=== PATIENT | female | born 1945 | race Caucasian/White ===

== ENCOUNTER 2022-09-03 09:08 | Outpatient (CLI) | payer MEDICARE, SELFPAY ==
[2022-09-03 09:37] LABS: Basophils Percent Auto 0.4 % (0.2-1.2); Eosinophils Absolute Auto 0.2 K/mm3 (0-0.3); Eosinophils Percent Auto 2.7 % (0-4.4); Hematocrit 42.6 % (37.0-47.0); Hemoglobin 14.4 g/dL (12.0-15.0); Immature Granulocyte Absolute 0.02 K/mm3 (0.00-0.031); Immature Granulocyte Percent A 0.3 % (0-0.5); Lymphocytes Absolute Auto 2.39 K/mm3 (0.9-3.2); Lymphocytes Percent Auto 35.5 % (18.3-44.2); Mean Corpuscular HGB Conc 33.8 g/dl (32-36); Mean Corpuscular Hemoglobin 32.3 pg (26-34); Mean Corpuscular Volume 95.5 fl (80-100); Mean Platelet Volume 10.1 fl (7.4-10.4); Monocytes Absolute Auto 0.4 K/mm3 (0.1-0.6); Monocytes Percent Auto 5.6 % (2.6-8.5); Neutrophils Absolute Auto 3.7 K/mm3 (1.3-6.7); Neutrophils Percent Auto 55.5 % (45.5-73.1); Platelet Count Result 200 k/mm3 (150-375); Red Blood Count 4.46 M/mm3 (4.2-5.4); Red Cell Distribution Width 13.3 % (11.5-14.5); White Blood Count 6.7 K/mm3 (4.5-10.0)
[2022-09-03 11:23] LABS: Anion Gap 10 mmol/L (8-16); Blood Urea Nitrogen 21 mg/dL (7-17); Calcium 9.1 mg/dL (8.4-10.2); Carbon Dioxide 28 mmol/L (22-30); Chloride 102 mmol/L (98-107); Estimated Glomerular Filt Rate > 60; Glucose 124 mg/dL (65-110); Sodium 140 mmol/L (137-145)
[2022-09-05 23:24] LABS: Anti Cardio Antibody IgM <2.0 MPL-U/mL (<20.0); Anti Cardiolipin Antibody IgA <2.0 APL-U/mL (<20.0); Anti Cardiolipin Antibody IgG <2.0 GPL-U/mL (<20.0)
[2022-09-08 20:53] LABS: Lupus dRVVT Screen 33 sec (<=45); PTT-LA Screen 33 sec (<=40)
== END 2022-09-03 09:09 | disposition home or self-care (01) ==
LOC: ANHLAB 09:09
PROVIDERS: PCP Otolaryngology; Visit Provider Internal Medicine Hematology & Oncology
DX: R76.0 Raised antibody titer (principal)
CPT/HCPCS: 36415; 80048; 85025; 85613; 85730; 86146; 86147

== ENCOUNTER 2022-10-15 12:46 | Outpatient (CLI) | payer MEDICARE, SELFPAY ==
[2022-10-15 13:03] LABS: Basophils Percent Auto 0.4 % (0.2-1.2); Eosinophils Absolute Auto 0.3 K/mm3 (0-0.3); Eosinophils Percent Auto 4.1 % (0-4.4); Hematocrit 42.5 % (37.0-47.0); Hemoglobin 14.8 g/dL (12.0-15.0); Immature Granulocyte Absolute 0.01 K/mm3 (0.00-0.031); Immature Granulocyte Percent A 0.1 % (0-0.5); Lymphocytes Absolute Auto 2.54 K/mm3 (0.9-3.2); Lymphocytes Percent Auto 37.5 % (18.3-44.2); Mean Corpuscular HGB Conc 34.8 g/dl (32-36); Mean Corpuscular Hemoglobin 32.4 pg (26-34); Mean Platelet Volume 10.2 fl (7.4-10.4); Monocytes Absolute Auto 0.4 K/mm3 (0.1-0.6); Monocytes Percent Auto 5.5 % (2.6-8.5); Neutrophils Absolute Auto 3.6 K/mm3 (1.3-6.7); Neutrophils Percent Auto 52.4 % (45.5-73.1); Platelet Count Result 196 k/mm3 (150-375); Red Blood Count 4.57 M/mm3 (4.2-5.4); Red Cell Distribution Width 12.7 % (11.5-14.5); White Blood Count 6.8 K/mm3 (4.5-10.0)
[2022-10-15 16:39] LABS: Anion Gap 5 mmol/L (8-16); Blood Urea Nitrogen 16 mg/dL (7-17); Carbon Dioxide 30 mmol/L (22-30); Chloride 103 mmol/L (98-107); Estimated Glomerular Filt Rate > 60; Glucose 115 mg/dL (65-110); Potassium 3.8 mmol/L (3.4-5.0); Sodium 138 mmol/L (137-145)
[2022-10-21 02:42] LABS: Anti Cardio Antibody IgM <2.0 MPL-U/mL (<20.0); Anti Cardiolipin Antibody IgA <2.0 APL-U/mL (<20.0); Anti Cardiolipin Antibody IgG <2.0 GPL-U/mL (<20.0)
[2022-10-21 16:08] LABS: Lupus dRVVT Screen 31 sec (<=45); PTT-LA Screen 32 sec (<=40)
== END 2022-10-15 12:47 | disposition home or self-care (01) ==
LOC: ANHLAB 12:46
PROVIDERS: PCP Otolaryngology; Visit Provider Internal Medicine Hematology & Oncology
DX: R76.0 Raised antibody titer (principal)
CPT/HCPCS: 36415; 80048; 85025; 85613; 85730; 86146; 86147

== ENCOUNTER 2024-09-20 10:11 | Inpatient (IN) | payer MEDICARE, SELFPAY ==
[2024-09-20] VITALS (14 sets, daily range): BP systolic 116–140; BP diastolic 60–92; PULSE 65–83; RESP 16–20; TEMP 36.4–36.6; O2SAT 94–100; BMI 36.4
--- NOTE | ~2024-09-20 | CT_ITS ---
CT head without contrast Indication: Altered mental status Technique: Serial scans were obtained through the brain without the administration of contrast. Dose reduction technique was used on this scan by utilizing automated exposure control and iterative recon struction technique. The dose-length product (DLP) was 681.00 mGy-cm. Findings: There is no evidence of intracranial hemorrhage, mass lesion, or acute infarct. The ventri cles and subarachnoid spaces are dilated, consistent with mild atrophy. Low attenuation regions are seen within the periventricular white matter bilaterally, likely representing changes from chronic mi crovascular ischemic disease. There is no evidence of edema, mass effect or midline shift. The visu alized paranasal sinuses and mastoid air cells are clear. Impression: No intracranial hemorrhage, mass, or acute infarct. Atrophy and chronic white matter changes, as above. Reviewed, dictated and finalized at location . KKEEPER Impression: No intracranial hemorrhage, mass, or acute infarct. Atrophy and chronic white matter changes, as above.
--- NOTE | ~2024-09-20 | XR_ITS ---
Portable chest x-ray Comparison: None Clinical History: Weakness, altered mental status Findings: Lungs are clear, without focal consolidation or pleural effusion. Cardiomediastinal silho uette is minimally prominent, possibly due to AP technique. Bones and soft tissues are unremarkable. Impression: Clear lungs. Reviewed, dictated and finalized at [facility]. OLOGY SPECIALIST Impression: Clear lungs.
--- NOTE | 2024-09-20 10:49 | ECG_ITS ---
Test Date: 2024-09-20 11:10:05 Measurements Intervals [place] Rate: 73 P: 15 LA: 152 QRS: -15 QRSD: 81 T: 18 QT: 392 QTc: 433 Interpretive Statements SINUS RHYTHM LOW QRS VOLTAGE IN PRECORDIAL LEADS VOLTAGE CRITERIA FOR LVH BASELINE ARTIFACT- I, III BORDERLINE ECG No previous ECG available for comparison Electronically Signed On 09-20-2024 11:35:03 [employer] by Gurmeet Baltazar D.O.
[2024-09-20] MEDS: SODIUM CHLORIDE 0.9% IV 1,000 ML 999 ML IV CONT (11:11)
[2024-09-20 11:17] LABS: Glucose Point of Care 124 mg/dl (65-105)
[2024-09-20 11:20] LABS: Basophils Percent Auto 0.8 % (0.2-1.2); Hemoglobin 13.6 g/dL (12.0-15.0); Immature Granulocyte Absolute 0.01 K/mm3 (0.00-0.031); Immature Granulocyte Percent A 0.3 % (0-0.5); Lymphocytes Percent Auto 25.5 % (18.3-44.2); Mean Corpuscular HGB Conc 34.9 g/dl (32-36); Mean Corpuscular Hemoglobin 31.9 pg (26-34); Mean Corpuscular Volume 91.5 fl (80-100); Mean Platelet Volume 10.4 fl (7.4-10.4); Monocytes Absolute Auto 0.5 K/mm3 (0.1-0.6); Monocytes Percent Auto 13.3 % (2.6-8.5); Neutrophils Absolute Auto 2.3 K/mm3 (1.3-6.7); Neutrophils Percent Auto 59.1 % (45.5-73.1); Platelet Count Result 162 k/mm3 (150-375); Red Blood Count 4.26 M/mm3 (4.2-5.4); Red Cell Distribution Width 13.3 % (11.5-14.5); White Blood Count 3.9 K/mm3 (4.5-10.0)
[2024-09-20 11:32] LABS: Lipase 42 U/L (23-300); Magnesium 1.8 mg/dL (1.6-2.3); Phosphorus 3.2 mg/dL (2.5-4.5)
[2024-09-20 11:33] LABS: Alanine Aminotransferase 18 U/L (6-35); Albumin Level 3.8 g/dL (3.5-5.1); Alkaline Phosphatase 82 U/L (38-126); Anion Gap 6 mmol/L (4-12); Aspartate Amino Transferase 24 U/L (14-36); Bilirubin,Total 0.5 mg/dL (0.2-1.3); Blood Urea Nitrogen 14 mg/dL (7-17); Calcium 8.4 mg/dL (8.4-10.2); Carbon Dioxide 25 mmol/L (22-30); Chloride 105 mmol/L (98-107); Estimated CRCL calculation 55 ml/min; Estimated Glomerular Filt Rate > 60; Glucose 125 mg/dL (65-110); Potassium 3.8 mmol/L (3.4-5.0); Sodium 136 mmol/L (137-145)
[2024-09-20 11:34] LABS: INR 1.1; Prothrombin Time 14.2 Seconds (11.1-14.7)
[2024-09-20 11:35] LABS: Partial Thromboplastin Time 28.8 Seconds (22.3-36.8)
[2024-09-20 11:44] LABS: Troponin I < 0.012 ng/mL (0.000-0.034)
[2024-09-20 11:57] LABS: Influenza A QL RT-PCR Negative (Negative); Influenza B QL RT-PCR Negative (Negative); RSV RNA, RT-PCR Negative (Negative); SARS-CoV-2 RNA PCR Positive (Negative)
[2024-09-20 12:20] LABS: Add Urine Microscopic? YES; Appearance Urine Clear (Clear); Bacteria Urine None Seen /hpf; Bilirubin Urine Negative (Negative); Blood Urine Negative (Negative); Color Urine Yellow (Yellow); Glucose Urine UA Negative (Negative); Ketones Urine Negative (Negative); Leukocyte Esterase Ur Negative LEU/UL (Negative); Mucus Urine Present /lpf; Nitrate Urine Negative (Negative); Non Pathogenic Casts 0-2; Protein Urine Trace mg/dL (Negative); RBC Urine 0-2 /hpf (0-2); Specific Grav Ur 1.025 (1.001-1.035); Squamous Epithelial Cell Urine None Seen /hpf (Few); Urobilinogen Urine 0.2 mg/dL (<2.0); WBC Urine 0-5 /hpf (0-3)
--- NOTE | 2024-09-20 13:35 | ED_ITS ---
HPI - General Adult General Chief complaint: Neuro Symptoms/Deficit Stated complaint: nausea vomiting diarrhea confusion Time Seen by Provider: 09/20/24 10:48 History of Present Illness HPI narrative: this is an 79-year-old female history of white disease ED with chief confusion. Over the last several days the patient has been having nausea vomiting and diarrhea. Earlier this morning she had a period of confusion where she cannot figure out how to use the phone. Family was concerned they called EMS and she was brought to hospital for evaluation. At this time the patient Is resting comfortably in bed. She has an NIH is 0 with no neurologic deficits. She is denying fevers chills chest pain difficulty breathing abdominal pain. She is not nauseous at the moment. One of her family members has recently been sick with COVID. Related Data Home Medications Medication Instructions Recorded Confirmed Vitamin D3 2,000 units PO DAILY 10/15/21 10/15/21 diclofenac sodium 75 mg 75 mg PO DAILY 10/15/21 10/15/21 tablet,delayed release escitalopram oxalate 5 mg tablet 5 mg PO 04/15/23 Allergies Allergy/AdvReac Type Severity Reaction Status Date / Time pneumococcal vaccine Allergy Mild Hives Verified 05/17/23 10:02 [facility] Past Medical History Medical History Anxiety Arthritis Colon cancer Vaginitis Surgical History Surgical History H/O hernia repair History of cholecystectomy History of colon surgery Family History Family History Father Diabetes mellitus Mother Heart disease Colon cancer Sibling Colon cancer Other Malignant neoplasm of prostate Social History Social History Smoking status: Never smoker Alcohol intake: never Substance use: never Substance use type: does not use Living arrangements: alone Spiritual care concerns: No Exam Narrative: APPEARANCE: No apparent distress. smiling and laughing during interview Head: atraumatic. EYES: EOMI, NOSE: Atraumatic NECK: Trachea midline RESPIRATORY: No increased rate of breathing, CTAB CARDIOVASCULAR: RRR, ABDOMINAL: Non-distended soft nontender no guarding rebound MUSCULOSKELETAl: No obvious deformities NEURO: Alert. Cranial nerves 2-12 grossly intact. Sensation light touch, motor function cerebellar function intact for 4 extremities. Gait exam was Deferred SKIN:: Warm, dry. Normal color PSYCHIATRIC: Normal affect Course Vital Signs Vital signs: Vital Signs Temperature 98 F 09/20/24 10:24 Pulse Rate 74 09/20/24 10:24 Respiratory Rate 19 09/20/24 10:24 Blood Pressure 140/73 09/20/24 10:24 Pulse Oximetry 95 09/20/24 10:24 Oxygen Delivery Room Air 09/20/24 10:24 Temperature 98 F 09/20/24 10:24 Pulse Rate 83 09/20/24 14:04 Respiratory Rate 20 09/20/24 14:04 Blood Pressure 126/92 H 09/20/24 14:04 Pulse Oximetry 100 09/20/24 14:04 Oxygen Delivery Room Air 09/20/24 10:24 Medical Decision Making MDM Narrative Medical decision making narrative: -Course: 79-year-old female presenting with several days of nausea/vomiting/diarrhea and then an episode of confusion earlier today. Family was initially concerned for CVA, NIH is 0 and there is no concern for CVA. Infectious workup was positive for COVID. The rest of her imaging laboratory studies were within normal limits. While the patient is saturating well on room air at rest, she failed an ambulatory pulse ox test and desaturated to 82% after a short walk. Patient will be admitted to the hospital for further management. -DDX includes but is not limited to: UTI sepsis stroke pneumonia viral syndrome -Co-morbidities complicating care: white matter disease, anxiety -Social determinants of health: lives with family, denies use of drugs or alcohol -Hx from independent Sources: family at bedside -Independent interpretation of studies: labs imaging reviewed Independent EKG interpretation: Rhythm [sinus], Rate [73], [place] -[normal], [place] -[normal], QRS [narrow], QTC [normal], T waves -[negative for concerning inversions], ST Segments - [Negative for concerning elevations] Final interpretations: [Normal Sinus Rhythm] -Interventions: 1 L NS -Shared decision making / Disposition:Admitted. Vital Signs Vital Signs: Vital Signs Temperature 98 F 09/20/24 10:24 Pulse Rate 74 09/20/24 10:24 Respiratory Rate 19 09/20/24 10:24 Blood Pressure 140/73 09/20/24 10:24 Pulse Oximetry 95 09/20/24 10:24 Oxygen Delivery Room Air 09/20/24 10:24 Temperature 98 F 09/20/24 10:24 Pulse Rate 83 09/20/24 14:04 Respiratory Rate 20 09/20/24 14:04 Blood Pressure 126/92 H 09/20/24 14:04 Pulse Oximetry 100 09/20/24 14:04 Oxygen Delivery Room Air 09/20/24 10:24 Lab Data 09/20/24 11:13 09/20/24 11:13 Labs: Lab Results 09/20/24 09/20/24 09/20/24 Range/Units 11:10 11:13 11:44 WBC 3.9 L (4.5-10.0) K/mm3 RBC 4.26 (4.2-5.4) M/mm3 Hgb 13.6 (12.0-15.0) g/dL Hct 39.0 (37.0-47.0) % MCV 91.5 (80-100) fl MCH 31.9 (26-34) pg MCHC 34.9 (32-36) g/dl RDW 13.3 (11.5-14.5) % Plt Count 162 (150-375) k/mm3 MPV 10.4 (7.4-10.4) fl Immature Gran % (Auto) 0.3 (0-0.5) % Neut % (Auto) 59.1 (45.5-73.1) % Lymph % (Auto) 25.5 (18.3-44.2) % Major % (Auto) 13.3 H (2.6-8.5) % Eos % (Auto) 1.0 (0-4.4) % Baso % (Auto) 0.8 (0.2-1.2) % Lymph # (Auto) 1.00 (0.9-3.2) K/mm3 Major # (Auto) 0.5 (0.1-0.6) K/mm3 Eos # (Auto) 0.0 (0-0.3) K/mm3 Baso # (Auto) 0.0 (0.0-0.1) K/mm3 Abs Immat Gran (auto) 0.01 (0.00-0.031) K/mm3 Absolute Neuts (auto) 2.3 (1.3-6.7) K/mm3 Absolute Nucleated RBC 0.000 (0.0-0.012) K/mm3 Nucleated RBC % 0.0 (0.0-0.2) % PT 14.2 (11.1-14.7) Seconds INR 1.1 APTT 28.8 (22.3-36.8) Seconds Sodium 136 L (137-145) mmol/L Potassium 3.8 (3.4-5.0) mmol/L Chloride 105 (98-107) mmol/L Carbon Dioxide 25 (22-30) mmol/L Anion Gap 6 (4-12) mmol/L BUN 14 (7-17) mg/dL Creatinine 0.70 (0.7-1.0) mg/dL Estim Creat Clear Calc 55 ml/min Estimated GFR > 60 (59 - ) Glucose 125 H (65-110) mg/dL POC Capillary Glucose 124 H (65-105) mg/dl Calcium 8.4 (8.4-10.2) mg/dL Phosphorus 3.2 (2.5-4.5) mg/dL Magnesium 1.8 (1.6-2.3) mg/dL Total Bilirubin 0.5 (0.2-1.3) mg/dL AST 24 (14-36) U/L ALT 18 (6-35) U/L Alkaline Phosphatase 82 (38-126) U/L Troponin I < 0.012 (0.000-0.034) ng/mL Total Protein 7.0 (6.3-8.2) g/dL Albumin 3.8 (3.5-5.1) g/dL Lipase 42 (23-300) U/L TSH (Reflex) 1.330 (0.465-4.68) uIU/mL Urine Color Yellow (Yellow) Urine Appearance Clear (Clear) Urine pH 5.0 (5.0-9.0) Ur Specific [place] 1.025 (1.001-1.035) Urine Protein Trace (Negative) mg/dL Urine Glucose (UA) Negative (Negative) mg/dL Urine Ketones Negative (Negative) mg/dL Ur Blood (Man) Negative (Negative) Urine Nitrate Negative (Negative) Urine Bilirubin Negative (Negative) Urine Urobilinogen 0.2 (<2.0) mg/dL Leukocyte Esterase Rfl Negative (Negative) KAREN/UL Urine RBC 0-2 (0-2) /hpf Urine WBC 0-5 (0-3) /hpf Ur Squamous Epith Cells None seen (Few) /hpf Urine Bacteria None seen /hpf Urine Casts 0-2 Urine Mucus Present /lpf Influenza A (RT-PCR) Negative (Negative) Influenza B (RT-PCR) Negative (Negative) RSV (RT-PCR) Negative (Negative) SARS-CoV-2 RNA (RT-PCR) Positive A (Negative) Discharge Plan Discharge Clinical Impression: COVID, Hypoxic respiratory failure Patient Disposition: Still a Patient Condition: Stable Instructions: COVID-19 (Coronavirus Disease 2019) (ED) Additional Instructions: You were seen emergency department and have COVID. Please take Motrin Tylenol for body aches. Please use Zofran for nausea. Return to ED if you develop chest pain shortness of breath or feel like her condition is getting worse Prescriptions: New ondansetron 4 mg tablet,disintegrating 4 mg PO Q8H PRN (Reason: nausea and vomiting) Qty: 30 0RF No Action escitalopram oxalate 5 mg tablet 5 mg PO clobetasol 0.05 % ointment 1 applic topical QHS Qty: 30 0RF Rx Instructions: Apply vaginally every other day for one month, then twice weekly for one month diclofenac sodium 75 mg tablet,delayed release (DR/EC) 75 mg PO DAILY Vitamin D3 2,000 units PO DAILY Follow-up/Referrals: Shonda,Blaire Koenig APRN [Primary Care Provider] -
--- NOTE | 2024-09-20 14:01 | PC.NURSE ---
Ambulated pt with pulse ox per EDP. Pt oxygen dropped to 83%. Pt repositioned back into bed and MD made aware.
--- NOTE | 2024-09-20 14:41 | ECG_ITS ---
Test Date: 2024-09-20 14:45:45 Measurements Intervals [place] Rate: 69 P: 28 ND: 151 QRS: -10 QRSD: 80 T: 30 QT: 396 QTc: 427 Interpretive Statements SINUS RHYTHM LOW QRS VOLTAGE IN PRECORDIAL LEADS BASELINE ARTIFACT- I, II, III, AVR, AVL, AVF BORDERLINE ECG Compared to ECG 09/20/2024 11:10:05 NO SIGNIFICANT CHANGE Electronically Signed On 09-20-2024 14:48:10 [employer] by Gurmeet Baltazar D.O.
--- NOTE | 2024-09-20 14:56 | PM.IMPN ---
Progress Note: A&P Assessment and Plan (1) Hypoxic respiratory failure: Code(s): J96.91 - Respiratory failure, unspecified with hypoxia Status: Acute (2) COVID: Code(s): U07.1 - COVID-19 Status: Acute (3) Anxiety: Code(s): F41.9 - Anxiety disorder, unspecified Status: Acute Subjective Date/time seen: 09/20/24 14:56 Interval history: This is an 79-year-old female a significant past medical history of anxiety, colon cancer, arthritis, hernia repair who presented to the hospital for further evaluation of confusion. She has had several days of nausea, vomiting, diarrhea and then this morning was having periods of confusion and could not figure out how to dial the phone. Family called EMS who brought her to the hospital for further evaluation. Patient denies. Patient endorses. Workup in the hospital included a head CT which was negative for any intracranial hemorrhage, mass, or acute infarct, showed atrophy and chronic white matter changes. Chest x-ray was negative. Initial labs showed a white blood cell count of 3.9, sodium 136, troponin was negative, TSH 1.330, otherwise unremarkable. UA was obtained and was negative. Respiratory panel negative for influenza a and B, RSV. She is COVID positive. Plan was to discharge her home from the ER however when they did a home O2 eval on her she desaturated down to 85% on room air. She is being admitted in this setting for further treatment of her symptoms. Exam Narrative: General: In no acute distress, well nourished Head: atraumatic, no encephalopathy Eyes: EOMI, PERRLA, sclera clear ENT: moist mucous membranes, nasal passages clear Neck: supple, no JVD, no adenopathy, trachea midline Cardiac: Normal S1 and S2. No murmur, gallops or friction rubs, peripheral pulses intact. Respiratory: Lungs clear to auscultation, no adventitious lung sounds Gastrointestinal: soft, non-distended, non-tender, normoactive bowel sounds. : voiding without difficulty. Extremities: moves all extremities well, no edema, good ROM, strength 5/5 Skin: clean, dry, intact. No wounds or lesions. Neuro: Alert and oriented x4, cranial nerves intact, no neuro deficits. Psych: normal mood, normal affect, interactive Objective Data Vital Signs Vital Signs: Vital Signs - 24 hr 09/20/24 10:24 09/20/24 10:39 09/20/24 11:01 Temperature 98 F Pulse Rate 74 72 72 Respiratory Rate 19 20 16 Blood Pressure 140/73 116/63 128/74 Pulse Oximetry 95 95 98 Oxygen Delivery Room Air 09/20/24 11:26 09/20/24 12:48 09/20/24 13:16 Temperature Pulse Rate 69 70 Respiratory Rate 18 18 Blood Pressure 129/75 131/73 Pulse Oximetry 97 95 99 Oxygen Delivery 09/20/24 14:04 09/20/24 14:11 09/20/24 14:13 Temperature Pulse Rate 83 83 67 Respiratory Rate 20 20 20 Blood Pressure 126/92 H 126/92 H 126/92 H Pulse Oximetry 100 100 100 Oxygen Delivery Intake/Output Intake/Output: Intake & Output 09/17/24 09/18/24 09/19/24 09/20/24 23:59 23:59 23:59 23:59 Intake Total 1000 Balance 1000 Meds/Results Radiology Results: ITS Impressions Head CT 09/20/24 11:57 Impression: No intracranial hemorrhage, mass, or acute infarct. Atrophy and chronic white matter changes, as above. Chest X-Ray 09/20/24 11:59 Impression: Clear lungs. Labs Labs: Laboratory Results - last 24 hr 09/20/24 09/20/24 09/20/24 11:10 11:13 11:44 WBC 3.9 L RBC 4.26 Hgb 13.6 Hct 39.0 MCV 91.5 MCH 31.9 MCHC 34.9 RDW 13.3 Plt Count 162 MPV 10.4 Immature Gran % (Auto) 0.3 Neut % (Auto) 59.1 Lymph % (Auto) 25.5 [place] % (Auto) 13.3 H Eos % (Auto) 1.0 Baso % (Auto) 0.8 Lymph # (Auto) 1.00 [place] # (Auto) 0.5 Eos # (Auto) 0.0 Baso # (Auto) 0.0 Abs Immat Gran (auto) 0.01 Absolute Neuts (auto) 2.3 Absolute Nucleated RBC 0.000 Nucleated RBC % 0.0 PT 14.2 INR 1.1 APTT 28.8 Sodium 136 L Potassium 3.8 Chloride 105 Carbon Dioxide 25 Anion Gap 6 BUN 14 Creatinine 0.70 Estim Creat Clear Calc 55 Estimated GFR > 60 Glucose 125 H POC Capillary Glucose 124 H Calcium 8.4 Phosphorus 3.2 Magnesium 1.8 Total Bilirubin 0.5 AST 24 ALT 18 Alkaline Phosphatase 82 Troponin I < 0.012 Total Protein 7.0 Albumin 3.8 Lipase 42 TSH (Reflex) 1.330 Urine Color Yellow Urine Appearance Clear Urine pH 5.0 Ur Specific [place] 1.025 Urine Protein Trace Urine Glucose (UA) Negative Urine Ketones Negative Ur Blood (Man) Negative Urine Nitrate Negative Urine Bilirubin Negative Urine Urobilinogen 0.2 Leukocyte Esterase Rfl Negative Urine RBC 0-2 Urine WBC 0-5 Ur Squamous Epith Cells None seen Urine Bacteria None seen Urine Casts 0-2 Urine Mucus Present Influenza A (RT-PCR) Negative Influenza B (RT-PCR) Negative RSV (RT-PCR) Negative SARS-CoV-2 RNA (RT-PCR) Positive A
--- NOTE | 2024-09-20 15:16 | P.HP_ITS ---
H&P: HPI History of Present Illness Date/Time: 09/20/24 15:16 Chief Complaint: Confusion Narrative: This is an 79-year-old female a significant past medical history of anxiety, colon cancer, arthritis, hernia repair who presented to the hospital for further evaluation of confusion. patient is a poor historian and was to presenting illness was obtained from the medical record. She apparently had several days of nausea, vomiting, diarrhea and then this morning was having periods of confusion and could not figure out how to dial the phone. Family called EMS who brought her to the hospital for further evaluation. Patient denies any fever, chills, nausea, vomiting, diarrhea, abdominal pain, chest pain, shortness a breath. Workup in the hospital included a head CT which was negative for any intracranial hemorrhage, mass, or acute infarct, showed atrophy and chronic white matter changes. Chest x-ray was negative. Initial labs showed a white blood cell count of 3.9, sodium 136, troponin was negative, TSH 1.330, otherwise unremarkable. UA was obtained and was negative. Respiratory panel negative for influenza a and B, RSV. She is COVID positive. Plan was to discharge her home from the ER however when they did a home O2 eval on her she desaturated down to 85% on room air. She is being admitted in this setting for further treatment of her symptoms. Review of Systems Review of Systems: All systems reviewed & are unremarkable except as noted in HPI and below Constitutional: Constitutional: Reports as per HPI and Reports no additional constitutional complaints Eyes: Eyes: Reports as per HPI and Reports no additional eye complaints ENT: Reports system reviewed and no additional complaints, except as documented and Reports as per HPI Cardiovascular: Cardiovascular: Reports as per HPI and Reports no additional cardiovascular complaints Respiratory: Respiratory: Reports as per HPI and Reports no additional respiratory complaints Gastrointestinal: Gastrointestinal: Reports as per HPI and Reports no addition al gastrointestinal complaints Genitourinary: Genitourinary: Reports no additional female genitourinary complaints and Reports as per HPI Musculoskeletal: Musculoskeletal: Reports no additional musculoskeletal complaints and Reports as per HPI Integumentary/Breasts: Skin/Breast: Reports system reviewed and no additional complaints, except as docu and Reports as per HPI Neurologic: Reports system reviewed and no additional complaints, except as documented and Reports as per HPI Psychiatric: Psychiatric: Reports no additional psychiatric complaints and Reports as per HPI [facility], [facility] Past Medical History Medical History Anxiety Arthritis Colon cancer Vaginitis Surgical History Surgical History H/O hernia repair History of cholecystectomy History of colon surgery Family History Family History Father Diabetes mellitus Mother Heart disease Colon cancer Sibling Colon cancer Other Malignant neoplasm of prostate Social History Social History Smoking status: Never smoker Alcohol intake: never Substance use: never Substance use type: does not use Do You Feel Safe in your Home?: Yes Lack of Transportation: No Lack of Food: Never True Current Housing: I Have Housing Concerned About Future Housing: No Difficulty Paying Gas/Electric Bills: No Difficulty Paying for Meds: No Currently Unemployed: No Education: High School Diploma/GED Difficulty w/ Childcare or Family Care: No Living arrangements: alone Spiritual care concerns: No Meds Home Medications and Allergies Home Medications Medication Instructions Recorded Confirmed Type Vitamin D3 2,000 units PO DAILY 10/15/21 09/20/24 History diclofenac sodium 75 mg 75 mg PO DAILY 10/15/21 09/20/24 History tablet,delayed release escitalopram oxalate 5 mg tablet 5 mg PO DAILY 04/15/23 09/20/24 History donepezil 5 mg tablet 5 mg PO HS 09/20/24 09/20/24 History nystatin 100,000 unit/gram topical See Rx Instructions .Route .COMPLEX 09/20/24 09/20/24 History cream ondansetron 4 mg disintegrating 4 mg PO Q8H PRN nausea and 09/20/24 Rx tablet vomiting #30 tabs triamcinolone acetonide 0.1 % See Rx Instructions .Route .COMPLEX 09/20/24 09/20/24 History topical cream Allergies Allergy/AdvReac Type Severity Reaction Status Date / Time pneumococcal vaccine Allergy Mild Hives Verified 05/17/23 10:02 Vital Signs Vital Signs - 24 hr 09/20/24 10:24 09/20/24 10:39 09/20/24 11:01 Temperature 98 F Pulse Rate 74 72 72 Respiratory Rate 19 20 16 Blood Pressure 140/73 116/63 128/74 Pulse Oximetry 95 95 98 Oxygen Delivery Room Air 09/20/24 11:26 09/20/24 12:48 09/20/24 13:16 Temperature Pulse Rate 69 70 Respiratory Rate 18 18 Blood Pressure 129/75 131/73 Pulse Oximetry 97 95 99 Oxygen Delivery 09/20/24 14:04 09/20/24 14:11 09/20/24 14:13 Temperature Pulse Rate 83 83 67 Respiratory Rate 20 20 20 Blood Pressure 126/92 H 126/92 H 126/92 H Pulse Oximetry 100 100 100 Oxygen Delivery Exam Narrative: General: In no acute distress, well nourished Head: atraumatic, no encephalopathy Eyes: EOMI, PERRLA, sclera clear ENT: moist mucous membranes, nasal passages clear Neck: supple, no JVD, no adenopathy, trachea midline Cardiac: Normal S1 and S2. No murmur, gallops or friction rubs, peripheral pulses intact. Respiratory: Lungs clear to auscultation, no adventitious lung sounds, dry cough, currently on 2 L nasal cannula Gastrointestinal: soft, non-distended, non-tender, normoactive bowel sounds. : voiding without difficulty. Extremities: moves all extremities well, no edema Skin: clean, dry, intact. No wounds or lesions. Neuro: Alert and confused, cranial nerves intact, no neuro deficits. Psych: normal mood, normal affect, interactive, pleasant H&P: Results Labs Labs: Short CBC 09/20/24 Range/Units 11:13 WBC 3.9 L (4.5-10.0) K/mm3 Hgb 13.6 (12.0-15.0) g/dL Hct 39.0 (37.0-47.0) % Plt Count 162 (150-375) k/mm3 BMP 09/20/24 11:13 Sodium 136 L Potassium 3.8 Chloride 105 Carbon Dioxide 25 BUN 14 Creatinine 0.70 Glucose 125 H Calcium 8.4 Cardiac Enzymes 09/20/24 Range/Units 11:13 Troponin I < 0.012 (0.000-0.034) ng/mL Liver Function 09/20/24 Range/Units 11:13 Total Bilirubin 0.5 (0.2-1.3) mg/dL AST 24 (14-36) U/L ALT 18 (6-35) U/L Alkaline Phosphatase 82 (38-126) U/L Albumin 3.8 (3.5-5.1) g/dL Urine 09/20/24 Range/Units 11:44 Urine Color Yellow (Yellow) Urine Appearance Clear (Clear) Urine pH 5.0 (5.0-9.0) Ur Specific [place] 1.025 (1.001-1.035) Urine Protein Trace (Negative) mg/dL Urine Glucose (UA) Negative (Negative) mg/dL Imaging CT scan - head: Radiologist's impression: CT head without contrast Indication: Altered mental status Technique: Serial scans were obtained through the brain without the administration of contrast. Dose reduction technique was used on this scan by utilizing automated exposure control and iterative reconstruction technique. The dose-length product (DLP) was 681.00 mGy-cm. Findings: There is no evidence of intracranial hemorrhage, mass lesion, or acute infarct. The ventricles and subarachnoid spaces are dilated, consistent with mild atrophy. Low attenuation regions are seen within the periventricular white matter bilaterally, likely representing changes from chronic microvascular ischemic disease. There is no evidence of edema, mass effect or midline shift. The visualized paranasal sinuses and mastoid air cells are clear. Impression: No intracranial hemorrhage, mass, or acute infarct. Atrophy and chronic white matter changes, as above. Reviewed, dictated and finalized at location M. NIC CHEMIST Chest x-ray: Radiologist's impression: Portable chest x-ray Comparison: None Clinical History: Weakness, altered mental status Findings: Lungs are clear, without focal consolidation or pleural effusion. Cardiomediastinal silhouette is minimally prominent, possibly due to AP technique. Bones and soft tissues are unremarkable. Impression: Clear lungs. Reviewed, dictated and finalized at location M. NIC CHEMIST Assessment and Plan Assessment and plan (1) Confusion: Code(s): R41.0 - Disorientation, unspecified Status: Acute Assessment and Plan: * head CT was is negative for any acute intracranial process, showed atrophy and chronic white matter changes. * Sodium 136, blood sugar 125, TSH was 1.330 * UA was negative for bacteria * patient was found to be COVID positive on respiratory panel * continue neuro checks Q shift (2) Hypoxic respiratory failure: Qualifiers: Chronicity: acute Qualified Code(s): J96.01 - Acute respiratory failure with hypoxia Code(s): J96.91 - Respiratory failure, unspecified with hypoxia Status: Acute Assessment and Plan: * chest x-ray was noted * respiratory panel positive for COVID * hypoxic with activity with desaturation down 85% on room air * patient started on remdesivir and dexamethasone * O2 as needed to keep the oxygen saturation greater than 92% * DuoNebs ordered q.6 p.r.n. (3) COVID: Code(s): U07.1 - COVID-19 Status: Acute Assessment and Plan: * COVID positive on respiratory panel * see above for detail (4) Anxiety: Code(s): F41.9 - Anxiety disorder, unspecified Status: Acute Assessment and Plan: * continue escitalopram Quality VTE Prophylaxis VTE prophylaxis: pharmacologic ordered Hospitalist [facility] Advance Care Plan I have confirmed that the patient's Advanced Care Plan is present, code status is documented, or surrogate decision maker is listed in patient medical record.: Yes Medication Reconciliation I have utilized all available resources to obtain, update and review the patients current medications (includes all prescriptions, OTC, herbals, cannabis , and nutritional supplements).: Yes
[2024-09-20 15:22] LABS: Troponin I < 0.012 ng/mL (0.000-0.034)
--- NOTE | 2024-09-20 15:33 | ADMGEN ---
This patient, Berta Tyler, was admitted to Medical Room 249-. Patient/family oriented to hospital policies and general routines including ID bracelet, bed and alarms, visiting hours, pain management, procedures, bathroom and other care routines, personal items, smoking policy, room service/diet, and visiting hours. Information on how to activate the Rapid Response Team has been discussed. Patient/Family are encouraged to report perceived risks to care and to ask questions if they do not understand what they are told or what they should do.
[2024-09-20] MEDS: dexAMETHasone SOD PHOS INJ 10 MG/ML 1 ML VIAL 6 MG IV PUSH (16:12)
[2024-09-20] MEDS: REMDESIVIR 200 MG/NS 250 ML 200 MG/250 ML BAG 150 MG IVPB (16:13)
[2024-09-20] MEDS: ONDANSETRON INJ 4 MG/2 ML VIAL IV PUSH (20:03)
[2024-09-21] VITALS (7 sets, daily range): BP systolic 115–151; BP diastolic 52–68; PULSE 65–114; RESP 18–20; TEMP 36.6–36.8; O2SAT 92–97
[2024-09-21 06:21] LABS: Hematocrit 39.5 % (37.0-47.0); Immature Granulocyte Absolute 0.01 K/mm3 (0.00-0.031); Immature Granulocyte Percent A 0.3 % (0-0.5); Lymphocytes Absolute Auto 1.05 K/mm3 (0.9-3.2); Lymphocytes Percent Auto 32.2 % (18.3-44.2); Mean Corpuscular HGB Conc 35.4 g/dl (32-36); Mean Corpuscular Hemoglobin 32.6 pg (26-34); Mean Corpuscular Volume 92.1 fl (80-100); Mean Platelet Volume 10.8 fl (7.4-10.4); Monocytes Absolute Auto 0.2 K/mm3 (0.1-0.6); Monocytes Percent Auto 5.2 % (2.6-8.5); Neutrophils Percent Auto 62.3 % (45.5-73.1); Platelet Count Result 175 k/mm3 (150-375); Red Blood Count 4.29 M/mm3 (4.2-5.4); Red Cell Distribution Width 13.2 % (11.5-14.5); White Blood Count 3.3 K/mm3 (4.5-10.0)
[2024-09-21 06:50] LABS: Alanine Aminotransferase 19 U/L (6-35); Albumin Level 3.7 g/dL (3.5-5.1); Alkaline Phosphatase 80 U/L (38-126); Anion Gap 6 mmol/L (4-12); Aspartate Amino Transferase 26 U/L (14-36); Bilirubin,Total 0.5 mg/dL (0.2-1.3); Blood Urea Nitrogen 13 mg/dL (7-17); Calcium 8.4 mg/dL (8.4-10.2); Carbon Dioxide 24 mmol/L (22-30); Chloride 109 mmol/L (98-107); Estimated CRCL calculation 55 ml/min; Estimated Glomerular Filt Rate > 60; Glucose 137 mg/dL (65-110); Potassium 4.2 mmol/L (3.4-5.0); Sodium 139 mmol/L (137-145)
[2024-09-21] MEDS: ENOXAPARIN 40 MG/0.4 ML SYRINGE SUB-Q (08:21)
--- NOTE | 2024-09-21 09:38 | P.PNIM_ITS ---
Progress Note: A&P Assessment and Plan (1) Confusion: Code(s): R41.0 - Disorientation, unspecified Status: Acute Assessment and Plan: * head CT was is negative for any acute intracranial process, showed atrophy and chronic white matter changes. * Sodium 136, blood sugar 125, TSH was 1.330 * UA was negative for bacteria * patient was found to be COVID positive on respiratory panel * continue neuro checks Q shift * -alert/oriented on exam- monitor (2) Hypoxic respiratory failure: Qualifiers: Chronicity: acute Qualified Code(s): J96.01 - Acute respiratory failure with hypoxia Code(s): J96.91 - Respiratory failure, unspecified with hypoxia Status: Acute Assessment and Plan: * chest x-ray was noted * respiratory panel positive for COVID * hypoxic with activity with desaturation down 85% on room air * patient started on remdesivir and dexamethasone-continue * O2 as needed to keep the oxygen saturation greater than 92% * DuoNebs ordered q.6 p.r.n. * -IS ordered-encouraged to use (3) COVID: Code(s): U07.1 - COVID-19 Status: Acute Assessment and Plan: * COVID positive on respiratory panel * see above for detail (4) Anxiety: Code(s): F41.9 - Anxiety disorder, unspecified Status: Acute Assessment and Plan: * continue escitalopram Time Spent With Patient Time with patient: Greater than 35 minutes Subjective Date/time seen: 09/21/24 09:38 Interval history: confusion Narrative retrieved from H/P: This is an 79-year-old female a significant past medical history of anxiety, colon cancer, arthritis, hernia repair who presented to the hospital for further evaluation of confusion. patient is a poor historian and was to presenting illness was obtained from the medical record. She apparently had several days of nausea, vomiting, diarrhea and then this morning was having periods of confusion and could not figure out how to dial the phone. Family called EMS who brought her to the hospital for further evaluation. Patient denies any fever, chills, nausea, vomiting, diarrhea, abdominal pain, chest pain, shortness a breath. Workup in the hospital included a head CT which was negative for any intracranial hemorrhage, mass, or acute infarct, showed atrophy and chronic white matter changes. Chest x-ray was negative. Initial labs showed a white blood cell count of 3.9, sodium 136, troponin was negative, TSH 1.330, otherwise unremarkable. UA was obtained and was negative. Respiratory panel negative for influenza a and B, RSV. She is COVID positive. Plan was to discharge her home from the ER however when they did a home O2 eval on her she desaturated down to 85% on room air. She is being admitted in this setting for further treatment of her symptoms. 09/21- seen and examined. She is still sob, we were able to wean her down to 1 l per NC. she c/o headache earlier- better now Review of Systems Review of Systems: All systems reviewed & are unremarkable except as noted in HPI and below Constitutional: Constitutional: Reports as per HPI and Reports no additional constitutional complaints Eyes: Eyes: Reports as per HPI and Reports no additional eye complaints ENT: Reports system reviewed and no additional complaints, except as documented and Reports as per HPI Cardiovascular: Cardiovascular: Reports as per HPI and Reports no additional cardiovascular complaints Respiratory: Respiratory: Reports as per HPI and Reports no additional respiratory complaints Gastrointestinal: Gastrointestinal: Reports as per HPI and Reports no a dditional gastrointestinal complaints Genitourinary: Genitourinary: Reports no additional female genitourinary complaints and Reports as per HPI Musculoskeletal: Musculoskeletal: Reports no additional musculoskeletal complaints and Reports as per HPI Integumentary/Breasts: Skin/Breast: Reports system reviewed and no additional complaints, except as docu and Reports as per HPI Neurologic: Reports system reviewed and no additional complaints, except as documented and Reports as per HPI Psychiatric: Psychiatric: Reports no additional psychiatric complaints and Reports as per HPI Exam Narrative: General: In no acute distress, well nourished Head: atraumatic, no encephalopathy Eyes: EOMI, PERRLA, sclera clear ENT: moist mucous membranes, nasal passages clear Neck: supple, no JVD, no adenopathy, trachea midline Cardiac: Normal S1 and S2. No murmur, gallops or friction rubs, peripheral pulses intact. Respiratory: Lungs clear to auscultation, no adventitious lung sounds, dry cough, currently on 2 L nasal cannula Gastrointestinal: soft, non-distended, non-tender, normoactive bowel sounds. : voiding without difficulty. Extremities: moves all extremities well, no edema Skin: clean, dry, intact. No wounds or lesions. Neuro: Alert and confused, cranial nerves intact, no neuro deficits. Psych: normal mood, normal affect, interactive, pleasant Objective Data Vital Signs Vital Signs: Vital Signs - 24 hr 09/20/24 10:24 09/20/24 10:39 09/20/24 11:01 Temperature 98 F Pulse Rate 74 72 72 Respiratory Rate 19 20 16 Blood Pressure 140/73 116/63 128/74 Pulse Oximetry 95 95 98 Oxygen Delivery Room Air Oxygen Flow Rate 09/20/24 11:26 09/20/24 12:48 09/20/24 13:16 Temperature Pulse Rate 69 70 Respiratory Rate 18 18 Blood Pressure 129/75 131/73 Pulse Oximetry 97 95 99 Oxygen Delivery Oxygen Flow Rate 09/20/24 14:04 09/20/24 14:11 09/20/24 14:13 Temperature Pulse Rate 83 83 67 Respiratory Rate 20 20 20 Blood Pressure 126/92 H 126/92 H 126/92 H Pulse Oximetry 100 100 100 Oxygen Delivery Oxygen Flow Rate 09/20/24 15:36 09/20/24 16:00 09/20/24 20:11 Temperature 97.7 F Pulse Rate 70 Respiratory Rate 18 Blood Pressure 125/79 Pulse Oximetry 98 98 94 Oxygen Delivery Nasal Cannula Nasal Cannula Oxygen Flow Rate 2 2 09/20/24 22:00 09/20/24 20:00 09/21/24 06:00 Temperature 97.5 F L 97.9 F Pulse Rate 65 114 H Respiratory Rate 18 18 Blood Pressure 120/60 115/52 L Pulse Oximetry 95 94 93 Oxygen Delivery Nasal Cannula Oxygen Flow Rate 2 09/21/24 09:24 Temperature Pulse Rate Respiratory Rate Blood Pressure Pulse Oximetry 95 Oxygen Delivery Nasal Cannula Oxygen Flow Rate 2 Intake/Output Intake/Output: Intake & Output 09/18/24 09/19/24 09/20/24 09/21/24 23:59 23:59 23:59 23:59 Intake Total 1240 Output Total 300 Balance 1240 -300 Meds/Results Medications: Active Medications Generic Name Dose Route Start Last Admin Trade Name Freq PRN Reason Stop Dose Admin Acetaminophen 650 mg 09/20/24 15:23 Acetaminophen 325 Mg Tablet PO Q4H PRN Mild Pain (1-3) or Fever Albuterol/Ipratropium 3 ml 09/20/24 15:29 Ipratropium 0.5 Mg/Albuterol Sulfate 2.5 Mg Ampul.Neb 3 Ml INHALATION Q6HRT PRN shortness of breath/wheezing Dexamethasone Sodium Phosphate 6 mg 09/20/24 15:20 09/20/24 16:12 Dexamethasone Sod Phos Inj 10 Mg/Ml 1 Ml Vial IV PUSH 09/29/24 15:21 6 mg Q24H SCARLETT Administration Enoxaparin Sodium 40 mg 09/21/24 09:00 09/21/24 08:21 Enoxaparin 40 Mg/0.4 Ml Syringe SUB-Q 40 mg DAILY SCARLETT Administration Remdesivir 100 mg in 250 mls @ 250 mls/hr 09/21/24 22:00 IVPB 09/24/24 22:59 Q24H SCARLETT Ondansetron HCl 4 mg 09/20/24 15:23 09/20/24 20:03 Ondansetron Inj 4 Mg/2 Ml Vial IV PUSH 4 mg Q6H PRN Administration Nausea And Vomiting Radiology Results: ITS Impressions Head CT 09/20/24 11:57 Impression: No intracranial hemorrhage, mass, or acute infarct. Atrophy and chronic white matter changes, as above. Chest X-Ray 09/20/24 11:59 Impression: Clear lungs. Labs Labs: Laboratory Results - last 24 hr 09/20/24 09/20/24 09/20/24 11:10 11:13 11:44 WBC 3.9 L RBC 4.26 Hgb 13.6 Hct 39.0 MCV 91.5 MCH 31.9 MCHC 34.9 RDW 13.3 Plt Count 162 MPV 10.4 Immature Gran % (Auto) 0.3 Neut % (Auto) 59.1 Lymph % (Auto) 25.5 [place] % (Auto) 13.3 H Eos % (Auto) 1.0 Baso % (Auto) 0.8 Lymph # (Auto) 1.00 [place] # (Auto) 0.5 Eos # (Auto) 0.0 Baso # (Auto) 0.0 Abs Immat Gran (auto) 0.01 Absolute Neuts (auto) 2.3 Absolute Nucleated RBC 0.000 Nucleated RBC % 0.0 PT 14.2 INR 1.1 APTT 28.8 Sodium 136 L Potassium 3.8 Chloride 105 Carbon Dioxide 25 Anion Gap 6 BUN 14 Creatinine 0.70 Estim Creat Clear Calc 55 Estimated GFR > 60 Glucose 125 H POC Capillary Glucose 124 H Calcium 8.4 Phosphorus 3.2 Magnesium 1.8 Total Bilirubin 0.5 AST 24 ALT 18 Alkaline Phosphatase 82 Troponin I < 0.012 Total Protein 7.0 Albumin 3.8 Lipase 42 TSH (Reflex) 1.330 Urine Color Yellow Urine Appearance Clear Urine pH 5.0 Ur Specific Pride 1.025 Urine Protein Trace Urine Glucose (UA) Negative Urine Ketones Negative Ur Blood (Man) Negative Urine Nitrate Negative Urine Bilirubin Negative Urine Urobilinogen 0.2 Leukocyte Esterase Rfl Negative Urine RBC 0-2 Urine WBC 0-5 Ur Squamous Epith Cells None seen Urine Bacteria None seen Urine Casts 0-2 Urine Mucus Present Influenza A (RT-PCR) Negative Influenza B (RT-PCR) Negative RSV (RT-PCR) Negative SARS-CoV-2 RNA (RT-PCR) Positive A 09/20/24 09/21/24 14:51 05:59 WBC 3.3 L RBC 4.29 Hgb 14.0 Hct 39.5 MCV 92.1 MCH 32.6 MCHC 35.4 RDW 13.2 Plt Count 175 MPV 10.8 H Immature Gran % (Auto) 0.3 Neut % (Auto) 62.3 Lymph % (Auto) 32.2 [place] % (Auto) 5.2 Eos % (Auto) 0.0 Baso % (Auto) 0.0 L Lymph # (Auto) 1.05 [place] # (Auto) 0.2 Eos # (Auto) 0.0 Baso # (Auto) 0.0 Abs Immat Gran (auto) 0.01 Absolute Neuts (auto) 2.0 Absolute Nucleated RBC 0.000 Nucleated RBC % 0.0 PT INR APTT Sodium 139 Potassium 4.2 Chloride 109 H Carbon Dioxide 24 Anion Gap 6 BUN 13 Creatinine 0.70 Estim Creat Clear Calc 55 Estimated GFR > 60 Glucose 137 H POC Capillary Glucose Calcium 8.4 Phosphorus Magnesium Total Bilirubin 0.5 AST 26 ALT 19 Alkaline Phosphatase 80 Troponin I < 0.012 Total Protein 7.0 Albumin 3.7 Lipase TSH (Reflex) Urine Color Urine Appearance Urine pH Ur Specific Pride Urine Protein Urine Glucose (UA) Urine Ketones Ur Blood (Man) Urine Nitrate Urine Bilirubin Urine Urobilinogen Leukocyte Esterase Rfl Urine RBC Urine WBC Ur Squamous Epith Cells Urine Bacteria Urine Casts Urine Mucus Influenza A (RT-PCR) Influenza B (RT-PCR) RSV (RT-PCR) SARS-CoV-2 RNA (RT-PCR) Quality VTE Prophylaxis VTE prophylaxis: pharmacologic ordered
[2024-09-21] MEDS: dexAMETHasone SOD PHOS INJ 10 MG/ML 1 ML VIAL 6 MG IV PUSH (15:41)
[2024-09-21] MEDS: REMDESIVIR 100 MG/NS 250 ML 100 MG/250 ML BAG 250 MG IVPB (22:24)
[2024-09-22 04:40] VITALS: BP 141/67; PULSE 64; RESP 20; TEMP 36.5; O2SAT 94
[2024-09-22 06:21] LABS: Hematocrit 39.3 % (37.0-47.0); Hemoglobin 13.6 g/dL (12.0-15.0); Immature Granulocyte Absolute 0.03 K/mm3 (0.00-0.031); Immature Granulocyte Percent A 0.6 % (0-0.5); Lymphocytes Absolute Auto 1.51 K/mm3 (0.9-3.2); Lymphocytes Percent Auto 27.9 % (18.3-44.2); Mean Corpuscular HGB Conc 34.6 g/dl (32-36); Mean Corpuscular Volume 92.5 fl (80-100); Monocytes Absolute Auto 0.4 K/mm3 (0.1-0.6); Monocytes Percent Auto 6.6 % (2.6-8.5); Neutrophils Absolute Auto 3.5 K/mm3 (1.3-6.7); Neutrophils Percent Auto 64.9 % (45.5-73.1); Platelet Count Result 189 k/mm3 (150-375); Red Blood Count 4.25 M/mm3 (4.2-5.4); Red Cell Distribution Width 13.3 % (11.5-14.5); White Blood Count 5.4 K/mm3 (4.5-10.0)
[2024-09-22 06:29] LABS: INR 1.1; Prothrombin Time 14.6 Seconds (11.1-14.7)
[2024-09-22 06:34] LABS: Alanine Aminotransferase 19 U/L (6-35); Albumin Level 3.6 g/dL (3.5-5.1); Alkaline Phosphatase 81 U/L (38-126); Anion Gap 4 mmol/L (4-12); Aspartate Amino Transferase 30 U/L (14-36); Bilirubin,Total 0.4 mg/dL (0.2-1.3); Blood Urea Nitrogen 23 mg/dL (7-17); Calcium 8.4 mg/dL (8.4-10.2); Carbon Dioxide 25 mmol/L (22-30); Chloride 110 mmol/L (98-107); Estimated CRCL calculation 43 ml/min; Estimated Glomerular Filt Rate 60; Glucose 135 mg/dL (65-110); Sodium 139 mmol/L (137-145)
[2024-09-22] MEDS: ESCITALOPRAM OXALATE 5 MG TABLET PO (09:59)
[2024-09-22] MEDS: DICLOFENAC SOD 75 MG TABLET.EC PO (10:00)
[2024-09-22] MEDS: ENOXAPARIN 40 MG/0.4 ML SYRINGE SUB-Q (10:00)
[2024-09-22] MEDS: CHOLECALCIFEROL 1,000 UNITS TABLET 2000 UNITS PO (10:00)
[2024-09-22 10:20] VITALS: PULSE 70; O2SAT 96
[2024-09-22 10:25] VITALS: PULSE 89; O2SAT 93
[2024-09-22 10:35] VITALS: PULSE 76; O2SAT 96
--- NOTE | 2024-09-22 10:53 | HOMEO2EVAL ---
Evaluation was performed at [facility] Home Oxygen Evaluation RC: Home Oxygen (O2) Evaluation Start: 09/22/24 08:11 Freq: ONCE Status: Active Protocol: RPE Activity Type Activity Date Activity User E-sign Co-sign Detail Recorded Client Recorded Date Recorded By Document 09/22/24 10:20 SERGIO [id number] 09/22/24 10:53 SERGIO Document 09/22/24 10:25 SERGIO [id number] 09/22/24 10:53 SERGIO Document 09/22/24 10:35 SEGRIO [id number] 09/22/24 10:53 SERGIO 09/22/24 09/22/24 09/22/24 10:20 10:25 10:35 Home O2 Evaluation [Oxygen] -Test Phase Resting Exercise Resting -Oxygen Delivery Room Air Room Air Room Air [Pulse Oximetry] -Pulse Oximetry (90-100 %) 96 93 96 [Pulse Rate] -Pulse Rate (60-100 beats/min) 70 89 76 [Comments] -Home Oxygen Evaluation Comments No home O2 needed at this time. [Charges] -Evaluation Charges O2 Evaluation by Pulmonary
--- NOTE | 2024-09-22 10:54 | PCRCNOTE ---
Home O2 eval done, No home O2 needed at this time.
--- NOTE | 2024-09-22 13:51 | P.DS_ITS ---
DS: Admitting Diagnosis Discharge Date 09/22 Admitting Diagnosis confusion DS: Discharge Diagnosis Discharge Diagnosis (1) Confusion: Code(s): R41.0 - Disorientation, unspecified Status: Acute (2) Hypoxic respiratory failure: Qualifiers: Chronicity: acute Qualified Code(s): J96.01 - Acute respiratory failure with hypoxia Code(s): J96.91 - Respiratory failure, unspecified with hypoxia Status: Acute (3) COVID: Code(s): U07.1 - COVID-19 Status: Acute (4) Anxiety: Code(s): F41.9 - Anxiety disorder, unspecified Status: Acute DS: Summary Hospital Course Hospital Course: Narrative retrieved from H/P: This is an 79-year-old female a significant past medical history of anxiety, colon cancer, arthritis, hernia repair who presented to the hospital for further evaluation of confusion. Patient denies any fever, chills, nausea, vomiting, diarrhea, abdominal pain, chest pain, shortness a breath. Workup in the hospital included a head CT which was negative for any intracranial hemorrhage, mass, or acute infarct, showed atrophy and chronic white matter changes. Chest x-ray was negative. Initial labs showed a white blood cell count of 3.9, sodium 136, troponin was negative, TSH 1.330, otherwise unremarkable. UA was obtained and was negative. Respiratory panel negative for influenza a and B, RSV. She is COVID positive. Plan was to discharge her home from the ER however when they did a home O2 eval on her she desaturated down to 85% on room air. She is being admitted in this setting for further treatment of her symptoms. Overnight we were able to wean her of oxygen. She is comfortable on room air this am. Respiratory did an evaluation for home o2 and she did well- no oxygen requirements at home. She improved enough to be discharged home with a close f/u with her pcp. she is to finish her steroids, continue to do her IS, cough/deep breathing exercises. Her mental state improved as well. Status at Discharge Functional status at discharge: independent ambulation Overall status at discharge: patient is progressing back to baseline Time Spent with Patient Time attestation: Total time spent providing and/or coordinating discharge services: Time spent: Greater than 30 minutes Exam Narrative: General: In no acute distress, well nourished Head: atraumatic, no encephalopathy Eyes: EOMI, PERRLA, sclera clear ENT: moist mucous membranes, nasal passages clear Neck: supple, no JVD, no adenopathy, trachea midline Cardiac: Normal S1 and S2. No murmur, gallops or friction rubs, peripheral pulses intact. Respiratory: Lungs clear to auscultation, no adventitious lung sounds, dry cough, on room air Gastrointestinal: soft, non-distended, non-tender, normoactive bowel sounds. : voiding without difficulty. Extremities: moves all extremities well, no edema Skin: clean, dry, intact. No wounds or lesions. Neuro: Alert and oriented to self, place, still confused with time but easily re orients- she was intermittently confused before due to her chronic disease, cranial nerves intact, no neuro deficits. Psych: normal mood, normal affect, interactive, pleasant Const: General: comfortable DS: Data Data Completed and Pending Labs on day of discharge: Labs from last 24 hours 09/22/24 05:42 WBC 5.4 RBC 4.25 Hgb 13.6 Hct 39.3 MCV 92.5 MCH 32.0 MCHC 34.6 RDW 13.3 Plt Count 189 MPV 11.0 H Immature Gran % (Auto) 0.6 H Neut % (Auto) 64.9 Lymph % (Auto) 27.9 [place] % (Auto) 6.6 Eos % (Auto) 0.0 Baso % (Auto) 0.0 L Lymph # (Auto) 1.51 [place] # (Auto) 0.4 Eos # (Auto) 0.0 Baso # (Auto) 0.0 Abs Immat Gran (auto) 0.03 Absolute Neuts (auto) 3.5 Absolute Nucleated RBC 0.000 Nucleated RBC % 0.0 PT 14.6 INR 1.1 Sodium 139 Potassium 4.0 Chloride 110 H Carbon Dioxide 25 Anion Gap 4 BUN 23 H D Creatinine 0.90 Estim Creat Clear Calc 43 Estimated GFR 60 Glucose 135 H Calcium 8.4 Total Bilirubin 0.4 Direct Bilirubin 0.0 AST 30 ALT 19 Alkaline Phosphatase 81 Total Protein 7.0 Albumin 3.6 Discharge Plan Discharge Attending physician on discharge: Mike Rushing Discharging Clinician: Lamar Perkins Patient Disposition: Home Health Service Activity: may shower Diet: as tolerated and heart healthy Discharge Instructions: Please take your steroids for 3 more doses If your symptoms return or worsen, please reach out to pcp/or come back to ED. Per Care Coordination. [phone]. RN please fax discharge instructions to: [phone] Patient Instructions: Antibiotic Form Stand Alone Forms: General Discharge Information Follow-up/Referrals: Shonda,Blaire Koenig, MENTAL RETARDATION NURSE [Primary Care Provider] - 1 Week Discharge Medications: New ondansetron 4 mg tablet,disintegrating 4 mg PO DAILY PRN (Reason: nausea and vomiting) 5 Days Qty: 14 0RF prednisolone 5 mg tablet 40 mg PO QAM Qty: 3 0RF Continued escitalopram oxalate 5 mg tablet 5 mg PO DAILY diclofenac sodium 75 mg tablet,delayed release (DR/EC) 75 mg PO DAILY Vitamin D3 2,000 units PO DAILY donepezil 5 mg tablet 5 mg PO HS triamcinolone acetonide 0.1 % cream See Rx Instructions .ROUTE .COMPLEX Rx Instructions: Apply thin layer to skin fold maceration/rash prn nystatin 100,000 unit/gram cream See Rx Instructions .ROUTE .COMPLEX Rx Instructions: Apply thin layer to skin fold maceration/rash prn Date of admission: 09/21/24 10:06 Primary Care Provider: Shonda,Blaire Koenig Admitting Provider: Mike Rushing Attending physician on admission: Mike Rushing Condition: Stable Quality VTE Prophylaxis VTE prophylaxis: pharmacologic ordered Hospitalist MIPS Heart Failure (Exclusion) Patient has history of Heart Transplant or Left Ventricular Assistive Device?: No IF YES, STOP HERE Heart Failure (Qualifier) Patient has current or prior documentation of LVEF less than or equal to 40%, or mod/servere depressed LVSF?: No IF NO, STOP HERE
[2024-09-22 14:00] VITALS: BP 150/58; PULSE 59; RESP 16; TEMP 36.1; O2SAT 97
== END 2024-09-22 15:33 | disposition home health service (06) | DRG 179 ==
LOC: ANHED 14:11 → ANH2MED 15:34
PROVIDERS: Nurse Practitioner Acute Care; Admitting Provider Internal Medicine; Emergency Provider Emergency Medicine; PCP Nurse Practitioner Family; Visit Provider Nurse Practitioner
DX: U07.1 COVID-19 (principal); R41.0 Disorientation, unspecified; M19.90 Unspecified osteoarthritis, unspecified site; F41.9 Anxiety disorder, unspecified; Z85.038 Personal history of other malignant neoplasm of large intestine
CPT/HCPCS: 36415; 70450; 71045; 80048; 80053; 80076; 81001; 82948; 83690; 83735; 84100; 84443; 84484; 85025; 85610; 85730; 87637; 93005; 94618; 96361; 96372; 96374; 96375; 97161; 97165; 99285; A9270; G0378; J0248; J1100; J1650; J2405; J7030

== ENCOUNTER 2024-10-27 17:00 | Emergency (ER) | payer MEDICARE, SELFPAY ==
[2024-10-27 17:44] VITALS: BP 131/71; PULSE 84; RESP 18; TEMP 36.7; O2SAT 99
--- OUTSIDE RECORDS SUMMARY | 2024-11-04 02:23 | XMS_ITS | Data Portability ---
[facility] [address] [place] [address] Care Team Providers Care Wholesale Buyer Name Role Phone SHEILA SALAZAR Primary Care Provider Assessment Encounter Date Assessment Date Assessment LastModified by Organization Details LastModified Time 07/19/2024 07/19/2024 Obtain complete old records. They have an appointment with a neurologist coming up they will keep that healthy lifestyle care instructions will be handed out. Flu shot today continue Lexapro for now diclofenac use sparingly see me back in 3 months await Neurology opinion recommend she get her respiratory immunizations she is getting flu today COVID when they can we do not have any in the clinic and RSV we will have to be at pharmacy. Tdap also recommended she had a reaction to pneumococcal vaccination so they do not want that Not available 07/23/2024 11:41:51 Plan of Treatment Reminders Order Date Submit Date Provider Last Modified By Organization Details Last Modified Time Details Appointments ANY 15 2024 10:30A M Sheila Salazar MD Not available Not available Not available Lab TSH, ultra-sen sitive, serum 2023 024 [facility], [address], [place], [address], 07/20/2024 08:32:16 vitamin B12 + folate, serum or blood 2023 024 [facility], [address], [place], [address], 07/20/2024 08:32:15 CBC w/ auto diff 2023 024 [facility], [address], [place], [address], 07/20/2024 08:32:17 T3, free, serum or plasma 2023 024 [facility] [address], [place], [address], 07/20/2024 08:32:18 unlisted lab - T4, free 2023 024 [facility] [address], [place], [address], 07/20/2024 08:32:14 RPR (rapid plasma reagin), serum 2023 024 [facility], [address], [place], [address], 07/20/2024 08:32:17 lipid panel, serum 2023 024 [facility], [address], [place], [address], 07/20/2024 08:32:13 CMP, serum or plasma 2023 024 [facility], [address], [place], [address], 07/20/2024 08:32:14 Referral None recorded. Procedures None recorded. Surgeries None recorded. Imaging None recorded. Medication Orders None recorded. Patient TargetsNo targets recorded. Patient Instructions Encounter Date Encounter Id Patient Instructions Last Modified By Organization Details Last Modified Time 07/19/2024 [id number] A healthy lifestyle: care instructions [email or web address] Not available 07/19/2024 17:46:14 Reason for Referral None Reported. Results Created Date Observation Date Name Description Value Unit Range Abnormal Flag Note LastModifiedBy Organization Detail LastModifiedTime 07/19/20 24 07/20/2024 LIPID PANEL cholesterol, total 194 mg/dL 100-19 9 Not Available [facility] ([facility]) [address] [place], [address], 07/20/2024 08:32:13 07/19/20 24 07/20/2024 LIPID PANEL triglyceride s 164 mg/dL 0-149 above high normal Not Available [facility] ([facility]) [address] [place], [address], 07/20/2024 08:32:13 07/19/20 24 07/20/2024 LIPID PANEL HDL cholesterol 55 mg/dL >39 Not Available [facility] ([facility]) [address] [place], [address], 07/20/2024 08:32:13 07/19/20 24 07/20/2024 LIPID PANEL VLDL cholesterol lydia 29 mg/dL 5-40 Not Available [facility] ([facility]) [address] [place], [address], 07/20/2024 08:32:13 07/19/20 24 07/20/2024 LIPID PANEL LDL chol calc ([facility] [place]) 110 mg/dL 0-99 above high normal Not Available [facility] ([facility]) [address] [place], [address], 07/20/2024 08:32:13 07/19/20 24 07/20/2024 T4, FREE T4,free([facility] ct) 0.95 NG/dL 0.82-1 .77 Not Available [facility] ([facility]) [address] [place], [address], 07/20/2024 08:32:14 07/19/20 24 07/20/2024 COMP. METAB OLIC PANEL (14) glucose 111 mg/dL 70-99 above high normal Not Available [facility] ([facility]) [address] [place], [address], 07/20/2024 08:32:14 07/19/20 24 07/20/2024 COMP. METAB OLIC PANEL (14) BUN 18 mg/dL 8-27 Not Available [facility] ([facility]) [address] [place], [address], 07/20/2024 08:32:14 07/19/20 24 07/20/2024 COMP. METAB OLIC PANEL (14) creatinine 0.89 mg/dL 0.57-1 .00 Not Available [facility] ([facility]) [address] [place], [address], 07/20/2024 08:32:14 07/19/20 24 07/20/2024 COMP. METAB OLIC PANEL (14) eGFR 65 mL/mi n/1.7 3 >59 Not Available [facility] ([facility]) [address] [facility], [place], [address], 07/20/2024 08:32:14 07/19/20 24 07/20/2024 COMP. METAB OLIC PANEL (14) BUN/creatini ne ratio 20 12-28 Not Available [facility] ([facility]) [address] [facility] [address], [place], [address], 07/20/2024 08:32:14 07/19/20 24 07/20/2024 COMP. METAB OLIC PANEL (14) sodium 140 mmol/ L 134-14 4 Not Available [facility] ([facility]) [address] [place], [address], 07/20/2024 08:32:14 07/19/20 24 07/20/2024 COMP. METAB OLIC PANEL (14) potassium 4.2 mmol/ L 3.5-5. 2 Not Available [facility] ([facility]) [address] [place], [address], 07/20/2024 08:32:14 07/19/20 24 07/20/2024 COMP. METAB OLIC PANEL (14) chloride 102 mmol/ L 96-106 Not Available [facility] ([facility]) [address] [facility], [place], [address], 07/20/2024 08:32:14 07/19/20 24 07/20/2024 COMP. METAB OLIC PANEL (14) carbon dioxide, total 21 mmol/ L 20- Not Available [facility] ([facility]) [address] [place], [address], 07/20/2024 08:32:14 07/19/20 24 07/20/2024 COMP. METAB OLIC PANEL (14) calcium 9.8 mg/dL 8.7-10 .3 Not Available [facility] ([facility]) [address] [place], [address], 07/20/2024 08:32:14 07/19/20 24 07/20/2024 COMP. METAB OLIC PANEL (14) protein, total 6.8 g/dL 6.0-8. 5 Not Available [facility] ([facility]) [address] [place], [address], 07/20/2024 08:32:14 07/19/20 24 07/20/2024 COMP. METAB OLIC PANEL (14) albumin 4.4 g/dL 3.8-4. 8 Not Available [facility] ([facility]) [address] [place], [address], 07/20/2024 08:32:14 07/19/20 24 07/20/2024 COMP. METAB OLIC PANEL (14) globulin, total 2.4 g/dL 1.5-4. 5 Not Available [facility] ([facility]) [address] [place], [address], 07/20/2024 08:32:14 07/19/20 24 07/20/2024 COMP. METAB OLIC PANEL (14) bilirubin, total 0.6 mg/dL 0.0-1. 2 Not Available [facility] ([facility]) [address] [facility] [place], [address], 07/20/2024 08:32:14 07/19/20 24 07/20/2024 COMP. METAB OLIC PANEL (14) alkaline phosphatase 111 IU/L 44-121 Not Available [facility] ([facility]) [address] [place], [address], 07/20/2024 08:32:14 07/19/20 24 07/20/2024 COMP. METAB OLIC PANEL (14) AST (SGOT) 15 IU/L 0-40 Not Available [facility] ([facility]) [address] [place], [address], 07/20/2024 08:32:14 07/19/20 24 07/20/2024 COMP. METAB OLIC PANEL (14) ALT (SGPT) 10 IU/L 0-32 Not Available [facility] ([facility]) [address] [place], [address], 07/20/2024 08:32:14 07/19/20 24 07/20/2024 VITAM IN B12 AND FOLAT E vitamin B12 769 pg/mL 232-12 45 Not Available [facility] ([facility]) [address] [place], [address], 07/20/2024 08:32:15 07/19/20 24 07/20/2024 VITAM IN B12 AND FOLAT E folate (folic acid), serum 8.5 NG/mL >3.0 A serum folat e polo ntrat ion of less than 3.1 ng/mL is consi dered to repre sent clini ldyia defic iency . Not Available [facility] ([facility]) [address] [place], [address], 07/20/2024 08:32:15 07/19/20 24 07/20/2024 TSH TSH 3.460 uIU/m L 0.450- 4.500 Not Available [facility] ([facility]) [address] [place], [address], 07/20/2024 08:32:16 07/19/20 24 07/20/2024 CBC WITH DIFFE RENTI AL/PL ATELE T WBC 9.8 x10e3 /uL 3.4-10 .8 Not Available [facility] ([facility]) [address] [facility], [place], [address], 07/20/2024 08:32:16 07/19/20 24 07/20/2024 CBC WITH DIFFE RENTI AL/PL ATELE T RBC 4.67 x10e6 /uL 3.77-5 .28 Not Available [facility] ([facility]) [address] [facility], [place], [address], 07/20/2024 08:32:16 07/19/20 24 07/20/2024 CBC WITH DIFFE RENTI AL/PL ATELE T hemoglobin 14.7 g/dL 11.1-1 5.9 Not Available [facility] ([facility]) [address] [facility], [place], [address], 07/20/2024 08:32:16 07/19/20 24 07/20/2024 CBC WITH DIFFE RENTI AL/PL ATELE T hematocrit 43.9 % 34.0-4 6.6 Not Available [facility] ([facility]) [address] [facility], [place], [address], 07/20/2024 08:32:16 07/19/20 24 07/20/2024 CBC WITH DIFFE RENTI AL/PL ATELE T MCV 94 fL 79-97 Not Available [facility] ([facility]) [address] [place], [address], 07/20/2024 08:32:16 07/19/20 24 07/20/2024 CBC WITH DIFFE RENTI AL/PL ATELE T MCH 31.5 pg 26.6-3 3.0 Not Available [facility] ([facility]) [address] [place], [address], 07/20/2024 08:32:16 07/19/20 24 07/20/2024 CBC WITH DIFFE RENTI AL/PL ATELE T MCHC 33.5 g/dL 31.5-3 5.7 Not Available [facility] ([facility]) [address] [facility], [place], [address], 07/20/2024 08:32:16 07/19/20 24 07/20/2024 CBC WITH DIFFE RENTI AL/PL ATELE T RDW 12.9 % 11.7-1 5.4 Not Available [facility] ([facility]) [address] [facility], [place], [address], 07/20/2024 08:32:16 07/19/20 24 07/20/2024 CBC WITH DIFFE RENTI AL/PL ATELE T platelets 202 x10e3 /uL 150-45 0 Not Available [facility] ([facility]) [address] [facility], [place], [address], 07/20/2024 08:32:16 07/19/20 24 07/20/2024 CBC WITH DIFFE RENTI AL/PL ATELE T neutrophils 53 % notest ab. Not Available [facility] ([facility]) [address] [facility], [place], [address], 07/20/2024 08:32:16 07/19/20 24 07/20/2024 CBC WITH DIFFE RENTI AL/PL ATELE T lymphs 38 % notest ab. Not Available [facility] ([facility]) [address] [facility], [place], [address], 07/20/2024 08:32:16 07/19/20 24 07/20/2024 CBC WITH DIFFE RENTI AL/PL ATELE T monocytes 6 % notest ab. Not Available [facility] ([facility]) [address] [facility], [place], [address], 07/20/2024 08:32:16 07/19/20 24 07/20/2024 CBC WITH DIFFE RENTI AL/PL ATELE T eos 2 % notest ab. Not Available [facility] ([facility]) [address] [place], [address], 07/20/2024 08:32:16 07/19/20 24 07/20/2024 CBC WITH DIFFE RENTI AL/PL ATELE T basos 1 % notest ab. Not Available [facility] ([facility]) [address] [place], [address], 07/20/2024 08:32:16 07/19/20 24 07/20/2024 CBC WITH DIFFE RENTI AL/PL ATELE T neutrophils (absolute) 5.2 x10e3 /uL 1.4-7. 0 Not Available [facility] ([facility]) [address] [place], [address], 07/20/2024 08:32:16 07/19/20 24 07/20/2024 CBC WITH DIFFE RENTI AL/PL ATELE T lymphs (absolute) 3.7 x10e3 /uL 0.7-3. 1 above high normal Not Available [facility] ([facility]) [address] [place], [address], 07/20/2024 08:32:16 07/19/20 24 07/20/2024 CBC WITH DIFFE RENTI AL/PL ATELE T monocytes(ab solute) 0.6 x10e3 /uL 0.1-0. 9 Not Available [facility] ([facility]) [address] [place], [address], 07/20/2024 08:32:16 07/19/20 24 07/20/2024 CBC WITH DIFFE RENTI AL/PL ATELE T eos (absolute) 0.2 x10e3 /uL 0.0-0. 4 Not Available [facility] ([facility]) [address] [place], [address], 07/20/2024 08:32:16 07/19/20 24 07/20/2024 CBC WITH DIFFE RENTI AL/PL ATELE T baso (absolute) 0.1 x10e3 /uL 0.0-0. 2 Not Available [facility] ([facility]) [address] [facility], [place], [address], 07/20/2024 08:32:16 07/19/20 24 07/20/2024 CBC WITH DIFFE RENTI AL/PL ATELE T immature granulocytes 0 % notest ab. Not Available [facility] ([facility]) [address] [facility], [place], [address], 07/20/2024 08:32:16 07/19/20 24 07/20/2024 CBC WITH DIFFE RENTI AL/PL ATELE T immature grans (abs) 0.0 x10e3 /uL 0.0-0. 1 Not Available [facility] ([facility]) [address] [facility], [place], [address], 07/20/2024 08:32:16 07/19/20 24 07/20/2024 RPR RPR NON REACTI VE nonrea ctive Not Available [facility] ([facility]) [address] [facility], [place], [address], 07/20/2024 08:32:17 07/19/20 24 07/20/2024 TRIIO DOTHY MICHAEL E (T3), FREE triiodothyro nine (T3), free 2.3 pg/mL 2.0-4. 4 Not Available [facility] ([facility]) [address] [place], [address], 07/20/2024 08:32:18 08/13/20 24 08/13/2024 MRI, brain + brain stem, w/o contr ast No observ ation record ed. [email or web address] [facility] [address] [place], [address], 08/14/2024 15:44:38 Result Notes None recorded. Problems Name Problem SNOMED Code Status Onset Date Resolution Date Notes Provider Name and Address Organization Details Recorded Time Overweight 262656212 Active 2023 Tripp Cutler MA null, [place] - [facility] 4 16:24:51 Memory impairment 663537519 Active 2023 Tripp Cut[place], [place] [facility] 4 16:25:34 Headache 73991653 Active 2023 Tripp Cutler [place], [place] [facility] 4 16:25:35 Administration of influenza vaccine Active 2023 Sheila Salazar MD Attn: Sukhjinder fajardo,[address] [place], [address], [place] [facility] 4 11:40:17 Serum vitamin B12 below reference range 438079952 Active 2023 Sheila Salazar MD Attn: Sukhjinder fajardo,[address] [place], [address], [place] - [facility] 4 11:40:19 Hyperlipidemia 54365404 Active 2023 Sheila Salazar MD Attn: Sukhjinder fajardo,[address] [place], [address], [place] [facility] 4 11:40:20 Osteoarthritis 717995393 Active 2023 Sheila Salazar MD Attn: Sukhjinder fajardo,[address] [place], [address], [place] [facility] 4 11:40:23 Prediabetes 663122566 Active 2023 Sheila Salazar MD Attn: Sukhjinder fajardo,[address] [place], [address], [place] [facility] 4 11:40:24 History of malignant neoplasm of colon 381840722 Active 2023 Sheila Salazar MD Attn: Sukhjinder fajardo,[address] [place], [address], [facility] 4 11:40:25 Anxiety 41946942 Active 2023 Sheila Salazar MD Attn: Sukhjinder fajardo,[address] , [place], [address], [facility] 4 11:40:27 Does use hearing aid 212260431 Active 2023 Sheila Salazar MD Attn: Sukhjinder fajardo,[address] , [place], [address], [facility] 4 11:41:10 Problem Notes None recorded. Procedures Surgical History Date Name Laterality Status Provider Name and Address Organization Details Recorded Time 11/01/19 21 cataract surgery completed Dorothy Tran MA [facility] 07/19/2024 15:54:06 11/01/18 91 Cholecystectomy completed Dorothy Tran MA [facility] 07/19/2024 15:53:38 11/01/18 91 hernia repair completed Dorothy Tran MA [facility] 07/19/2024 15:54:26 Back Surgery completed Dorothy Tran MA [facility] 07/19/2024 15:53:15 Dilation and Curettage completed Dorothy Tran MA [facility] 07/19/2024 15:56:36 Imaging Results Imaging Date Name Status LastModified by Organiz ation Details LastModified Time 08/13/2024 MRI, brain + brain stem, w/o contrast completed [email or web address] [facility] [address], [address], 08/14/2024 15:44:38 Procedure Notes None recorded. Medical Equipment None Reported. Allergies Allergen ID Allergen Name Allergen Category Reaction Reaction Severity Criticality Documentation Date Start Date Code Code System Note Provider Name and Address Organization Details Recorded Time 733785 Pneumococ lydia vaccine Not available Not available Not available Not available 07/19/2024 58146 7 RxNorm TEMO Adams, [facility] 4 15:40:13 Medications Name Sig Start Date Stop Date Status Note LastModified by Organization Details LastModified Time doxycycline hyclate 100 mg capsule TAKE 1 CAPSULE BY MOUTH TWICE DAILY FOR 7 DAYS 07/19 completed Not Available Not Available Not Available prednisone 20 mg tablet TAKE 3 TABLETS BY MOUTH DAILY FOR 3 DAYS,THEN TAKE 2 TABS DAILY FOR 3 DAYS ,THEN TAKE 1 TABLET DAILY FOR 3 DAYS,THEN TAKE 1/2 TABLET DAILY FOR 3 DAYS. 07/19 completed Not Available Not Available Not Available triamcinolo ne acetonide 0.1 % topical cream APPLY A THIN LAYER TOPICALLY TO THE AFFECTED AREA(S) TWICE DAILY NEEDED FOR RASH 07/19 completed Not Available Not Available Not Available lorazepam 0.5 mg tablet TAKE 1 TABLET BY MOUTH 30 MINUTES PRIOR TO MRI. MAY REPEAT 1 TIME. active Not Available Not Available No t Available nystatin 100,000 unit/gram topical cream APPLY TOPICALLY TO THE AFFECTED AREA(S) TWICE DAILY NEEDED 07/19 completed Not Available Not Available Not Available diclofenac sodium 75 mg tablet,maria elena yed release TAKE 1 TABLET BY MOUTH TWICE DAILY active Not Available Not Available No t Available methylpredn isolone 4 mg tablets in a dose pack 07/19 completed Not Available Not Available Not Available amoxicillin 875 mg-potassiu m clavulanate 125 mg tablet 07/19 completed Not Available Not Available Not Available escitalopra m 5 mg tablet TAKE 1 TABLET BY MOUTH ONCE DAILY active Not Available Not Available No t Available Vitals Date Recorded Body height Body mass index (BMI) Body weight Heart rate Oxygen saturation Oxygen saturation in Arterial blood by Pulse oximetry Systolic blood pressure Diastolic blood pressure Provider Name and Address Organization Details Last Updated DateTime 4 162.56 cm 33 kg/m2 22003.7 4 g 78 /min 98 % 98 % 128 mm[Hg] 78 mm[Hg] Dorothy Tran MA [facility] 4 15:39:50 Social History Question Answer Notes LastModified by Organizat ion Details LastModified Time Tobacco Smoking Status Never Smoker Dorothy Tran MA null, [facility] 07/19/2024 15:42:35 Do You Have An Advance Directive? No Information not available 07/19/2024 What Is Your Level Of Alcohol Consumption? None Information not available 07/19/2024 Are You Blind Or Do You Have Difficulty Seeing? No Information not available 07/19/2024 What Is Your Level Of Caffeine Consumption? Moderate Information not available 07/19/2024 In The 14 Days Before Symptom Onset, Have You Had Close Contact With A Laboratory-confir med COVID-19 While That Case Was Ill? No Information not available 07/19/2024 In The 14 Days Before Symptom Onset, Have You Had Close Contact With A Person Who Is Under Investigation For COVID-19 While That Person Was Ill? No Information not available 07/19/2024 Have You Been To An Area Known To Be High Risk For COVID-19? No Information not available 07/19/2024 Are You Currently Employed? No Information not available 07/19/2024 Are You Deaf Or Do You Have Serious Difficulty Hearing? No Information not available 07/19/2024 What Type Of Diet Are You Following? REGULAR Information not available 07/19/2024 Are There Any Guns Present In Your Home? No Information not available 07/19/2024 What Was The Date Of Your Most Recent Tobacco Screening? 07/19/2024 Never Smoked Information not available 07/19/2024 What Is Your Relationship Status? Information not available 07/19/2024 Do You Use Your Seat Belt Or Car Seat Routinely? Yes Information not available 07/19/2024 Do You Have Smoke And Carbon Monoxide Detectors In Your Home? Yes Information not available 07/19/2024 Do You Feel Stressed (tense, Restless, Nervous, Or Anxious, Or Unable To Sleep At Night)? [id number] Information not available 07/19/2024 Do You Use Any Illicit Or Recreational Drugs? No Information not available 07/19/2024 Do You Use Sunscreen Routinely? Yes Information not available 07/19/2024 Do You Or Have You Ever Used Any Other Forms Of Tobacco Or Nicotine? No Information not available 07/19/2024 Sex: Female Functional Status Question Answer Note LastModified by Organization D etails LastModified Time Are you able to care for yourself? Yes Information n ot available 07/19/2024 Mental Status None recorded. Family History Relationship Description Onset Age of this Age Resolved Age Notes LastModified by Organization Details LastModified Time Brother Family history of cancer of colon gwardma Not available 2023 15:47:34 Brother Hypertensive disorder gwardma Not available 2023 15:48:57 Mother Family history of cancer of colon gwardma Not available 2023 15:47:40 Mother Hypertensive disorder gwardma Not available 2023 15:48:57 Mother Osteoporosis gwardma Not availa ble 07/19/2024 15:49:13 Father Diabetes mellitus gwardma Not available 2023 15:48:02 Father Heart disease gwardma Not available 2023 15:48:16 Father Hypertensive disorder gwardma Not available 2023 15:48:57 Medical History Condition Response Coronary Artery Disease N Other N Atrial Fibrillation N High Blood Pressure N Thyroid Problems N Kidney or Bladder Problems N GI Problems N Depression N COPD N Blood Clots N Have you had a mammogram in the last yea r? Y Skin Problems N Anemia N Heart Attack ([place]) N Diabetes N Anxiety Disorder Y Muscle, Joint, or Bone Problems N Seizures/Epilepsy N Have you had a colonoscopy in the last 1 0 years? Y Acid Reflux (GERD) Y Cancer Y Stroke N Asthma N Allergies N High Cholesterol N Hepatitis N Liver Disease N Headaches N Osteoporosis N Heart Failure N Gynecological History Statement/Question Response If Post Menopausal, Age at Menopause 58 Obstetrics History GPAL:G 1 P 1 0 0 1 Type Value Full Term 1 Living 1 Total 1 Immunizations Vaccine Type Date Status Note Provider Nam e and Address Organization Details Recorded Time Influenza, high-dose, trivalent, PF 07/19/2024 completed Sheila Salazar MD Attn: [address] [place], [address], [facility] 07/23/2024 11:31:07 Past Encounters Encounter ID Performer Location Encounter Start Date Encounter Closed Date Diagnosis/Indication Diagnosis SNOMED-CT Code Diagnosis ICD10 Code [id number] Sheila Salazar MD [facility] ([facility]ult [facility]) [address] [place] [address] 07/19/2024 14:59:18 07/19/2024 16:36:25 Overweight 043987952 E66.3 Memory impairment 954993 006 R41.3 Headache 96349650 R51.9 Screening for cardiovascular system disease 520902072 Z13.6 Administra tion of influenza vaccine 87585894 Z23 Serum josy min B12 below reference range 760757608 R79.89 Hyperlipidemia 36100610 E78.5 Osteoarthritis 178780623 M19.90 Prediabetes 861564469 R7 3.03 History of malignant neoplasm of colon 745286671 Z85.038 Anxiety 61227064 F41.9 Does use hearing aid 285 798957 Z97.4 Health Concerns Section Related Observation LastModified by Organization Detai ls LastModified Time None Recorded Concern Status LastModified by Organization Details LastModified Time None Recorded Advance Directives Directive N: Payers None recorded. Notes Date Note Type Note Provider Name and Address Organization Details Recorded Time 07/19/2024 text/html brought in by he r daughter new patient appointment her previous PCP has left the area past medical history of low B12 level dementia hyperlipidemia questionable antiphospholipid syndrome osteoarthritis prediabetes with last A1c 5.9 in 1223 history of increased LFTs history of colon cancer resected in 1990 they think last colonoscopy 2016 with recommendations to repeat in 5 years. Anxietyhad a rash to the pneumonia shot of moderate severity. Surgically colon cancer resected [address] Haynes. Cholecystectomy. Hernia repair. Family history mother colon cancer. Father diabetes hypertension and heart disease. does not smoke or drink supportive family immunizations they are not sure of would like a flu shot today Sheila Salazar MD Attn: [address] [place], [address], [facility] 07/23/2024 11:42:10 OBGyn Episode No OBEpisode recorded.
--- OUTSIDE RECORDS SUMMARY | 2024-11-04 02:23 | XMS_ITS | Data Portability ---
Author Organization [place] - [facility] [email or web address], Main Office Address [address] [place] [address] Assessment Encounter Date Assessment Date Assessment LastModified by Organization Details LastModified Time 01/26/2023 01/26/2023 C-scope- ordered- Manning WWE- no longer doing 2/2 age Mammogram- 01/2022, ordered DEXA- 09/2020- normal WEA-01/26/23 Call office if worse, ER if life threatening illness RTC 4 months She voices understanding of plan and agrees [email or web address] Not available 01/26/2023 13:25:09 06/01/2023 06/01/2023 C-scope- ordered- Manning WWE- no longer doing 2/2 age Mammogram- 01/2023 DEXA- 09/2020- normal WEA-01/26/23 Call office if worse, ER if life threatening illness RTC 4 months She voices understanding of plan and agrees [email or web address] Not available 06/01/2023 15:05:34 01/21/2024 01/21/2024 I have reconciled the patient's medications post their discharge from inpatient facility. Not available 01/21/2024 08:28:50 Plan of Treatment Reminders Order Date Submit Date Provider Last Modified By Organization Details Last Modified Time Details Appointments None recorded. Lab vitamin D, 25-hydroxy, total, serum 2022 023 [email or web address] [facility], [address] [place], [address], 15:09:40 HbA1c (hemoglobin A1c), blood 2022 023 [email or web address] [facility], [address] [place], [address], 3 15:09:40 CBC w/ auto diff 2022 023 [facility], [address] [place], [address], 3 16:14:02 CMP, serum or plasma 2022 023 [facility], [address] [place], [address], 3 16:27:51 lipid panel, serum 2022 023 [facility], [address] [place], [address], 3 16:27:54 TSH, serum, reflex free T4 [address] [facility], [address] [place], [address], 3 15:09:40 vitamin B12, serum 2022 023 [email or web address] Not available 3 16:40:20 TSH, serum or plasma 2022 023 [email or web address] Not available 3 16:40:35 HbA1c (hemoglobin A1c), blood 2022 023 [email or web address] Not available 3 16:39:04 BMP, serum or plasma 2022 023 [email or web address] Not available 3 16:40:02 hepatic function panel, serum 2022 023 [email or web address] Not available 3 16:41:06 vitamin B12, serum 2023 024 Not available 4 13:22:43 folate, serum 2023 024 Not available 4 13:23:10 CBC w/ auto diff 2023 024 Not available 4 13:23:27 Referral gynecologis t referral 2022 023 [email or web address] [facility], [address], [place], [address], 3 16:26:39 neurologist referral - Please call patient daughter Kristen to schedule appointment at [facility]-[phone]. 2022 023 [email or web address] [facility], [address] [facility], [place], [address], 4 14:01:11 Procedures colonoscopy screening (PROC) 2022 023 [email or web address] Manning MD, [address], [address], [place], [address], 3 14:51:21 colonoscopy screening (PROC) 2022 023 [email or web address] Combs MD, [address] [facility], [facility] [address], [place], [address], 3 12:37:48 Surgeries None recorded. Imaging MAMMO, screening, bilateral - due 01/2023 023 [email or web address] [facility] ([facility]), [address] [place], [address], 3 09:55:09 MAMMO, screening, digital, bilateral - *Please call pt to schedule* 2023 024 [email or web address] 256 [facility] ([facility]), [address] [place], [address], 4 16:52:36 XR, chest, 2 view 2023 024 [facility] ([facility]), [address] [facility], [place], [address], 4 17:52:19 Medication Orders escitalopra m 5 mg tablet [address] [facility] [address] [facility], [address] [place] [address], [address], 3 13:18:18 nystatin 100,000 unit/gram topical cream 2022 023 [facility], [address] [place] [address], [address], 3 16:06:38 triamcinolo ne acetonide 0.1 % topical cream 2022 023 [facility], [address] [place] [address], [address], 3 16:06:36 cyanocobala min (vit B-12) 1,000 mcg/mL injection solution 2023 024 Not available 4 13:26:38 prednisone 20 mg tablet 2023 024 [facility], [address] [place] [address], [address], 4 08:46:43 doxycycline hyclate 100 mg capsule 2023 024 [facility], [address] [place] [address], [address], 4 08:46:43 Patient TargetsNo targets recorded. Patient Instructions Encounter Date Encounter Id Patient Instructions Last Modified By Organization Details Last Modified Time 01/26/2023 [id number] INFLUENZA VACCINE TD/TDAP Recommended today, patient declined Ordered Patient will get at local pharmacy/health department PNEUMONIA VACCINE SHINGLES MAMMOGRAM: Last Mammogram __ Recommended today, but patient declined Ordered DEXA SCAN CERVICAL SCREENING/PELVIC EXAMINATION Recommended today, but patient declined Ordered No screening necessary patient is up to date COLORECTAL SCREENING: Last Colonoscopy Recommended today, but patient declined Ordered DEPRESSION SCREENING BMI Overweight Approp riate Underweight Obesity continue your current weight loss efforts try to lose 5% of your body weight NUTRITION Heart Healthy Diet PHYSICAL ACTIVITY minimum of 10-20 minutes of activity that causes mild breathlessness/da y minimum of 20-30 minutes activity that causes mild breathlessness/da y minimum of 30-40 minutes of activity that causes mild breathlessness/da y VISION Ordered Recommend ed today ALCOHOL USE No alcohol use TOBACCO USE LUNG CANCER SCREENING Non Smoker-not indicated SEXUALLY ACTIVE HEPATITIS C SCREENING Not indicated GLUCOSE SCREENING Ordered Not needed LIPID SCREENING Ordered Not needed [email or web address] Not available 01/26/2023 13:24:56 01/21/2024 [id number] Thank you for your visit to our office today. We would like to request that you reach out to your referring or previous provider and request that they send us a Summary of Care in electronic form, so that we may have it on file in your medical record. At your visit, we had the medical records we needed to provide you with the best possible care; however, for insurance purposes, an electronic Summary of Care is beneficial. Thank you for your assistance in obtaining this information and we look forward to providing continued care to you. Please review your medication list from the Summary of Care for this visit. If there are any differences from what you are currently taking at home, please call us to discuss. Not available 01/21/2024 08:28:50 Homebound Status : {{Patient has an inability to leave the home without a taxing effort and assistance from another person Does not meet homebound status}} Required Home Health Services: {{none care home, physical therapy, occupational therapy care home, physical therapy care home}} Durable Medical Equipment needed: {{cane walker wal ker with seat manual wheelchair bedsid e commode oxygen}} Billing Guidelines CPT code 53713- Transitional Care Management services with moderate medical decision complexity ([id number] visit within 14 days of discharge). CPT code 52444- Transitional Care Management services with high medical decision complexity ([id number]-[id number] visit within 7 days of discharge). Not available 01/21/2024 08:28:50 Reason for Referral Master Ocean Referral for Opal macias Referring Physician: Blaire Merchant, Internal Medicine, Encounter Date: 01/26/2023 Neurologist Referral for Jurado Please call patient daughter Kristen to schedule appointment at [phone]. Referring Physician: Sandy Webb, Family Medicine, Encounter Date: 10/12/2023 Results Created Date Observation Date Name Description Value Unit Range Abnormal Flag Note LastModifiedBy Organization Detail LastModifiedTime 01/21/20 23 01/20/2023 CBC/C OMPLE TE BLD COUNT W/DIF F white blood cells 7.3 x10'3 /uL 4.2-10 .8 Not Available [facility] (Lab) [address] [place], [address], 01/20/2023 13:26:34 01/21/20 23 01/20/2023 CBC/C OMPLE TE BLD COUNT W/DIF F red blood cells 4.68 x10'6 /uL 3.80-5 .20 Not Available [facility] (Lab) [address] [place], [address], 01/20/2023 13:26:34 01/21/20 23 01/20/2023 CBC/C OMPLE TE BLD COUNT W/DIF F hemoglobin 14.9 g/dL 12.0-1 5.6 Not Available [facility] (Lab) [address] [place], [address], 01/20/2023 13:26:34 01/21/20 23 01/20/2023 CBC/C OMPLE TE BLD COUNT W/DIF F hematocrit 44.1 % 35.7-4 5.7 Not Available [facility] (Lab) [address] [place], [address], 01/20/2023 13:26:34 01/21/20 23 01/20/2023 CBC/C OMPLE TE BLD COUNT W/DIF F mean red cell volume 94.2 fL 82.0-9 9.0 Not Available [facility] (Lab) [address] [place], [address], 01/20/2023 13:26:34 01/21/20 23 01/20/2023 CBC/C OMPLE TE BLD COUNT W/DIF F mean red cell hemoglobin 31.8 pg 27.0-3 3.0 Not Available [facility] (Lab) [address] [place], [address], 01/20/2023 13:26:34 01/21/20 23 01/20/2023 CBC/C OMPLE TE BLD COUNT W/DIF F mean RBC HGB concentratio n 33.8 g/dL 31.0-3 6.0 Not Available [facility] (Lab) [address] [place], [address], 01/20/2023 13:26:34 01/21/20 23 01/20/2023 CBC/C OMPLE TE BLD COUNT W/DIF F red cell distribution width 13.2 % 11.8-1 5.5 Not Available [facility] (Lab) [address] [place], [address], 01/20/2023 13:26:34 01/21/20 23 01/20/2023 CBC/C OMPLE TE BLD COUNT W/DIF F platelets 219 x10'3 /uL 150-40 0 Not Available [facility] (Lab) [address] [place], [address], 01/20/2023 13:26:34 01/21/20 23 01/20/2023 CBC/C OMPLE TE BLD COUNT W/DIF F mean platelet volume 10.9 fL 9.0-12 .4 Not Available [facility] (Lab) [address] [place], [address], 01/20/2023 13:26:34 01/21/20 23 01/20/2023 CBC/C OMPLE TE BLD COUNT W/DIF F neutrophils 56.3 % 39.0-7 2.0 Not Available [facility] (Lab) [address] [place], [address], 01/20/2023 13:26:34 01/21/20 23 01/20/2023 CBC/C OMPLE TE BLD COUNT W/DIF F lymphocytes 34.4 % 16.0-4 7.0 Not Available [facility] (Lab) [address] [place], [address], 01/20/2023 13:26:34 01/21/20 23 01/20/2023 CBC/C OMPLE TE BLD COUNT W/DIF F monocytes 5.4 % 5.0-12 .0 Not Available [facility] (Lab) [address] [place], [address], 01/20/2023 13:26:34 01/21/20 23 01/20/2023 CBC/C OMPLE TE BLD COUNT W/DIF F eosinophils 3.0 % 1.0-7. 0 Not Available [facility] (Lab) [address] [place], [address], 01/20/2023 13:26:34 01/21/20 23 01/20/2023 CBC/C OMPLE TE BLD COUNT W/DIF F basophils 0.6 % 0.0-2. 0 Not Available [facility] (Lab) [address] [place], [address], 01/20/2023 13:26:34 01/21/20 23 01/20/2023 CBC/C OMPLE TE BLD COUNT W/DIF F immature granulocytes 0.3 % 0.00-0 .50 Not Available [facility] (Lab) [address] [place], [address], 01/20/2023 13:26:34 01/21/20 23 01/20/2023 CBC/C OMPLE TE BLD COUNT W/DIF F neutrophils, absolute count 4.09 x10'3 /uL 1.5-8. 0 Not Available [facility] (Lab) [address] [place], [address], 01/20/2023 13:26:34 01/21/20 23 01/20/2023 CBC/C OMPLE TE BLD COUNT W/DIF F lymphocytes, absolute count 2.50 x10'3 /uL 1.07-3 .43 Not Available [facility] (Lab) [address] [place], [address], 01/20/2023 13:26:34 01/21/20 23 01/20/2023 CBC/C OMPLE TE BLD COUNT W/DIF F monocytes, absolute count 0.39 x10'3 /uL 0.29-0 .99 Not Available [facility] (Lab) [address] [place], [address], 01/20/2023 13:26:34 01/21/20 23 01/20/2023 CBC/C OMPLE TE BLD COUNT W/DIF F eosinophils, absolute count 0.22 x10'3 /uL 0.02-0 .53 Not Available [facility] (Lab) [address] [place], [address], 01/20/2023 13:26:34 01/21/20 23 01/20/2023 CBC/C OMPLE TE BLD COUNT W/DIF F basophils, absolute count 0.04 x10'3 /uL 0.01-0 .08 Not Available [facility] (Lab) [address] [place], [address], 01/20/2023 13:26:34 01/21/20 23 01/20/2023 CBC/C OMPLE TE BLD COUNT W/DIF F immature granulocytes ,absolute 0.02 x10'3 /uL 0.00-0 .05 Not Available [facility] (Lab) [address] [place], [address], 01/20/2023 13:26:34 01/21/20 23 01/20/2023 CBC/C OMPLE TE BLD COUNT W/DIF F nucleated red blood cells 0.0 % -0 Not Available [facility] (Lab) [address] [facility] [place], [address], 01/20/2023 13:26:34 01/21/20 23 01/20/2023 CBC/C OMPLE TE BLD COUNT W/DIF F NRBC# 0.00 x10'3 /uL Not Available [facility] (Lab) [address] [place], [address], 01/20/2023 13:26:34 01/21/20 23 01/20/2023 URINA LYSIS COMPL ETE/I RIS W/RFX color YELLOW Not Available [facility] (Lab) [address] [place], [address], 01/20/2023 13:32:38 01/21/20 23 01/20/2023 URINA LYSIS COMPL ETE/I RIS W/RFX appear HAZY Not Available [facility] (Lab) [address] [place], [address], 01/20/2023 13:32:38 01/21/20 23 01/20/2023 URINA LYSIS COMPL ETE/I RIS W/RFX specific gravity 1.021 1.001- 1.030 Not Available [facility] (Lab) [address] [place], [address], 01/20/2023 13:32:38 01/21/20 23 01/20/2023 URINA LYSIS COMPL ETE/I RIS W/RFX pH 6.0 pH_un its 5.0-9. 0 Not Available [facility] (Lab) [address] [place], [address], 01/20/2023 13:32:38 01/21/20 23 01/20/2023 URINA LYSIS COMPL ETE/I RIS W/RFX leukocytes >/=500 angela/u L negati ve- abnormal Not Available [facility] (Lab) [address] [place], [address], 01/20/2023 13:32:38 01/21/20 23 01/20/2023 URINA LYSIS COMPL ETE/I RIS W/RFX nitrite NEGATI VE negati ve- Not Available [facility] (Lab) [address] [place], [address], 01/20/2023 13:32:38 01/21/20 23 01/20/2023 URINA LYSIS COMPL ETE/I RIS W/RFX protein 10 mg/dL negati ve- abnormal Not Available [facility] (Lab) [address] [place], [address], 01/20/2023 13:32:38 01/21/20 23 01/20/2023 URINA LYSIS COMPL ETE/I RIS W/RFX glucose NORMAL mg/dL normal - Not Available [facility] (Lab) [address] [place], [address], 01/20/2023 13:32:38 01/21/20 23 01/20/2023 URINA LYSIS COMPL ETE/I RIS W/RFX ketones NEGATI VE mg/dL negati ve- Not Available [facility] (Lab) [address] [place], [address], 01/20/2023 13:32:38 01/21/20 23 01/20/2023 URINA LYSIS COMPL ETE/I RIS W/RFX urobilinogen NORMAL mg/dL normal - Not Available [facility] (Lab) [address] [place], [address], 01/20/2023 13:32:38 01/21/20 23 01/20/2023 URINA LYSIS COMPL ETE/I RIS W/RFX bilirubin NEGATI VE mg/dL negati ve- Not Available [facility] (Lab) [address] [place], [address], 01/20/2023 13:32:38 01/21/20 23 01/20/2023 URINA LYSIS COMPL ETE/I RIS W/RFX blood NEGATI VE mg/dL negati ve- Not Available [facility] (Lab) [address] [place], [address], 01/20/2023 13:32:38 01/21/20 23 01/20/2023 URINA LYSIS COMPL ETE/I RIS W/RFX white blood cells >100 /i??h pfi?? 0-8 abnormal Not Available [facility] (Lab) [address] [place], [address], 01/20/2023 13:32:38 01/21/20 23 01/20/2023 URINA LYSIS COMPL ETE/I RIS W/RFX red blood cells 5-10 /i??h pfi?? 0-4 abnormal Not Available [facility] (Lab) [address] [place], [address], 01/20/2023 13:32:38 01/21/20 23 01/20/2023 URINA LYSIS COMPL ETE/I RIS W/RFX bacteria NONE Not Available [facility] (Lab) [address] [place], [address], 01/20/2023 13:32:38 01/21/20 23 01/20/2023 URINA LYSIS COMPL ETE/I RIS W/RFX mucous OCCASI ONAL /i??l pfi?? abnormal Not Available [facility] (Lab) [address] [place], [address], 01/20/2023 13:32:38 01/21/20 23 01/20/2023 URINA LYSIS COMPL ETE/I RIS W/RFX squamous epithelial PACKED FIELD /i??l pfi?? abnormal Not Available [facility] (Lab) [address] [place], [address], 01/20/2023 13:32:38 01/21/20 23 01/20/2023 URINA LYSIS COMPL ETE/I RIS W/RFX color YELLOW Not Available [facility] (Lab) [address] [place], [address], 01/20/2023 13:32:40 01/21/20 23 01/20/2023 URINA LYSIS COMPL ETE/I RIS W/RFX appear HAZY Not Available [facility] (Lab) [address] [place], [address], 01/20/2023 13:32:40 01/21/20 23 01/20/2023 URINA LYSIS COMPL ETE/I RIS W/RFX specific gravity 1.021 1.001- 1.030 Not Available [facility] (Lab) [address] [place], [address], 01/20/2023 13:32:40 01/21/20 23 01/20/2023 URINA LYSIS COMPL ETE/I RIS W/RFX pH 6.0 pH_un its 5.0-9. 0 Not Available [facility] (Lab) [address] [place], [address], 01/20/2023 13:32:40 01/21/20 23 01/20/2023 URINA LYSIS COMPL ETE/I RIS W/RFX leukocytes >/=500 angela/u L negati ve- abnormal Not Available [facility] (Lab) [address] [place], [address], 01/20/2023 13:32:40 01/21/20 23 01/20/2023 URINA LYSIS COMPL ETE/I RIS W/RFX nitrite NEGATI VE negati ve- Not Available [facility] (Lab) [address] [place], [address], 01/20/2023 13:32:40 01/21/20 23 01/20/2023 URINA LYSIS COMPL ETE/I RIS W/RFX protein 10 mg/dL negati ve- abnormal Not Available [facility] (Lab) [address] [place], [address], 01/20/2023 13:32:40 01/21/20 23 01/20/2023 URINA LYSIS COMPL ETE/I RIS W/RFX glucose NORMAL mg/dL normal - Not Available [facility] (Lab) [address] [place], [address], 01/20/2023 13:32:40 01/21/20 23 01/20/2023 URINA LYSIS COMPL ETE/I RIS W/RFX ketones NEGATI VE mg/dL negati ve- Not Available [facility] (Lab) [address] [place], [address], 01/20/2023 13:32:40 01/21/20 23 01/20/2023 URINA LYSIS COMPL ETE/I RIS W/RFX urobilinogen NORMAL mg/dL normal - Not Available [facility] (Lab) [address] [place], [address], 01/20/2023 13:32:40 01/21/20 23 01/20/2023 URINA LYSIS COMPL ETE/I RIS W/RFX bilirubin NEGATI VE mg/dL negati ve- Not Available [facility] (Lab) [address] [place], [address], 01/20/2023 13:32:40 01/21/20 23 01/20/2023 URINA LYSIS COMPL ETE/I RIS W/RFX blood NEGATI VE mg/dL negati ve- Not Available [facility] (Lab) [address] [place], [address], 01/20/2023 13:32:40 01/21/20 23 01/20/2023 URINA LYSIS COMPL ETE/I RIS W/RFX white blood cells >100 /i??h pfi?? 0-8 abnormal Not Available [facility] (Lab) [address] [place], [address], 01/20/2023 13:32:40 01/21/20 23 01/20/2023 URINA LYSIS COMPL ETE/I RIS W/RFX red blood cells 5-10 /i??h pfi?? 0-4 abnormal Not Available [facility] (Lab) [address] [facility] [place], [address], 01/20/2023 13:32:40 01/21/20 23 01/20/2023 URINA LYSIS COMPL ETE/I RIS W/RFX bacteria NONE Not Available [facility] (Lab) [address] [place], [address], 01/20/2023 13:32:40 01/21/20 23 01/20/2023 URINA LYSIS COMPL ETE/I RIS W/RFX mucous OCCASI ONAL /i??l pfi?? abnormal Not Available [facility] (Lab) [address] [place], [address], 01/20/2023 13:32:40 01/21/20 23 01/20/2023 URINA LYSIS COMPL ETE/I RIS W/RFX squamous epithelial PACKED FIELD /i??l pfi?? abnormal Not Available [facility] (Lab) [address] [place], [address], 01/20/2023 13:32:40 01/21/20 23 01/20/2023 COMPR EHENS LOBITO METAB OLIC PANEL sodium 140 mmol/ L 137-14 5 Not Available [facility] (Lab) [address] [place], [address], 01/20/2023 13:53:35 01/21/20 23 01/20/2023 COMPR EHENS LOBITO METAB OLIC PANEL potassium 3.8 mmol/ L 3.5-5. 1 Not Available [facility] (Lab) [address] [place], [address], 01/20/2023 13:53:35 01/21/20 23 01/20/2023 COMPR EHENS LOBITO METAB OLIC PANEL chloride 104 mmol/ L 98-107 Not Available [facility] (Lab) [address] [place], [address], 01/20/2023 13:53:35 01/21/20 23 01/20/2023 COMPR EHENS LOBITO METAB OLIC PANEL carbon dioxide 29 mmol/ L 22-30 Not Available [facility] (Lab) [address] [place], [address], 01/20/2023 13:53:35 01/21/20 23 01/20/2023 COMPR EHENS LOBITO METAB OLIC PANEL anion gap 10.8 mmol/ L 14-22 low Not Available [facility] (Lab) [address] [place], [address], 01/20/2023 13:53:35 01/21/20 23 01/20/2023 COMPR EHENS LOBITO METAB OLIC PANEL glucose 108 mg/dL 70-99 high Not Available [facility] (Lab) [address] [place], [address], 01/20/2023 13:53:35 01/21/20 23 01/20/2023 COMPR EHENS LOBITO METAB OLIC PANEL BUN 22 mg/dL 8-19 high Not Available [facility] (Lab) [address] [place], [address], 01/20/2023 13:53:35 01/21/20 23 01/20/2023 COMPR EHENS LOBITO METAB OLIC PANEL creatinine 0.82 mg/dL 0.66-1 .25 Not Available [facility] (Lab) [address] [place], [address], 01/20/2023 13:53:35 01/21/20 23 01/20/2023 COMPR EHENS LOBITO METAB OLIC PANEL GFR >60 Refer ence Range : [place] ge GFR Healt hy Adult : >60 mL/mi n/1.7 3 m2 Chron ic Kidne y Disea se: 15-60 mL/mi n/1.7 3 m2 Kidne y Failu re: <15/m L/min /1.73 m2 www.n iddk. nih.g ov The MDRD study equat ion has not been valid ated in child charu <18 years of age; pregn ant women ; the elder ly >85 years of age; or in some racia l or ethni c subgr oups, such as Hispa nics. Outsi de the valid ated dipika eters , estim ated GFR is less accur ate, requi ring clini lydia judgm ent on a case- by-ca se basis . Clini lydia inter preta tion for other races and ages must be made by the clini angela. The MDRD study equat ion has not been valid ated for the evalu ation of serum creat inine relat ed to nutri livan l statu s or medic ation usage . For perso ns <18 years of age, a pedia tric GFR calcu lator is avail able on the [facility] websi te: https :[email or web address] meza.anabella plata.o rg/pr lizetess ional s/kdo qi/gf r_cal culat or Not Available [facility] (Lab) [address] [place], [address], 01/20/2023 13:53:35 01/21/2001/20/2023 COMPR EHENS LOBITO METAB OLIC PANEL alkaline phosphatase 76 U/L 38-126 Not Available [facility] (Lab) [address] [place], [address], 01/20/2023 13:53:35 01/21/20 23 01/20/2023 COMPR EHENS LOBITO METAB OLIC PANEL alanine aminotransfe rase 34 U/L 0-35 Not Available [facility] (Lab) [address] [place], [address], 01/20/2023 13:53:35 01/21/20 23 01/20/2023 COMPR EHENS LOBITO METAB OLIC PANEL aspartate aminotransfe rase 31 U/L 15-37 Not Available [facility] (Lab) [address] [place], [address], 01/20/2023 13:53:35 01/21/20 23 01/20/2023 COMPR EHENS LOBITO METAB OLIC PANEL bilirubin, total 0.60 mg/dL 0.20-1 .30 Not Available [facility] (Lab) [address] [place], [address], 01/20/2023 13:53:35 01/21/20 23 01/20/2023 COMPR EHENS LOBITO METAB OLIC PANEL calcium 9.4 mg/dL 8.4-10 .2 Not Available [facility] (Lab) [address] [place], [address], 01/20/2023 13:53:35 01/21/20 23 01/20/2023 COMPR EHENS LOBITO METAB OLIC PANEL total protein 7.0 g/dL 6.3-8. 2 Not Available [facility] (Lab) [address] [place], [address], 01/20/2023 13:53:35 01/21/20 23 01/20/2023 COMPR EHENS LOBITO METAB OLIC PANEL albumin 4.4 g/dL 3.0-4. 4 Not Available [facility] (Lab) [address] [place], [address], 01/20/2023 13:53:35 01/21/20 23 01/20/2023 COMPR EHENS LOBITO METAB OLIC PANEL globulin 2.6 g/dL 2.6-4. 2 Not Available [facility] (Lab) [address] [place], [address], 01/20/2023 13:53:35 01/21/20 23 01/20/2023 COMPR EHENS LOBITO METAB OLIC PANEL A/G ratio 1.7 ratio 1.0-2. 0 Not Available [facility] (Lab) [address] [place], [address], 01/20/2023 13:53:35 01/21/20 23 01/20/2023 LIPID PANEL cholesterol 228 mg/dL 140-19 9 high [facility] BART NSUS RECOM MENDA TION FOR JAIME STERO L: ADULT CHILD LOW RISK: <200 <170 BORDE RLINE : <200- 239 ----- HIGH RISK: >240 >200 Not Available [facility] (Lab) [address] [place], [address], 01/20/2023 13:53:37 01/21/20 23 01/20/2023 LIPID PANEL triglyceride s 193 mg/dL 0-150 high [facility] NSUS REPOR T RECOM MENDA TION FOR TRIGL YCERI AUGUSTA: ADULT CHILD LOW RISK: <150 ----- BODER LINE: 150-1 99 ----- HIGH RISK: >200 ----- Not Available [facility] (Lab) [address] [place], [address], 01/20/2023 13:53:37 01/21/20 23 01/20/2023 LIPID PANEL HDL cholesterol 60 mg/dL 40- Not Available [facility] (Lab) [address] [place] [address], [address], 01/20/2023 13:53:37 01/21/20 23 01/20/2023 LIPID PANEL LDL cholesterol, calculated 129 mg/dL 0-130 [facility] NSUS REPOR T RECOM MENDA TIONS FOR LDL: ADULT CHILD LOW RISK <130 <110 (OPTI MAL LDL) <100 ----- BORDE RLINE : 130-1 59 ----- HIGH RISK: >160 >130 A TRIGL YCERI DE RESUL T >400 INVAL IDATE S THE CALCU LATIO N FOR LDL FRACT IONAT ION - THE LDL RESUL T WILL NOT BE REPOR KARMA. Not Available [facility] (Lab) [address] [place], [address], 01/20/2023 13:53:37 01/21/20 23 01/20/2023 TSH W/REF GUEVARA FT4 TSH with reflex free T4 3.130 uIU/m L 0.465- 4.680 Not Available [facility] (Lab) [address] [place], [address], 01/20/2023 14:29:44 01/21/20 23 01/20/2023 VITAM IN D 25-HY DROXY [id number] 47.0 NG/mL 30-100 Vitam in D Statu s: Defic ient: <20 ng/mL Insuf ficie nt: 20-29 ng/mL Suffi cient : 30-10 0 ng/mL Not Available [facility] (Lab) [address] [place], [address], 01/20/2023 14:47:14 01/21/20 23 01/20/2023 HEMOG LOBIN A1C HA1C 6.2 % 4.0-6. 0 high Diabe todd Scree meka Crite govind: <5.7% Consi stent with absen ce of diabe todd 5.7-6 .4% Consi stent with incre ased risk for diabe todd (pred iabet es) >OR=6 .5% Consi stent with diabe todd REFER ENCE: Diabe todd Care 2016, 39(Sauer ppl.1 ):s13 -s22 Not Available [facility] (Lab) [address] [place], [address], 01/20/2023 15:15:58 06/01/20 23 06/01/2023 CBC/C OMPLE TE BLD COUNT W/DIF F white blood cells 8.7 x10'3 /uL 4.2-10 .8 Not Available [facility] (Lab) [address] [place], [address], 06/01/2023 16:14:02 06/01/20 23 06/01/2023 CBC/C OMPLE TE BLD COUNT W/DIF F red blood cells 4.64 x10'6 /uL 3.80-5 .20 Not Available [facility] (Lab) [address] [place], [address], 06/01/2023 16:14:02 06/01/20 23 06/01/2023 CBC/C OMPLE TE BLD COUNT W/DIF F hemoglobin 14.8 g/dL 12.0-1 5.6 Not Available [facility] (Lab) [address] [place], [address], 06/01/2023 16:14:02 06/01/20 23 06/01/2023 CBC/C OMPLE TE BLD COUNT W/DIF F hematocrit 43.2 % 35.7-4 5.7 Not Available [facility] (Lab) [address] [place], [address], 06/01/2023 16:14:02 06/01/20 23 06/01/2023 CBC/C OMPLE TE BLD COUNT W/DIF F mean red cell volume 93.1 fL 82.0-9 9.0 Not Available [facility] (Lab) [address] [place], [address], 06/01/2023 16:14:02 06/01/2006/01/2023 CBC/C OMPLE TE BLD COUNT W/DIF F mean red cell hemoglobin 31.9 pg 27.0-3 3.0 Not Available [facility] (Lab) [address] [place], [address], 06/01/2023 16:14:02 06/01/20 23 06/01/2023 CBC/C OMPLE TE BLD COUNT W/DIF F mean RBC HGB concentratio n 34.3 g/dL 31.0-3 6.0 Not Available [facility] (Lab) [address] [place], [address], 06/01/2023 16:14:02 06/01/20 23 06/01/2023 CBC/C OMPLE TE BLD COUNT W/DIF F red cell distribution width 13.2 % 11.8-1 5.5 Not Available [facility] (Lab) [address] [place], [address], 06/01/2023 16:14:02 06/01/20 23 06/01/2023 CBC/C OMPLE TE BLD COUNT W/DIF F platelets 219 x10'3 /uL 150-40 0 Not Available [facility] (Lab) [address] [place], [address], 06/01/2023 16:14:02 06/01/20 23 06/01/2023 CBC/C OMPLE TE BLD COUNT W/DIF F mean platelet volume 10.3 fL 9.0-12 .4 Not Available [facility] (Lab) [address] [place], [address], 06/01/2023 16:14:02 06/01/20 23 06/01/2023 CBC/C OMPLE TE BLD COUNT W/DIF F neutrophils 55.1 % 39.0-7 2.0 Not Available [facility] (Lab) [address] [place], [address], 06/01/2023 16:14:02 06/01/20 23 06/01/2023 CBC/C OMPLE TE BLD COUNT W/DIF F lymphocytes 36.3 % 16.0-4 7.0 Not Available [facility] (Lab) [address] [place], [address], 06/01/2023 16:14:02 06/01/20 23 06/01/2023 CBC/C OMPLE TE BLD COUNT W/DIF F monocytes 5.0 % 5.0-12 .0 Not Available [facility] (Lab) [address] [place], [address], 06/01/2023 16:14:02 06/01/20 23 06/01/2023 CBC/C OMPLE TE BLD COUNT W/DIF F eosinophils 2.8 % 1.0-7. 0 Not Available [facility] (Lab) [address] [place], [address], 06/01/2023 16:14:02 06/01/20 23 06/01/2023 CBC/C OMPLE TE BLD COUNT W/DIF F basophils 0.5 % 0.0-2. 0 Not Available [facility] (Lab) [address] [place], [address], 06/01/2023 16:14:02 06/01/20 23 06/01/2023 CBC/C OMPLE TE BLD COUNT W/DIF F immature granulocytes 0.3 % 0.00-0 .50 Not Available [facility] (Lab) [address] [place], [address], 06/01/2023 16:14:02 06/01/20 23 06/01/2023 CBC/C OMPLE TE BLD COUNT W/DIF F neutrophils, absolute count 4.79 x10'3 /uL 1.5-8. 0 Not Available [facility] (Lab) [address] [place], [address], 06/01/2023 16:14:02 06/01/20 23 06/01/2023 CBC/C OMPLE TE BLD COUNT W/DIF F lymphocytes, absolute count 3.15 x10'3 /uL 1.07-3 .43 Not Available [facility] (Lab) [address] [place], [address], 06/01/2023 16:14:02 06/01/20 23 06/01/2023 CBC/C OMPLE TE BLD COUNT W/DIF F monocytes, absolute count 0.43 x10'3 /uL 0.29-0 .99 Not Available [facility] (Lab) [address] [place], [address], 06/01/2023 16:14:02 06/01/20 23 06/01/2023 CBC/C OMPLE TE BLD COUNT W/DIF F eosinophils, absolute count 0.24 x10'3 /uL 0.02-0 .53 Not Available [facility] (Lab) [address] [place], [address], 06/01/2023 16:14:02 06/01/20 23 06/01/2023 CBC/C OMPLE TE BLD COUNT W/DIF F basophils, absolute count 0.04 x10'3 /uL 0.01-0 .08 Not Available [facility] (Lab) [address] [place], [address], 06/01/2023 16:14:02 06/01/20 23 06/01/2023 CBC/C OMPLE TE BLD COUNT W/DIF F immature granulocytes ,absolute 0.03 x10'3 /uL 0.00-0 .05 Not Available [facility] (Lab) [address] [place], [address], 06/01/2023 16:14:02 06/01/20 23 06/01/2023 CBC/C OMPLE TE BLD COUNT W/DIF F nucleated red blood cells 0.0 % -0 Not Available [facility] (Lab) [address] [place], [address], 06/01/2023 16:14:02 06/01/20 23 06/01/2023 CBC/C OMPLE TE BLD COUNT W/DIF F NRBC# 0.00 x10'3 /uL Not Available [facility] (Lab) [address] [place], [address], 06/01/2023 16:14:02 06/01/20 23 06/01/2023 COMPR EHENS LOBITO METAB OLIC PANEL sodium 140 mmol/ L 137-14 5 Not Available [facility] (Lab) [address] [place], [address], 06/01/2023 16:27:51 06/01/20 23 06/01/2023 COMPR EHENS LOBITO METAB OLIC PANEL potassium 3.9 mmol/ L 3.5-5. 1 Not Available [facility] (Lab) [address] [place], [address], 06/01/2023 16:27:51 06/01/20 23 06/01/2023 COMPR EHENS LOBITO METAB OLIC PANEL chloride 104 mmol/ L 98-107 Not Available [facility] (Lab) [address] [place], [address], 06/01/2023 16:27:51 06/01/20 23 06/01/2023 COMPR EHENS LOBITO METAB OLIC PANEL carbon dioxide 28 mmol/ L 22-30 Not Available [facility] (Lab) [address] [place], [address], 06/01/2023 16:27:51 06/01/20 23 06/01/2023 COMPR EHENS LOBITO METAB OLIC PANEL anion gap 11.9 mmol/ L 14-22 low Not Available [facility] (Lab) [address] [place], [address], 06/01/2023 16:27:51 06/01/20 23 06/01/2023 COMPR EHENS LOBITO METAB OLIC PANEL glucose 109 mg/dL 70-99 high Not Available [facility] (Lab) [address] [place], [address], 06/01/2023 16:27:51 06/01/20 23 06/01/2023 COMPR EHENS LOBITO METAB OLIC PANEL BUN 20 mg/dL 8-19 high Not Available [facility] (Lab) [address] [place], [address], 06/01/2023 16:27:51 06/01/20 23 06/01/2023 COMPR EHENS LOBITO METAB OLIC PANEL creatinine 0.70 mg/dL 0.66-1 .25 Not Available [facility] (Lab) [address] [place], [address], 06/01/2023 16:27:51 06/01/20 23 06/01/2023 COMPR EHENS LOBITO METAB OLIC PANEL GFR >60 Refer ence Range : [place] ge GFR Healt hy Adult : >60 mL/mi n/1.7 3 m2 Chron ic Kidne y Disea se: 15-60 mL/mi n/1.7 3 m2 Kidne y Failu re: <15/m L/min /1.73 m2 www.n iddk. nih.g ov The MDRD study equat ion has not been valid ated in child charu <18 years of age; pregn ant women ; the elder ly >85 years of age; or in some racia l or ethni c subgr oups, such as [facility] nics. Outsi de the valid ated dipika eters , estim ated GFR is less accur ate, requi ring clini lydia judgm ent on a case- by-ca se basis . Clini lydia inter preta tion for other races and ages must be made by the clini angela. The MDRD study equat ion has not been valid ated for the evalu ation of serum creat inine relat ed to nutri livan l statu s or medic ation usage . For perso ns <18 years of age, a pedia tric GFR calcu lator is avail able on the F websi te: https ://miles w.[email or web address] ricey.o rg/pr ofess ional s/kdo qi/gf r_cal culat or Not Available [facility] (Lab) [address] [place], [address], 06/01/2023 16:27:51 06/01/20 23 06/01/2023 COMPR EHENS LOBITO METAB OLIC PANEL alkaline phosphatase 79 U/L 38-126 Not Available [facility] (Lab) [address] [place], [address], 06/01/2023 16:27:51 06/01/20 23 06/01/2023 COMPR EHENS LOBITO METAB OLIC PANEL alanine aminotransfe rase 29 U/L 0-35 Not Available [facility] (Lab) [address] [place], [address], 06/01/2023 16:27:51 06/01/20 23 06/01/2023 COMPR EHENS LOBITO METAB OLIC PANEL aspartate aminotransfe rase 61 U/L 15-37 high Not Available [facility] (Lab) [address] [place], [address], 06/01/2023 16:27:51 06/01/20 23 06/01/2023 COMPR EHENS LOBITO METAB OLIC PANEL bilirubin, total 0.80 mg/dL 0.20-1 .30 Not Available [facility] (Lab) [address] [place], [address], 06/01/2023 16:27:51 06/01/20 23 06/01/2023 COMPR EHENS LOBITO METAB OLIC PANEL calcium 9.1 mg/dL 8.4-10 .2 Not Available [facility] (Lab) [address] [place], [address], 06/01/2023 16:27:51 06/01/20 23 06/01/2023 COMPR EHENS LOBITO METAB OLIC PANEL total protein 7.8 g/dL 6.3-8. 2 Not Available [facility] (Lab) [address] [place], [address], 06/01/2023 16:27:51 06/01/20 23 06/01/2023 COMPR EHENS LOBITO METAB OLIC PANEL albumin 4.5 g/dL 3.0-4. 4 high Not Available [facility] (Lab) [address] [place], [address], 06/01/2023 16:27:51 06/01/20 23 06/01/2023 COMPR EHENS LOBITO METAB OLIC PANEL globulin 3.3 g/dL 2.6-4. 2 Not Available [facility] (Lab) [address] [place], [address], 06/01/2023 16:27:51 06/01/20 23 06/01/2023 COMPR EHENS LOBITO METAB OLIC PANEL A/G ratio 1.4 ratio 1.0-2. 0 Not Available [facility] (Lab) [address] [place], [address], 06/01/2023 16:27:51 06/01/20 23 06/01/2023 LIPID PANEL cholesterol 220 mg/dL 140-19 9 high [facility] NSUS RECOM MENDA TION FOR JAIME STERO L: ADULT CHILD LOW RISK: <200 <170 BORDE RLINE : <200- 239 ----- HIGH RISK: >240 >200 Not Available [facility] (Lab) [address] [place], [address], 06/01/2023 16:27:54 06/01/20 23 06/01/2023 LIPID PANEL triglyceride s 116 mg/dL 0-150 [facility] NSUS REPOR T RECOM MENDA TION FOR TRIGL YCERI AUGUSTA: ADULT CHILD LOW RISK: <150 ----- BODER LINE: 150-1 99 ----- HIGH RISK: >200 ----- Not Available [facility] (Lab) [address] [place], [address], 06/01/2023 16:27:54 08/01/06/01/2023 LIPID PANEL HDL cholesterol 63 mg/dL 40- Not Available [facility] (Lab) [address] [place], [address], 06/01/2023 16:27:54 06/01/20 23 06/01/2023 LIPID PANEL LDL cholesterol, calculated 134 mg/dL 0-130 high [facility] NSUS REPOR T RECOM MENDA TIONS FOR LDL: ADULT CHILD LOW RISK <130 <110 (OPTI MAL LDL) <100 ----- BORDE RLINE : 130-1 59 ----- HIGH RISK: >160 >130 A TRIGL YCERI DE RESUL T >400 INVAL IDATE S THE CALCU LATIO N FOR LDL FRACT IONAT ION - THE LDL RESUL T WILL NOT BE REPOR KARMA. Not Available [facility] (Lab) [address] [place], [address], 06/01/2023 16:27:54 06/01/2006/01/2023 VITAM IN D 25-HY DROXY vd25oh 31.6 NG/mL 30-100 Vitam in D Statu s: Defic ient: <20 ng/mL Insuf ficie nt: 20-29 ng/mL Suffi cient : 30-10 0 ng/mL Not Available [facility] (Lab) [address] [place], [address], 06/01/2023 16:39:56 06/01/2006/01/2023 TSH W/REF GUEVARA FT4 TSH with reflex free T4 3.080 uIU/m L 0.465- 4.680 Not Available [facility] (Lab) [address] [place], [address], 06/01/2023 16:57:37 06/01/2006/01/2023 HEMOG LOBIN A1C HA1C 5.9 % 4.0-6. 0 Diabe todd Scree meka Crite govind: <5.7% Consi stent with absen ce of diabe todd 5.7-6 .4% Consi stent with incre ased risk for diabe todd (pred iabet es) >OR=6 .5% Consi stent with diabe todd REFER ENCE: Diabe todd Care 2016, 39(Sauer ppl.1 ):s13 -s22 Not Available [facility] (Lab) [address] [place], [address], 06/01/2023 17:52:10 10/12/20 23 10/12/2023 BASIC METAB OLIC PANEL sodium 140 mmol/ L 137-14 5 Not Available [facility] (Lab) [address] [place], [address], 10/12/2023 22:03:00 10/12/20 23 10/12/2023 BASIC METAB OLIC PANEL potassium 4.1 mmol/ L 3.5-5. 1 Not Available [facility] (Lab) [address] [place], [address], 10/12/2023 22:03:00 10/12/20 23 10/12/2023 BASIC METAB OLIC PANEL chloride 105 mmol/ L 98-107 Not Available [facility] (Lab) [address] [place], [address], 10/12/2023 22:03:00 10/12/20 23 10/12/2023 BASIC METAB OLIC PANEL carbon dioxide 28 mmol/ L 22-30 Not Available [facility] (Lab) [address] [place], [address], 10/12/2023 22:03:00 10/12/20 23 10/12/2023 BASIC METAB OLIC PANEL anion gap 11.1 mmol/ L 14-22 low Not Available [facility] (Lab) [address] [place], [address], 10/12/2023 22:03:00 10/12/20 23 10/12/2023 BASIC METAB OLIC PANEL glucose 115 mg/dL 70-99 high Not Available [facility] (Lab) [address] [place], [address], 10/12/2023 22:03:00 10/12/20 23 10/12/2023 BASIC METAB OLIC PANEL BUN 13 mg/dL 8-19 Not Available [facility] (Lab) [address] [facility], [place], [address], 10/12/2023 22:03:00 10/12/20 23 10/12/2023 BASIC METAB OLIC PANEL creatinine 0.83 mg/dL 0.66-1 .25 Not Available [facility] (Lab) [address] [facility], [place], [address], 10/12/2023 22:03:00 10/12/20 23 10/12/2023 BASIC METAB OLIC PANEL GFR >60 Refer ence Range : [place] ge GFR Healt hy Adult : >60 mL/mi n/1.7 3 m2 Chron ic Kidne y Disea se: 15-60 mL/mi n/1.7 3 m2 Kidne y Failu re: <15/m L/min /1.73 m2 www.n iddk. nih.g ov The MDRD study equat ion has not been valid ated in child charu <18 years of age; pregn ant women ; the elder ly >85 years of age; or in some racia l or ethni c subgr oups, such as nv nics. Outsi de the valid ated dipika eters , estim ated GFR is less accur ate, requi ring clini lydia judgm ent on a case- by-ca se basis . Clini lydia inter preta tion for other races and ages must be made by the clini angela. The MDRD study equat ion has not been valid ated for the evalu ation of serum creat inine relat ed to nutri livan l statu s or medic ation usage . For perso ns <18 years of age, a pedia tric GFR calcu lator is avail able on the [facility] websi te: https ://miles w.[email or web address] plata.o rg/pr ofess ional s/kdo qi/gf r_cal culat or Not Available [facility] (Lab) [address] [place], [address], 10/12/2023 22:03:00 10/12/20 23 10/12/2023 BASIC METAB OLIC PANEL calcium 9.8 mg/dL 8.4-10 .2 Not Available [facility] (Lab) [address] [place], [address], 10/12/2023 22:03:00 10/12/20 23 10/12/2023 HEPAT IC/LI JACQUE PANEL alkaline phosphatase 76 U/L 38-126 Not Available [facility] (Lab) [address] [place], [address], 10/12/2023 22:03:05 10/12/20 23 10/12/2023 HEPAT IC/LI JACQUE PANEL alanine aminotransfe rase 23 U/L 0-35 Not Available [facility] (Lab) [address] [place], [address], 10/12/2023 22:03:05 10/12/20 23 10/12/2023 HEPAT IC/LI JACQUE PANEL aspartate aminotransfe rase 31 U/L 15-37 Not Available [facility] (Lab) [address] [place], [address], 10/12/2023 22:03:05 10/12/20 23 10/12/2023 HEPAT IC/LI JACQUE PANEL bilirubin, total 0.60 mg/dL 0.20-1 .30 Not Available [facility] (Lab) [address] [place], [address], 10/12/2023 22:03:05 10/12/20 23 10/12/2023 HEPAT IC/LI JACQUE PANEL bilirubin, conjugated (direct) 0.00 mg/dL 0.00-0 .30 Not Available [facility] (Lab) [address] [place], [address], 10/12/2023 22:03:05 10/12/20 23 10/12/2023 HEPAT IC/LI JACQUE PANEL biliurubin,u ncong. (indirect) 0.40 mg/dL 0.00-1 .1 Not Available [facility] (Lab) [address] [place], [address], 10/12/2023 22:03:05 10/12/20 23 10/12/2023 HEPAT IC/LI JACQUE PANEL total protein 7.2 g/dL 6.3-8. 2 Not Available [facility] (Lab) [address] [place], [address], 10/12/2023 22:03:05 10/12/20 23 10/12/2023 HEPAT IC/LI JACQUE PANEL albumin 4.2 g/dL 3.0-4. 4 Not Available [facility] (Lab) [address] [place], [address], 10/12/2023 22:03:05 10/12/20 23 10/12/2023 HEPAT IC/LI JACQUE PANEL globulin 3.0 g/dL 2.6-4. 2 Not Available [facility] (Lab) [address] [place], [address], 10/12/2023 22:03:05 10/12/20 23 10/12/2023 HEPAT IC/LI JACQUE PANEL A/G ratio 1.4 ratio 1.0-2. 0 Not Available [facility] (Lab) [address] [place], [address], 10/12/2023 22:03:05 10/12/20 23 10/12/2023 TSH thyroid-stim ulating hormone 3.190 uIU/m L 0.465- 4.680 Not Available [facility] (Lab) [address] [place], [address], 10/12/2023 22:29:03 10/12/20 23 10/12/2023 HEMOG LOBIN A1C HA1C 5.9 % 4.0-6. 0 Diabe todd Rainae meka Crite govind: <5.7% Consi stent with absen ce of diabe todd 5.7-6 .4% Consi stent with incre ased risk for diabe todd (pred iabet es) >OR=6 .5% Consi stent with diabe todd REFER ENCE: Diabe todd Care 2016, 39(Sauer ppl.1 ):s13 -s22 Not Available [facility] (Lab) [address] [place], [address], 10/12/2023 22:36:14 10/12/20 23 10/12/2023 VITAM IN B12 (MIR EMILI ) vb12 285 pg/mL 239-93 1 Not Available [facility] (Lab) [address] [place], [address], 10/12/2023 22:50:52 11/18/19 24 11/18/2023 CBC/C OMPLE TE BLD COUNT W/DIF F white blood cells 7.3 x10'3 /uL 4.2-10 .8 Not Available [facility] (Lab) [address] [place], [address], 11/18/2023 21:51:49 11/18/19 24 11/18/2023 CBC/C OMPLE TE BLD COUNT W/DIF F red blood cells 4.62 x10'6 /uL 3.80-5 .20 Not Available [facility] (Lab) [address] [place], [address], 11/18/2023 21:51:49 11/18/19 24 11/18/2023 CBC/C OMPLE TE BLD COUNT W/DIF F hemoglobin 14.9 g/dL 12.0-1 5.6 Not Available [facility] (Lab) [address] [place], [address], 11/18/2023 21:51:49 11/18/19 24 11/18/2023 CBC/C OMPLE TE BLD COUNT W/DIF F hematocrit 44.5 % 35.7-4 5.7 Not Available [facility] (Lab) [address] [place], [address], 11/18/2023 21:51:49 11/18/19 24 11/18/2023 CBC/C OMPLE TE BLD COUNT W/DIF F mean red cell volume 96.3 fL 82.0-9 9.0 Not Available [facility] (Lab) [address] [place], [address], 11/18/2023 21:51:49 11/18/19 24 11/18/2023 CBC/C OMPLE TE BLD COUNT W/DIF F mean red cell hemoglobin 32.3 pg 27.0-3 3.0 Not Available [facility] (Lab) [address] [place], [address], 11/18/2023 21:51:49 11/18/19 24 11/18/2023 CBC/C OMPLE TE BLD COUNT W/DIF F mean RBC HGB concentratio n 33.5 g/dL 31.0-3 6.0 Not Available [facility] (Lab) [address] [place], [address], 11/18/2023 21:51:49 11/18/19 24 11/18/2023 CBC/C OMPLE TE BLD COUNT W/DIF F red cell distribution width 13.3 % 11.8-1 5.5 Not Available [facility] (Lab) [address] [place], [address], 11/18/2023 21:51:49 11/18/19 24 11/18/2023 CBC/C OMPLE TE BLD COUNT W/DIF F platelets 217 x10'3 /uL 150-40 0 Not Available [facility] (Lab) [address] [place], [address], 11/18/2023 21:51:49 11/18/19 24 11/18/2023 CBC/C OMPLE TE BLD COUNT W/DIF F mean platelet volume 10.9 fL 9.0-12 .4 Not Available [facility] (Lab) [address] [place], [address], 11/18/2023 21:51:49 11/18/19 24 11/18/2023 CBC/C OMPLE TE BLD COUNT W/DIF F neutrophils 47.3 % 39.0-7 2.0 Not Available [facility] (Lab) [address] [place], [address], 11/18/2023 21:51:49 11/18/19 24 11/18/2023 CBC/C OMPLE TE BLD COUNT W/DIF F lymphocytes 42.8 % 16.0-4 7.0 Not Available [facility] (Lab) [address] [place], [address], 11/18/2023 21:51:49 11/18/19 24 11/18/2023 CBC/C OMPLE TE BLD COUNT W/DIF F monocytes 7.0 % 5.0-12 .0 Not Available [facility] (Lab) [address] [place], [address], 11/18/2023 21:51:49 11/18/19 24 11/18/2023 CBC/C OMPLE TE BLD COUNT W/DIF F eosinophils 2.2 % 1.0-7. 0 Not Available [facility] (Lab) [address] [place], [address], 11/18/2023 21:51:49 11/18/19 24 11/18/2023 CBC/C OMPLE TE BLD COUNT W/DIF F basophils 0.4 % 0.0-2. 0 Not Available [facility] (Lab) [address] [place], [address], 11/18/2023 21:51:49 11/18/19 24 11/18/2023 CBC/C OMPLE TE BLD COUNT W/DIF F immature granulocytes 0.3 % 0.00-0 .50 Not Available [facility] (Lab) [address] [place], [address], 11/18/2023 21:51:49 11/18/19 24 11/18/2023 CBC/C OMPLE TE BLD COUNT W/DIF F neutrophils, absolute count 3.46 x10'3 /uL 1.5-8. 0 Not Available [facility] (Lab) [address] [place], [address], 11/18/2023 21:51:49 11/18/19 24 11/18/2023 CBC/C OMPLE TE BLD COUNT W/DIF F lymphocytes, absolute count 3.13 x10'3 /uL 1.07-3 .43 Not Available [facility] (Lab) [address] [place], [address], 11/18/2023 21:51:49 11/18/19 24 11/18/2023 CBC/C OMPLE TE BLD COUNT W/DIF F monocytes, absolute count 0.51 x10'3 /uL 0.29-0 .99 Not Available [facility] (Lab) [address] [place], [address], 11/18/2023 21:51:49 11/18/19 24 11/18/2023 CBC/C OMPLE TE BLD COUNT W/DIF F eosinophils, absolute count 0.16 x10'3 /uL 0.02-0 .53 Not Available [facility] (Lab) [address] [place], [address], 11/18/2023 21:51:49 11/18/19 24 11/18/2023 CBC/C OMPLE TE BLD COUNT W/DIF F basophils, absolute count 0.03 x10'3 /uL 0.01-0 .08 Not Available [facility] (Lab) [address] [place], [address], 11/18/2023 21:51:49 11/18/19 24 11/18/2023 CBC/C OMPLE TE BLD COUNT W/DIF F immature granulocytes ,absolute 0.02 x10'3 /uL 0.00-0 .05 Not Available [facility] (Lab) [address] [place], [address], 11/18/2023 21:51:49 11/18/19 24 11/18/2023 CBC/C OMPLE TE BLD COUNT W/DIF F nucleated red blood cells 0.0 % -0 Not Available [facility] (Lab) [address] [place], [address], 11/18/2023 21:51:49 11/18/19 24 11/18/2023 CBC/C OMPLE TE BLD COUNT W/DIF F NRBC# 0.00 x10'3 /uL Not Available [facility] (Lab) [address] [place], [address], 11/18/2023 21:51:49 11/18/19 24 11/18/2023 VITAM IN B12 (MIR EMILI ) vb12 634 pg/mL 239-93 1 Not Available [facility] (Lab) [address] [place], [address], 11/18/2023 23:12:15 11/18/19 24 11/18/2023 FOLAT E, SERUM /PLAS MA folate 7.76 NG/mL 2.76-2 0.0 Not Available [facility] (Lab) [address] [place], [address], 11/18/2023 23:12:20 02/11/20 23 02/09/2023 consuelo figueroao, bilat [facility] [address] [place] [address] [phone] Neema segura Name: EDD LOPEZ Access ion #: [id number] Sex: F : 1944 7 Locati on: RAD Attend ing Physic nanette: BLAIRE MERCHANT Orderi ng Physic nanette: BLAIRE MERCHANT Exam Date: 023 4:23 PM Exam Name: MG MARCOS BREAST NENO BILAT Admitt ing Diagno sis(es ): MAMMOG CECILIA REPORT - FINAL EXAM: MG MARCOS BREAST NENO BILAT HISTOR Y: Routin e screen ing 79-yea r-old female with no curren t breast compla ints. The neema segura has a family histor y of breast cancer in a sister at age 7777 years old. COMPAR HARPER: 2021, 2019 TECHNI QUE: Bilate ral CC and MLO views of the breast s were perfor med. Digita l Mammog cecilia images were obtain ed. CAD (compu ter assist ed detect ion) was utiliz ed. 3D Digita l breast tomosy nthesi s was perfor med and used in the interp retati on of images . FINDIN GS: The breast s are almost entire ly fatty. Page 1 of 2 [facility] Neema segura Name: EDD LOPEZ Access ion #: [id number] Sex: F : 1944 9 Exam Date: 023 4:23 PM Exam Name: MG MARCOS BREAST NENO BILAT Admitt ing Diagno sis(es ): No masses , asymme tries, suspic ious calcif icatio ns, or willard ectura l distor tion are seen. IMPRES JEFF: BIRADS 1: Assess ment comple te. Negati ve. Recomm end annual screen ing mammog cecilia. Accord ing to the [employer], yearly mammog preeti are recomm ended starti ng at age 40 and contin uing as long as the woman is in good health . Clinic al Breast Exam should be part of the period health exam-a bout every 3 years for women in their 20s and 30s and every year for women 40 and over. Breast self-e xam is an option for women in their 20s. Any breast change noted on the breast self-e xam she would be report ed prompt ly to the neema segura's [facility]. A negati ve mammog cecilia report should not discou rage follow -up or biopsy of a clinic ally signif icant findin g and/or abnorm ality. Dense breast tissue may obscur e small neopla sms. This neema segura has been entere d into a mammog cecilia remind er system with a target date for her next mammog maximino. Create d and electr onical ly signed by: Jasper crow MD Signed Date: 10:18 AM (CT) Dictat ed by: Jasper crow MD DD: 10:18 AM (CT) DT: 10:18 AM (CT) Page 2 of [address] (Imaging) [address] [place] [address], [address], 02/11/2023 14:11:24 01/25/20 24 01/25/2024 XR, chest , 2 view [facility] [address] [address] Neema segura Name: EDD LOPEZ ion #: [id number] Sex: F : 1944 8 Dictat ed By: Kalpesh Montalvo Attend ing Physic nanette: HAYLEY GAVIRIA Orderi Physic nanette: HAYLEY GAVIRIA Exam Date: 2023 16:17 PM Exam Name: XR CHEST 2V Admitt ing Diagno sis(es ): XR CHEST 2V CLINIC AL HISTOR Y: bronc hitis COMPAR HARPER: None TECHNI QUE: Fronta l and latera l view of the chest was obtain ed FINDIN GS: Lines and Tubes: None Lungs: No focal consol idatio n. Pleura : No effusi on. No pneumo thorax . Cardio medias tinal contou rs: Unrema rkable Bones: No acute osseou s abnorm ality. IMPRES JEFF: No acute cardio pulmon francia diseas e. Electr onical ly Signed by: Kalpesh Montalvo at 2023 16:51: 10 PM Page 1 [email or web address] [facility] (Imaging) [address] [facility] [place], [address], 03/18/2024 20:37:47 02/25/20 24 02/25/2024 scree meka breas t neno, bilat [facility] [address] [facility] [address], [place] [address] Patien t Name: EDD LOPEZ ion #: [id number] Sex: F : 1944 5 Dictat ed By: Luma Hernandez Attend ing Physic nanette: HAYLEY GAVIRIA Orderi Physic nanette: HAYLEY GAVIRIA Exam Date: 2023 12:35 PM Exam Name: MG SCRN BREAST NENO BILAT Admitt ing Diagno sis(es ): SCREEN ING MAMMOG MAXIMINO WITH TOMOSY NTHESI S: REASON FOR EXAM: screen ing mammog maximino COMPAR HARPER: 3; 022 TECHNI QUE: Bilate ral CC and MLO views obtain ed. Images were obtain ed using a Digita l Tomosy nthesi s Unit. Standa rd 2D and 3D Tomosy nthesi s images were review ed. FINDIN GS: BREAST COMPOS ITION: There are scatte red areas of fibrog landul ar densit y in the bilate ral breast s. In the right breast , no asymme trical parenc hymal patter n, willard ectura l distor tion, pleomo rphic microc alcifi cation s or masses . In the left breast , no asymme trical parenc hymal patter n, willard ectura l distor tion, pleomo rphic microc alcifi cation s or masses . IMPRES JEFF: No findin gs of malign rajani. Recomm end annual mammog maximino. BIRADS : 2 - Benign Electr onical ly Signed by: Luma Hernandez at 2023 13:22: 59 PM Page [address] (Imaging) [address] [place], [address], 03/18/2024 20:38:08 02/25/20 24 02/25/2024 MAMMO , scree meka, digit al, bilat eral No observ ation record ed. [address] [place], [address], 03/18/2024 20:38:15 09/20/20 24 09/20/2024 imagi ng/di agnos tic resul t No observ ation record ed. [address], [place], [address], 09/20/2024 13:04:37 09/20/20 24 09/20/2024 imagi ng/di agnos tic resul t No observ ation record ed. [address], [place], [address], 09/20/2024 13:06:25 Result Notes None recorded. 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 Not Available [facility] 3 06:06:11 Vitamin D deficiency 72281689 Active 2017 Not Available [facility] 3 06:06:11 Vertigo 845176087 Completed Not Available [facility] 3 04:55:07 Arthropath y 563876123 Active Not Available [facility] 3 06:06:11 Alopecia 11450955 Completed Not Available [facility] 3 04:55:07 Primary malignant neoplasm of colon 57456986 Completed Not Available [facility] 3 04:55:07 Hyperlipid emia 48685902 Active 2022 Not Available [facility] 3 06:06:11 Prediabete s 940345311 Active 2022 Not Available [facility] 3 06:06:11 Dysuria 83991693 Active 2022 Not Available [facility] 3 06:06:11 Candidiasi s of vagina 93233239 Active 2022 Not Available [facility] 3 06:06:11 Depressive disorder 54122651 Active 2022 Not Available [facility] 3 06:06:11 Allergic rhinitis 01681914 Active 2022 Not Available [facility] 3 06:06:11 Osteoarthr itis 092850259 Active 2022 Not Available [facility] 3 06:06:11 Muscle tension 876509651 Active 2022 Not Available [facility] 3 06:06:11 Dyspnea on exertion 21702241 Active 2022 Not Available [facility] 3 06:06:11 Vaginitis 70541064 Active 2022 Not Available [facility] 3 06:06:11 Low back pain 730417839 Active 2022 Not Available [facility] 3 06:06:11 Atrophic vaginitis 11225545 Active 2022 Not Available [facility] 3 06:06:11 Chronic back pain 775956311 Active 2022 Not Available [facility] 3 06:06:11 Liver enzymes level above reference range 254655017 Active 2022 Liliana Wells MA null, [place] [employer] [facility] [employer] 3 14:53:16 Memory impairment 261975232 Active 2022 Sandy Webb MD [address] [place] [address], [place], [address] , [facility] [employer] [facility] [employer] 3 15:59:20 Intertrigo 60205143 Active 2022 Sandy Webb MD [address], [address], [place], [address] , [employer] 3 16:04:28 Dementia 09774935 Active 2022 Sandy Webb MD [address], [address], [place], [address] , [employer] 3 16:05:33 Cobalamin deficiency 509692925 Active 2023 Sandy Webb MD [address], [address], [place], [address] , [employer] 4 12:50:12 Bronchitis 68548180 Active 2023 Sandy Webb MD [address], [place] [address], [place], [address] , [employer] 4 08:43:46 Notes:eye exam May 2017 Problem Notes None recorded. Procedures Surgical History Date Name Laterality Status Provider Name and Address Organization Details Recorded Time 01/21/20 24 Transitional_Care_ Management completed Jenniffer Motley RN [employer] 01/21/2024 08:28:51 09/11/20 20 Most Recent Bone Density completed Not Available [facility] 12/30/2022 04:44:08 10/19/20 17 Date of Last Colonoscopy completed Not Available [facility] 12/30/2022 04:44:08 Cholecystectomy completed Not Available [facility] 12/30/2022 04:44:13 Colonoscopy completed Not Available [facility] 12/30/2022 04:44:13 other completed Not Available [facility] 12/30/2022 04:44:13 Hernia Repair completed Not Available [facility] 12/30/2022 04:44:13 Imaging Results Imaging Date Name Status LastModified by Organiz ation Details LastModified Time 02/09/2023 screening breast neno, bilat completed [email or web address] [facility] (Imaging) [address] [place], [address], 02/11/2023 14:11:24 01/25/2024 XR, chest, [address] (Imaging) [address] [place], [address], 03/18/2024 20:37:47 02/25/2024 screening breast neno, bilat completed [address] (Imaging) [address] [place], [address], 03/18/2024 20:38:08 02/25/2024 MAMMO, screening, digital, bilateral completed [address] [place], [address], 03/18/2024 20:38:15 09/20/2024 imaging/diagno stic result active [address] [place] [address], [address], 09/20/2024 13:04:37 09/20/2024 imaging/diagno stic result active [address], [address], 09/20/2024 13:06:25 Procedure Notes None recorded. Medical Equipment None Reported. Allergies Allergen ID Allergen Name Allergen Category Reaction Reaction Severity Criticality Documentation Date Start Date Code Code System Note Provider Name and Address Organization Details Recorded Time 9100 Prevnar medicatio n rash moderate Not available 12/30/2022 [address] 6 RxNorm Not Available [facility] 05:07:49 Medications Name Sig Start Date Stop Date Status Note LastModified by Organization Details LastModified Time cyclobenzap rine 10 mg tablet Take 1 tablet as needed by oral route at bedtime. 10/12 completed Not Available Not Available Not Available amoxicillin 500 mg capsule 07/21 completed Not Available Not Available Not Available hydrocodone 7.5 mg-ibuprofe n 200 mg tablet active Not Available Not Available Not Available doxycycline hyclate 100 mg capsule TAKE 1 CAPSULE BY MOUTH TWICE DAILY FOR 7 DAYS active Not Available Not Available No t Available ofloxacin 0.3 % eye drops 08/25 completed Not Available Not Available Not Available fluconazole 150 mg tablet TAKE 1 TABLET BY MOUTH NOW FOR ONE DOSE 06/01 completed Not Available Not Available Not Available hydrocodone 5 mg-acetamin ophen 325 mg tablet TAKE 1 TABLET BY MOUTH BID NEEDED active Not Available Not Available No t Available prednisone 20 mg tablet TAKE 3 TABLETS BY MOUTH DAILY FOR 3 DAYS,THEN TAKE 2 TABS DAILY FOR 3 DAYS ,THEN TAKE 1 TABLET DAILY FOR 3 DAYS,THEN TAKE 1/2 TABLET DAILY FOR 3 DAYS. active Not Available Not Available No t Available clobetasol 0.05 % topical cream APPLY 1 CREAM TOPICALLY TWICE DAILY active Not Available Not Available No t Available meclizine 12.5 mg tablet TK 1 T PO TID 03/27 completed Not Available Not Available Not Available acetaminoph en 300 mg-codeine 30 mg tablet TK 1 T PO QID PRN P 07/21 completed Not Available Not Available Not Available triamcinolo ne acetonide 0.1 % topical cream APPLY A THIN LAYER TOPICALLY TO THE AFFECTED AREA(S) TWICE DAILY NEEDED FOR RASH active Not Available Not Available No t Available amoxicillin 500 mg tablet Take 1 tablet 3 times a day by oral route for 7 days. active Not Available Not Available No t Available ketorolac 0.5 % eye drops 08/25 completed Not Available Not Available Not Available prednisolon e acetate 1 % eye drops,suspe nsion SHAKE LIQUID AND INSTILL 1 DROP TO SURGICAL EYE THREE TIMES DAILY STARTING AFTER SURGERY 12/05 completed Not Available Not Available Not Available lorazepam 0.5 mg tablet Take 1 tablet(s) 3 TIMES A DAY by oral route as needed for anxiety active Not Available Not Available No t Available cyanocobala min (vit B-12) 1,000 mcg/mL injection solution Inject 1 mL every month by subcutane ous route. 2023 active Not Available Not Available Not Avai lable nystatin 100,000 unit/gram topical cream APPLY TOPICALLY TO THE AFFECTED AREA(S) TWICE DAILY NEEDED active Not Available Not Available No t Available mometasone 50 mcg/actuati on nasal spray [place] 2 sprays every day by intranasa l route. 10/12 completed Not Available Not Available Not Available diclofenac sodium 75 mg tablet,maria elena yed release TAKE 1 TABLET BY MOUTH TWICE DAILY NEEDED active Not Available Not Available No t Available hydrocodone 5 mg-acetamin ophen 500 mg tablet TK 1 T PO Q 6 H PRN active Not Available Not Available No t Available ergocalcife rol (vitamin D2) 1,250 mcg (50,000 unit) capsule Take 1 capsule every week by oral route. active Not Available Not Available No t Available clobetasol 0.05 % topical ointment active Not Available Not Available Not Available methylpredn isolone 4 mg tablets in a dose pack 01/20 completed Not Available Not Available Not Available metformin ER 500 mg tablet,exte nded release 24 hr Take 1 PO daily with dinner active Not Available Not Available No t Available amoxicillin 875 mg-potassiu m clavulanate 125 mg tablet 01/20 completed Not Available Not Available Not Available Vitamin D3 25 mcg (1,000 unit) capsule Take 1 capsule every day by oral route. 08/05 completed Not Available Not Available Not Available cyclobenzap rine 5 mg tablet TAKE 1 TABLET BY MOUTH ONCE DAILY NEEDED 10/12 completed Not Available Not Available Not Available escitalopra m 5 mg tablet Take 1 tablet by mouth once daily active Not Available Not Available No t Available Vitamin D3 2019 active Not Available Not Available Not Avai lable Fluvirin 2015-9842 45 mcg (15 mcg x 3)/0.5 mL intramuscul ar suspension active Not Available Not Available N ot Available Fluvirin (PF) 45 mcg (15 mcg x 3)/0.5 mL intramuscul ar syringe active Not Available Not Available N ot Available Fluzone High-Dose (PF) 180 mcg/0.5 mL intramuscul ar syringe 12/13 completed Not Available Not Available Not Available OneTouch Ultra Blue Test Strip TEST UTD D active Not Available Not Available No t Available Fluad 65yr up(PF)45 mcg(15 mcgx3)/0.5 mL intramuscul ar syringe active Not Available Not Available N ot Available OneTouch Ultra2 Meter TEST ONCE DAILY UTD. active Not Available Not Available No t Available OneTouch Delica Plus Lancet 33 gauge USE UTD TO CHECK BLOOD SUGAR ONCE DAILY active Not Available Not Available No t Available Fluzone High-Dose (PF) 180 mcg/0.5 mL intramuscul ar syringe ADM 0.5ML IM UTD 03/19 completed Not Available Not Available Not Available Vitals Date Recorded Body height Body mass index (BMI) Body weight Body temperature Heart rate Oxygen saturation Oxygen saturation in Arterial blood by Pulse oximetry Systolic blood pressure Diastolic blood pressure Provider Name and Address Organization Details Last Updated DateTime 3 154.94 cm 35.7 kg/m2 11572.9 6 g 97.4 [degF] 78 /min 99 % 99 % 128 mm[Hg] 74 mm[Hg] Liliana Wells, [facility] [employer] [facility] 3 12:07:19 Date Recorded Body height Body mass index (BMI) Body weight Body temperature Heart rate Oxygen saturation Oxygen saturation in Arterial blood by Pulse oximetry Systolic blood pressure Diastolic blood pressure Provider Name and Address Organization Details Last Updated DateTime 3 154.94 cm 35.1 kg/m2 56122.1 8 g 98.1 [degF] 82 /min 98 % 98 % 124 mm[Hg] 78 mm[Hg] Liliana Wells, [facility] [employer] [facility] 3 14:29:37 Date Recorded Body height Body mass index (BMI) Body weight Body temperature Heart rate Oxygen saturation Oxygen saturation in Arterial blood by Pulse oximetry Systolic blood pressure Diastolic blood pressure Provider Name and Address Organization Details Last Updated DateTime 3 154.94 cm 36.7 kg/m2 10729.9 2 g 97.7 [degF] 83 /min 94 % 94 % 164 mm[Hg] 80 mm[Hg] Andreia Whitaker RN [facility] [employer] [facility] 3 15:46:01 Date Recorded Body height Body mass index (BMI) Body weight Body temperature Heart rate Oxygen saturation Oxygen saturation in Arterial blood by Pulse oximetry Systolic blood pressure Diastolic blood pressure Provider Name and Address Organization Details Last Updated DateTime 4 154.94 cm 36.8 kg/m2 18101.5 1 g 97.3 [degF] 80 /min 96 % 96 % 150 mm[Hg] 82 mm[Hg] Andreia Whitaker RN [facility] [employer] [facility] 4 12:26:59 Date Recorded Body height Body mass index (BMI) Body weight Body temperature Heart rate Oxygen saturation Oxygen saturation in Arterial blood by Pulse oximetry Systolic blood pressure Diastolic blood pressure Provider Name and Address Organization Details Last Updated DateTime 4 154.94 cm 35.5 kg/m2 54142.3 7 g 98.8 [degF] 84 /min 96 % 96 % 160 mm[Hg] 96 mm[Hg] Jenniffer Motley RN [place] [facility] [employer] 4 08:32:34 Social History Question Answer Notes LastModified by Organization Details LastModified Time Tobacco Smoking Status Never Smoker Not Available [employer] 12/30/2022 04:40:56 Do You Have An Advance Directive? No Patient Declined Informatio n. MIGRATION.0301 [id number] Information not available 12/30/2022 What Is Your Level Of Alcohol Consumption? None MIGRATION.0301 [id number] Information not available 12/30/2022 Are You Blind Or Do You Have Difficulty Seeing? No MIGRATION.0301 278006 Information not available 12/30/2022 What Is Your Level Of Caffeine Consumption? Moderate MIGRATION.0301 667360 Information not available 12/30/2022 How Much Tobacco Do You Chew? None MIGRATION.0301 747855 Information not available 12/30/2022 In The 14 Days Before Symptom Onset, Have You Had Close Contact With A Laboratory-conf irmed COVID-19 While That Case Was Ill? No MIGRATION.0301 747207 Information not available 12/30/2022 In The 14 Days Before Symptom Onset, Have You Had Close Contact With A Person Who Is Under Investigation For COVID-19 While That Person Was Ill? No MIGRATION.0301 983115 Information not available 12/30/2022 Are You Deaf Or Do You Have Serious Difficulty Hearing? Yes Patient Wears Hearing Aids. MIGRATION.0301 837473 Information not available 12/30/2022 What Type Of Diet Are You Following? REGULAR MIGRATION.0301 058563 Information not available 12/30/2022 Which Illicit Or Recreational Drugs Have You Used? None MIGRATION.0301 042253 Information not available 12/30/2022 Do You Or Have You Ever Used E-cigarettes Or Vape? 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 No MIGRATION.0301 602046 Information not available 12/30/2022 What Is The Fluoride Status Of Your Home? Unknown MIGRATION.0301 067505 Information not available 12/30/2022 Do You Use Insect Repellent Routinely? No MIGRATION.0301 853547 Information not available 12/30/2022 Where Do You Live? SingleLevelHouse MIGRATION.0301 262015 Information not available 12/30/2022 Do You Have A Medical Power Of Diagrammer And Seamer? No MIGRATION.0301 938371 Information not available 12/30/2022 What Was The Date Of Your Most Recent Tobacco Screening? 10/12/2023 [email or web address] Information not available 10/12/2023 Do You Have Any Pets? Yes MIGRATION.0301 973707 Information not available 12/30/2022 Do You Use Your Seat Belt Or Car Seat Routinely? Yes MIGRATION.0301 307837 Information not available 12/30/2022 Do You Have Smoke And Carbon Monoxide Detectors In Your Home? Yes MIGRATION.0301 948556 Information not available 12/30/2022 Are You Passively Exposed To Smoke? No MIGRATION.0301 342511 Information not available 12/30/2022 Do You Or Have You Ever Used Smokeless Tobacco? Never Used Smokeless Tobacco MIGRATION.0301 859363 Information not available 12/30/2022 Are There Any Smokers In Your House? No MIGRATION.0301 072214 Information not available 12/30/2022 How Much Tobacco Do You Smoke? No MIGRATION.0301 494313 Information not available 12/30/2022 Do You Feel Stressed (tense, Restless, Nervous, Or Anxious, Or Unable To Sleep At Night)? [id number] MIGRATION.0301 180672 Information not available 12/30/2022 Do You Use Any Illicit Or Recreational Drugs? No MIGRATION.0301 478641 Information not available 12/30/2022 Do You Use Sunscreen Routinely? No MIGRATION.0301 068007 Information not available 12/30/2022 Has Tobacco Cessation Counseling Been Provided? No MIGRATION.0301 438840 Information not available 12/30/2022 Have You Recently Traveled Abroad? No MIGRATION.0301 474592 Information not available 12/30/2022 Do You Have Any Dietary Restrictions? No MIGRATION.0301 832918 Information not available 12/30/2022 Do You Or Have You Ever Used Any Other Forms Of Tobacco Or Nicotine? No MIGRATION.0301 782878 Information not available 12/30/2022 Sex: Unknown Functional Status Question Answer Note LastModified by Organizat ion Details LastModified Time Do you have difficulty walking or climbing stairs? No MIGRATION.65151 28000 Information not available 12/30/2022 Do you have transportation difficulties? Yes Patient does not drive. MIGRATION.99879 43986 Information not available 12/30/2022 Are you able to walk? YESWOREST MIGRATION.14735 21869 Information not available 12/30/2022 Do you have difficulty doing errands alone? Yes Patient does not drive. MIGRATION.31359 99011 Information not available 12/30/2022 Are you able to care for yourself? Yes MIGRATION.41613 82140 Information not available 12/30/2022 Do you have difficulty dressing or bathing? No MIGRATION.42261 14475 Information not available 12/30/2022 What is your exercise level? Occasional MIGRATION.51045 23692 Information not available 12/30/2022 Mental Status Question Answer Note LastModified by Organizat ion Details LastModified Time Do you have difficulty concentrating, remembering or making decisions? No MIGRATION.[id number] 6 Information not available 12/30/2022 Family History Relationship Description Onset Age of this Age Resolved Age Notes LastModified by Organization Details LastModified Time Father Diabetes mellitus MIGRATION.004 [id number] Not available 12/30/2022 04:44:19 Father Benign essential hypertension MIGRATION.043 [id number] Not available 12/30/2022 04:44:19 Father Heart disease MIGRATION.352 [id number] Not available 12/30/2022 04:44:19 Mother Carcinoma in situ of colon MIGRATION.100 [id number] Not available 12/30/2022 04:44:19 Medical History Condition Response NERVE DISEASE N BLINDNESS N RHEUMATIC FEVER N KIDNEY STONES N BLADDER PROBLEMS N MRSA N OTHER # 1 N POLIO N LUNG DISEASE/DISORDER N COPD N RADIATION / CHEMOTHERAPY N Other # 2 N BLOOD DISEASES N SURGERY N EAR OR HEARING PROBLEMS N MUMPS N DEPRESSION (INCLUDING POST ) N BOWEL PROBLEMS N STROKE/TIA N ULCERS N BENIGN PROSTATIC HYPERPLASIA N MEASLES N MYOCARDIAL INFARCTION N OBESITY N GERD/NAUSEA N ANEURYSM N URINARY/BLADDER/KIDNEY PROBLEMS N CORONARY ARTERY DISEASE (CAD) N ADDICTION CONCERNS N Impotence N ENDOMETRIOSIS N USE OF BLOOD THINNERS N SKIN PROBLEMS N GASTROINTESTINAL DISORDER N PERIPHERAL VASCULAR DISEASE N MUSCLE,JOINT OR BONE PROBLEMS N GASTROINTESTINAL BLEEDING N BLOOD CLOTS N ASTHMA N CATARACTS N ERECTILE DYSFUNCTION N VARICOSITIES N GI PROBLEMS N Low Testosterone N INFERTILITY N AIDS/HIV N CHEMOTHERAPY / RADIATION N LIVER DISEASE N MALE HYPOGONADISM N HYPERTENSION N Deficiency Y ANXIETY DISORDER N BLOOD TRANSFUSION N ANEMIA/BLOOD DISORDER N CHRONIC EAR INFECTIONS N BRONCHITIS N TUBERCULOSIS N GLAUCOMA N FOOT PROBLEM N DIVERTICULITIS N SLEEP APNEA N CHICKENPOX N INFECTIOUS DISEASE N PROSTATE N HEART ARRHYTHMIA N INSOMNIA N HIGH CHOLESTEROL / HYPERLIPIDEMIA Y EYE PROBLEMS N HYPERTHYROIDISM N NEUROLOGICAL PROBLEMS N EDEMA N CHRONIC PAIN SYNDROME N HYPOTHYROIDISM N CAROTID BLOCKAGE N CONSTIPATION N BACK / NECK PROBLEMS Y HAVE YOU BEEN HOSPITALIZED OR SEEN IN [facility] IN THE PAST YEAR ? N ATHEROSCLEROSIS N BREAST PROBLEMS N DIALYSIS N ECZEMA N OSTEOPOROSIS N ARTHRITIS Y APPENDICITIS N DIABETES, TYPE N BAD TEETH N ENT N HEARTBURN / REFLUX N AUTISM SPECTRUM DISORDER (ASD) N HEPATITIS / LIVER DISEASE N GOUT N SLEEP DISORDER N ALZHEIMER'S DISEASE N Brain Problems N DEMENTIA N HERPES N SEIZURES/EPILEPSY N HEADACHES/MIGRAINES N VASCULAR DISEASE N PACEMAKER N Blood Disorder N DIZZINESS N HEART DISEASE/HEART PROBLEMS N KIDNEY DISEASE N MULTIPLE SCLEROSIS N CANCER: SPECIFY Y CARDIAC ARRHYTHMIA N ATRIAL FIBRILLATION N Gall Stones N PULMONARY EMBOLISM N AUTOIMMUNE DISEASE N Gynecological History Statement/Question Response Date of Last Pap Date of Last Mammogram 02/10/2022 Date of Last Colonoscopy 10/19/2017 Most Recent Bone Density 09/11/2020 Obstetrics History GPAL:G 0 P 0 0 0 0 Immunizations Vaccine Type Date Status Note Provider Nam e and Address Organization Details Recorded Time COVID-19, mRNA, LNP-S, PF, 30 mcg/0.3 mL dose 1 completed Not Available [facility] 06/02/2023 06:06:11 COVID-19, mRNA, LNP-S, PF, 30 mcg/0.3 mL dose 1 completed Not Available [facility] 06/02/2023 06:06:11 Influenza, high-dose, trivalent, PF 8 completed Not Available [facility] 06/02/2023 06:06:11 Influenza, split virus, quadrivalent, preservative 7 completed Not Available [facility] 06/02/2023 06:06:11 Influenza, split virus, trivalent, PF 5 completed Not Available [facility] 06/02/2023 06:06:12 Influenza, split virus, quadrivalent, preservative 6 completed Not Available [facility] 06/02/2023 06:06:11 Influenza, split virus, trivalent, PF 4 completed Not Available [facility] 06/02/2023 06:06:12 Influenza, high-dose, trivalent, PF 3 completed Not Available [facility] 06/02/2023 06:06:12 Influenza, high-dose, quadrivalent, PF 2 completed Not Available [facility] 06/02/2023 06:06:11 Influenza, high-dose, quadrivalent, PF 0 completed Not Available [facility] 06/02/2023 06:06:11 Pneumococcal conjugate PCV 13 5 completed Not Available [facility] 06/02/2023 06:06:11 Influenza, high-dose, quadrivalent, PF 3 completed Sandy Webb MD [address] [place] [address], [place] [address], [place], [address], [facility] 10/28/2023 19:02:03 Past Encounters Encounter ID Performer Location Encounter Start Date Encounter Closed Date Diagnosis/Indication Diagnosis SNOMED-CT Code Diagnosis ICD10 Code [id number] [facility] Internal [facility] [address] [facility] 15 [place] [address] 03/03/2021 00:00:00 03/03/2021 14:04:38 [id number] [facility] Internal Med [facility] [address] , [address] [address] 12/05/2021 00:00:00 12/05/2021 17:29:45 [id number] [facility] Internal Med [facility] [address] [place] [address] , [facility] 15 [place] [address] 07/21/2022 00:00:00 07/21/2022 13:24:28 [id number] [facility] [place] Med [facility] [address] [address] 07/30/2022 00:00:00 07/30/2022 11:19:32 [id number] [facility] Internal Med [facility] [address] [address] 08/25/2022 00:00:00 08/25/2022 13:23:[id number] [facility] Internal Med [facility] [address] [address] 01/26/2023 11:52:34 01/26/2023 12:33:53 Depressive disorder 13598220 F32.A Allergic rhinitis 657364 04 J30.9 Hyperlipidemia 15073412 E78.5 Prediabetes 763960330 R7 3.03 Vitamin D deficiency 347 72391 E55.9 Osteoarthritis 667949697 M19.90 Family his tory of antiphospholipid syndrome 0136903137 792123 Z83.2 Dyspnea on exertion 6084 5006 R06.09 Family his tory of Cardiovascular disease 854964405 Z82.49 Screening mammography 24 691854 Z12.31 Vaginitis 97453316 N76.0 Screening for malignant neoplasm of colon 077349850 Z12.11 Adult heal th examination 096646113 Z00.01 Depression screening 171 815594 Z13.[id number] [facility] Internal Med [facility] [address] [facility] [address] [place] [address] 06/01/2023 14:19:23 06/01/2023 15:04:07 Depressive disorder 89747340 F32.A Allergic rhinitis 580116 04 J30.9 Hyperlipidemia 75438683 E78.5 Prediabetes 412849640 R7 3.03 Vitamin D deficiency 347 82021 E55.9 Osteoarthritis 595799459 M19.90 Family his tory of antiphospholipid syndrome 7670118244 582567 Z83.2 Dyspnea on exertion 6084 5006 R06.09 Family his tory of Cardiovascular disease 654468527 Z82.49 History of malignant neoplasm of colon 577131841 Z85.038 Atrophic vaginitis 60882 000 N95.2 Chronic back pain 757285 002 G89.29 [id number] Sandy Webb MD [facility] Primary Care [facility] [address] [facility] [address] [place] [address] 10/12/2023 15:39:53 10/12/2023 16:16:58 Prediabetes 148756407 R73.03 Liver enzy mes level above reference range 379730609 R74.01 Intertrigo 69911636 L30. 4 Dementia 38374188 F03.90 R26.9 Administra tion of influenza vaccine 84673101 Z23 [id number] Sandy Webb MD [facility] Primary Care [facility] [address] [facility] [address] [place] [address] 11/18/2023 12:18:58 11/18/2023 12:59:08 Cobalamin deficiency 525740053 E53.8 Screening mammography 24 259399 Z12.31 Dementia 59556697 F03.90 R26.9 [id number] Sandy Webb MD [facility] Primary Care [facility] [address] [facility] [address] [place] [address] 01/21/2024 08:23:57 01/21/2024 08:50:02 Transition of care 7919766063 105 Z75.8 [facility] 57176869 J40 Health Concerns Section Related Observation LastModified by Organization Detai ls LastModified Time None Recorded Concern Status LastModified by Organization Details LastModified Time None Recorded Advance Directives Directive N: Patient declined informat ion. Payers Encounter Date Sequence Insurance Name Policy Number Policy Leahy Covered Member ID Leahy Member ID Guarantor Name 01/26/2023 1 [facility] (MEDICARE REPLACEMENT/A DVANTAGE - HMO) [id number] Edd S Kichler [id number] Edd S Kichler 06/01/2023 1 [facility] (MEDICARE REPLACEMENT/A DVANTAGE - HMO) [id number] Edd S Kichler [id number] Edd S Kichler 10/12/2023 1 [facility] (MEDICARE REPLACEMENT/A DVANTAGE - HMO) [id number] Edd Joneschler [id number] Edd Joneschler 11/18/2023 1 [facility] (MEDICARE REPLACEMENT/A DVANTAGE - HMO) [id number] Edd Joneschler [id number] Edd Joneschler 01/21/2024 1 [facility] (MEDICARE REPLACEMENT/A DVANTAGE - HMO) [id number] Edd Joneschler [id number] Edd Hunterer Notes Date Note Type Note Provider Name and Address Organization Details Recorded Time 01/26/2023 text/html Edd presents t chen for follow-up. She is also due for annual wellness. She is here with her yplbbark-zg-ahp. She did see the hearing impaired teacher. She had echo and stress test and everything came back negative. She has had no more episodes of shortness of breath or chest pain. 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 She had a workup done with him and he felt she did not need anything further other than a daily baby aspirin. She only has to follow up with him p.r.n. now. She reports her mood is stable on the current dose of Lexapro. She feels like this is a good dose for her. She denies any SI or HI today. We discussed her lower recent lab results. She still having issues with vaginal itching and vaginal discharge. She has no UTI on her UA. We tried to Diflucan but she tells me that did not help. She did have an appointment for colonoscopy but she had to cancel it due to illness. She would like a new order. She is also due for mammogram in January. Blaire Merchant, JERMAIN-C [address] [place] [address], [facility] [address], [place], [address], [place] [employer] 01/26/2023 13:25:37 06/01/2023 text/html Edd presents t chen for follow-up. She did see the ob gyn physician assistant and he started her on clobetasol. Her vaginitis is much improved. She continues to have issues with her chronic back pain. She takes the cyclobenzaprine as needed as well as the diclofenac. I again offered her pain management referral, she is not interested in that. She also does not want any imaging updated. She denies any bladder bowel changes, denies any saddle paresthesias, denies any numbness or tingling into the extremities. Her mood is stable on her current dose of Lexapro. She feels like this is a good dose for her. She denies any SI or HI today. She was having a difficult time getting her colonoscopy scheduled. She would like a referral to a different doctor. She is due for labs. JERMAIN Lowe-Jalil [address] [facility], [place] [address], [place], [address], [employer] [facility] [email or web address] 06/01/2023 15:07:21 10/12/2023 text/html Here to [facility], she is concerned about her memory. She loses objects, forgets conversations, no driving, walks like she's drunk, staggers backwards Sandy Webb MD [address] [facility], [place] [address], [place], [address], [employer] [facility] [email or web address] 10/28/2023 19:03:52 11/18/2023 text/html Here to [facility], she is concerned about her memory. She loses objects, forgets conversations, no driving, walks like she's drunk, staggers backwards update 11/29/23: has not heard back from neurology for appt yet. Labs showed mild b12 deficiency. Sandy Webb MD [address], [place] [address], [place], [address], [email or web address] 11/29/2023 14:16:02 01/21/2024 text/html Was seen in o n Wednesday with sneeze, cough, chest congestion, no fever, vomiting, no sob. No cxr done, was dx with bronchitis and given augmentin and prednisone. Se continues to sneeze and has mild improvement in cough but otherwise no significant change. +wheezing/musical noise with breathing. Sandy Webb MD [address] [facility], [place] [address], [place], [address], [employer] [facility] [email or web address] 01/21/2024 08:50:58 OBGyn Episode No OBEpisode recorded.
--- OUTSIDE RECORDS SUMMARY | 2024-11-04 02:23 | XMS_ITS | Clinical Summary ---
Author Organization Unknown Care Team Providers Care Childbirth And Infant Care Teacher Name Role Phone HEVER BOWMAN, SHEILA Unavailable Unavailable ANDREA PT, LOLLY Unavailable Unavailable LADI LINE CLEARANCE FOREMAN, ROCHELLE Unavailable Unavailable PITER OT, SHARON Unavailable Unavailable NAVNEET ST, BRENDA Unavailable Unavailable BANDAR RN, JILLIAN Unavailable Unavailnoel PABON LPN, JOSE MARTIN Unavailable Unavailable Payers Payer Name Policy Type Policy Number Effective Date Expira tion Date [facility]. AUTH [id number] Problems Condition Name Condition Details Condition Category Status Onset Date Resolution Date Last Treatment Date Treating Clinician Comments POLYOSTEOART HRITIS, UNSPECIFIED Active 2023-11 00:00: 00 COVID-19 Active 2023-11 00:00: 00 ACUTE RESPIRATORY FAILURE WITH HYPOXIA Active 2023-11 00:00: 00 DISORIENTATI ON, UNSPECIFIED Active 2023-11 00:00: 00 ANXIETY DISORDER, UNSPECIFIED Active 2023-11 00:00: 00 Allergies, Adverse Reactions, Alerts Allergy Name Allergy Type Status Severity Reaction(s) Onset Date Inactive Date Treating Clinician Comments PNEUMOCOCCAL VACCINE Propensity to adverse reactions Active 2023-11 08:47: 37 Medications Ordered Medication Name Filled Medication Name Start Date Stop Date Current Medication? Ordering Clinician Indication Dosage Frequency Signature (SIG) Comments Components donepezil 5 mg tablet 2023-11 00:00: 00 Yes [id number] CONFUSION Per instruc tions DAILY Per instructio ns DAILY (route: oral) Med Classific ation: Cognitive Disorder Therapy diclofenac sodium 75 mg tablet,maria elena yed release 2023-11 00:00: 00 Yes [id number] ARTHRITIS 1 tablet DAILY 1 tablet DAILY (route: oral) Med Classific ation: Analgesic , Anti-infl ammatory or Antipyret ic escitalopra m 5 mg tablet 2023-11 00:00: 00 Yes [id number] ANXIETY 1 tablet DAILY 1 tablet DAILY (route: oral) Med Classific ation: Central Nervous System Agents nystatin 100,000 unit/gram topical cream 2023-11 00:00: 00 Yes [id number] NEEDED FOR RASHES 1 inch NEEDED 1 inch NEEDED (route: topical) Med Classific ation: Dermatolo gical ondansetron HCl 4 mg tablet 2023-11 00:00: 00 Yes [id number] NEEDED FOR NAUSEA 1 tablet DAILY 1 tablet DAILY (route: oral) Med Classific ation: Gastroint estinal Therapy Agents prednisone 5 mg tablet 2023-11 00:00: 00 Yes [id number] ARTHRITIS 1 tablet DAILY 1 tablet DAILY (route: oral) Med Classific ation: Endocrine triamcinolo ne acetonide 0.1 % lotion 2023-11 00:00: 00 Yes [id number] NEEDED FOR RASHES 1 mL DAILY 1 mL DAILY (route: topical) Med Classific ation: Dermatolo gical Vitamin D3 50 mcg (2,000 unit) capsule 2023-11 00:00: 00 Yes [id number] SUPPLEMENT 1 capsule DAILY 1 capsule DAILY (route: oral) Med Classific ation: Electroly te Balance-N utritiona l Products Immunizations Ordered Immunization Name Filled Immunization Name Date Status Comments Refusal Reason INFLUENZA, TIV (INACTIVATED) 2024-08-16 00:00:00 Vital Signs Vital Name Observation Time Observation Value Commen ts Temperature 2024-10-13 07:55:00.000 97.4 [degF] Temperature 2024-10-06 12:46:00.000 97.3 [degF] Temperature 2024-10-03 14:55:00.000 97.6 [degF] Temperature 2024-09-29 09:23:00.000 97.3 [degF] BMI (%) 2024-09-29 09:14:51.000 35 kg/m2 Height 2024-09-29 09:14:39.000 61 [in_us] Pulse 2024-10-13 07:55:00.000 71 /min Pulse 2024-10-06 12:46:00.000 82 /min Pulse 2024-10-03 14:55:00.000 72 /min Pulse 2024-09-29 09:23:00.000 68 /min O2 Saturation (%) 2024-10-13 07:55:00.000 96 % O2 Saturation (%) 2024-10-03 14:55:00.000 97 % O2 Saturation (%) 2024-09-29 09:23:00.000 96 % Respirations 2024-10-13 07:55:00.000 19 /min Respirations 2024-10-06 12:46:00.000 18 /min Respirations 2024-10-03 14:55:00.000 18 /min Respirations 2024-09-29 09:23:00.000 19 /min Weight (lbs) 2024-09-29 09:14:51.000 190 [lb_av] Systolic Blood Pressure 2024-10-13 07:55:00.000 118 mm [Hg] Systolic Blood Pressure 2024-10-06 12:46:00.000 126 mm [Hg] Systolic Blood Pressure 2024-10-03 14:55:00.000 128 mm [Hg] Systolic Blood Pressure 2024-09-29 09:23:00.000 128 mm [Hg] Diastolic Blood Pressure 2024-10-13 07:55:00.000 82 mm [Hg] Diastolic Blood Pressure 2024-10-06 12:46:00.000 80 mm [Hg] Diastolic Blood Pressure 2024-10-03 14:55:00.000 72 mm [Hg] Diastolic Blood Pressure 2024-09-29 09:23:00.000 86 mm [Hg] Plan of Treatment Planned Activity Planned Date Details Comments Future Scheduled Test AGENCY MAY PERFORM A RESUMPTION OF CARE VISIT FOLLOWING ANY HOSPITAL ADMISSION. PT TO EVALUATE, OBSERVE / ASSESS, AND MONITOR, LINE CLEARANCE FOREMAN TO OBSERVE AND MONITOR, PROVIDE SKILLED THERAPEUTIC INTERVENTION, ACTIVITY, EDUCATION, AND TRAINING TO ADDRESS; [code = AGENCY MAY PERFORM A RESUMPTION OF CARE VISIT FOLLOWING ANY HOSPITAL ADMISSION. PT TO EVALUATE, OBSERVE / ASSESS, AND MONITOR, LINE CLEARANCE FOREMAN TO OBSERVE AND MONITOR, PROVIDE SKILLED THERAPEUTIC INTERVENTION, ACTIVITY, EDUCATION, AND TRAINING TO ADDRESS;] Future Scheduled Test PT / LINE CLEARANCE FOREMAN T O MONITOR AND EDUCATE ON OXYGEN SATURATION DURING ADLS/IADLS, NOTIFY PHYSICIAN AND/OR THE RN CLINICAL DATA CENTER MANAGER FOR PHYSICIAN NOTIFICATION AND IF O2 SATS BELOW PHYSICIAN ORDERED PARAMETERS AFTER 10 MIN OF REST [code = PT / LINE CLEARANCE FOREMAN TO MONITOR AND EDUCATE ON OXYGEN SATURATION DURING ADLS/IADLS, NOTIFY PHYSICIAN AND/OR THE RN CLINICAL DATA CENTER MANAGER FOR PHYSICIAN NOTIFICATION AND IF O2 SATS BELOW PHYSICIAN ORDERED PARAMETERS AFTER 10 MIN OF REST] Future Scheduled Test PT / LINE CLEARANCE FOREMAN T O INSTRUCT PATIENT/CAREGIVER ON RISK FOR HOSPITALIZATION/EMERGENCY ROOM VISITS, TEACH SIGNS AND SYMPTOMS THAT PUT PATIENT AT RISK, WHEN TO NOTIFY NURSE/PHYSICIAN OF COMPLICATIONS/DECLINE, AND WHEN TO CALL 911. [code = PT / LINE CLEARANCE FOREMAN TO INSTRUCT PATIENT/CAREGIVER ON RISK FOR HOSPITALIZATION/EMERGENCY ROOM VISITS, TEACH SIGNS AND SYMPTOMS THAT PUT PATIENT AT RISK, WHEN TO NOTIFY NURSE/PHYSICIAN OF COMPLICATIONS/DECLINE, AND WHEN TO CALL 911.] Future Scheduled Test OCCUPATION AL THERAPIST TO EVALUATE FOR ADL RETRAINING [code = OCCUPATIONAL THERAPIST TO EVALUATE FOR ADL RETRAINING ] Future Scheduled Test PT / LINE CLEARANCE FOREMAN M AY EDUCATE ON PAIN MANAGEMENT CLINICALLY INDICATED, INCLUDING NON-PHARMACOLOGICAL PAIN REDUCTION TECHNIQUES. [code = PT / LINE CLEARANCE FOREMAN MAY EDUCATE ON PAIN MANAGEMENT CLINICALLY INDICATED, INCLUDING NON-PHARMACOLOGICAL PAIN REDUCTION TECHNIQUES. ] Future Scheduled Test PT/LINE CLEARANCE FOREMAN TO IDENTIFY FALL RISK FACTORS; EDUCATE THE PATIENT/CAREGIVER ON WAYS TO REDUCE FALL RISK FACTORS AND ESTABLISH HOME EXERCISE PROGRAM TO MINIMIZE FALL RISK. MAY TEACH THE PATIENT FLOOR RECOVERY WHEN CLINICALLY APPROPRIATE [code = PT/LINE CLEARANCE FOREMAN TO IDENTIFY FALL RISK FACTORS; EDUCATE THE PATIENT/CAREGIVER ON WAYS TO REDUCE FALL RISK FACTORS AND ESTABLISH HOME EXERCISE PROGRAM TO MINIMIZE FALL RISK. MAY TEACH THE PATIENT FLOOR RECOVERY WHEN CLINICALLY APPROPRIATE] Future Scheduled Test SIT TO/FRO M STAND TRANSFERS (PT/LINE CLEARANCE FOREMAN) [code = SIT TO/FROM STAND TRANSFERS (PT/LINE CLEARANCE FOREMAN)] Future Scheduled Test PT/LINE CLEARANCE FOREMAN TO PROVIDE GAIT TRAINING FOR IMPROVED MOBILITY AND /OR TO NORMALIZE GAIT PATTERN [code = PT/LINE CLEARANCE FOREMAN TO PROVIDE GAIT TRAINING FOR IMPROVED MOBILITY AND /OR TO NORMALIZE GAIT PATTERN] Future Scheduled Test NEUROMUSCU LAR RE-EDUCATION / BALANCE / POSTURAL CONTROL (PT) [code = NEUROMUSCULAR RE-EDUCATION / BALANCE / POSTURAL CONTROL (PT)] Future Scheduled Test THERAPEUTI C EXERCISES AND ESTABLISHING A HOME EXERCISE PROGRAM (PT/LINE CLEARANCE FOREMAN) [code = THERAPEUTIC EXERCISES AND ESTABLISHING A HOME EXERCISE PROGRAM (PT/LINE CLEARANCE FOREMAN)] Goal 2024-10-13 Patient Goal - TO BE ABLE TO GET STRONGER Goal Provider Goal - Goal Provider Goal - PT LTG: PATIENT WILL MAINTAIN OXYGEN SATURATION WITHIN PHYSICIAN ORDERED PARAMETERS THROUGHOUT EPISODE OF CARE. Goal Provider Goal - PT GOAL: PATIENT/CAREGIVER WILL VERBALIZE UNDERSTANDING OF SIGNS AND SYMPTOMS THAT PUT THE PATIENT AT RISK FOR HOSPITALIZATION /EMERGENCY ROOM VISITS, WHEN TO NOTIFY NURSE/PHYSICIAN OF COMPLICATIONS/DECLINE AND WHEN TO CALL 911. Goal Provider Goal - Goal Provider Goal - PT GOAL: PATIENT WILL DEMONSTRATE UNDERSTANDING OF PAIN MANAGEMENT TECHNIQUES EVIDENCED BY ABSENCE OF PAIN AT THE END OF THE EPISODE. Goal Provider Goal - PT LTG: PATIENT/CAREGIVER WILL DEMONSTRATE ADHERENCE TO FALL REDUCTION SELF-MANAGEMENT AND REDUCING FALL RISK FACTORS TO MINIMIZE FALL RISK BY END OF EPISODE. PT LTG: PATIENT WILL BE INDEPENDENT WITH IMPLEMENTATION OF HEP WITHIN 3 WEEKS. Goal Provider Goal - PT STG: PATIENT WILL DEMONSTRATE IMPROVED ABILITY TO PERFORM SIT TO/FROM STAND TRANSFERS TO REDUCE THE RISK OF SKIN BREAKDOWN AND REDUCE FALL RISK FROM SBA TO INDEPENDENT WITHIN 2 WEEKS. Goal Provider Goal - PT LTG: PATIENT WILL DEMONSTRATE REDUCED GAIT DEVIATIONS TO REDUCE THE RISK FOR FALLING AND MINIMIZE STRAIN ON KNEES/HIPS AND BACK EVIDENCED BY IMPROVED STEP LENGTH USING FRONT WHEELED WALKER TO WALK 250 FT OF LEVEL SURFACE INDEPENDENTLY FROM SBA IN ORDER TO ACCESS MD OFFICE WITHIN 3 WEEKS. Goal Provider Goal - PT LTG: PATIENT WILL DEMONSTRATE REDUCED FALL RISK EVIDENCED BY TINETTI TEST IMPROVING FROM 13 TO 19 WITHIN 3 WEEKS. PT LTG: PATIENT WILL DEMONSTRATE IMPROVED POSTURAL CONTROL AND SENSORY INTEGRATION OF THEIR BALANCE SYSTEMS EVIDENCED BY MCTSIB IMPROVING FROM 0 TO 2 WITHIN 3 WEEKS. Goal Provider Goal - PT STG: PATIENT WILL SAFELY PERFORM HEP WITH SUPERVISION WITHIN 2 WEEKS. PT LTG: PATIENT WILL DEMONSTRATE INCREASED STRENGTH OF B LE FROM 4-/5 TO 4+/5 WITHIN 3 WEEKS IN ORDER TO AMBULATE INDEPENDENTLY. Reason for Visit INDEPENDENT WITH USE OF ASSISTIVE DEVICE Encounters Start Date/Time End Date/Time Encounter Type Admission Type Attending [facility] Care Department Encounter ID Discharge Date Discharge Status Discharge Condition Discharge Reason Percent Goals Met 2024-09-29 00:00:00 2024-10-13 00:00:00 Outpatient NEW ADMISSION LOLLY MENDEZ [facility] [id number] 2024-10-13 00:00:00 DISCHARGE TO HOME OR SELF CARE INDEPENDEN T WITH USE OF ASSISTIVE DEVICE HH OR PAL- GOALS MET 100.00
--- OUTSIDE RECORDS SUMMARY | 2024-11-04 02:23 | XMS_ITS | CONTINUITY OF CARE DOCUMENT ---
Author Name barbara jimenez Address Unknown Organization [facility] Address [address] [facility] [place] [address] Phone [phone] Care Team Providers Care Credit And Loan Collections Supervisor Name Role Phone Aureliano BOWMAN, Eliezer Unavailable MARILINMARIPOSA MATTAIE Unavailable [phone] HOPDAVID MATTA Unavailable [phone] PROBLEMS Condition Status Date Provider Notes Shortness of breath active Abelino Shahidzai Antiphospholipid syndrome active Abelino ramírez Snoring active Eliezer Bedoya MD Family hx of heart disease active Eliezer childers MD Hyperlipidemia completed - Eliezer uribe MD ENCOUNTERS Date Type Provider Location Encounter Diag nosis - In-person encounter Office Visit Eliezer Bedoya MD [facility] HyperlipidemiaFamily hx of heart diseaseSnoring VITAL SIGNS Date Observation Value Provider Body Mass Index (Ratio) 36.27 kg/m2 Jose Bedoya MD blood pressure, diastolic 88 mm[Hg] Ri reanna Perez blood pressure, systolic 132 mm[Hg] Gilberto roxi Perez blood pressure, cuff size large Ri reanna Perez oxygen saturation, oximetry 96 % Yuliana Perez respiratory rate E&M 16 /min Karina Perez pulse rate 76 /min Yuliana Palomino son weight E&M 192 [lb_av] Yuliana Palomino son height E&M 61 [in_i] Yuliana Palomino son ALLERGIES Allergy Name Onset Date Reaction Criticality Status PNEUMONIA SHOTS High Criticality act silvio HISTORY OF MEDICATION USE Medication Status Instructions Dates Provider Indications Com ments escitalopram oxalate 5 mg tablet active Abelino Shahidzai diclofenac sodium 75 mg tablet,delayed release (DR/EC) active Abelino Shahidzai SOCIAL HISTORY Date Observation Value Provider social history E&M S moking History: P rah has never smoked. Abelino Shahidzabradley smoking status Never smoker Yulaina leeon social history reviewed E&M revi ewed - no changes required Abelino Jacobsi INSURANCE PROVIDERS Payer name Policy type / Coverage type Sigel red green party ID [id number] MEDICARE COMPLETE HMO Other [id number] ADVANCE DIRECTIVES Name Date DISCUSSED - NO DECISION MADE TREATMENT PLAN Date Name Performer [id number],S, Abelino Chumedza i [id number],S, Abelino Chumedza i [id number],S, Abelino Chumedza i Cardiology Abelino Shahidzai Cardiology Abelino Shahidzai Cardiology Abelino Leach Date Name Sleep Study Home Stress Regadenoson Complete Echo HISTORY OF PROCEDURES Procedure Date Procedure Name Provider Procedure Notes S tatus EKG Eliezer Bedoya MD completed
--- OUTSIDE RECORDS SUMMARY | 2024-11-04 02:24 | XMS_ITS | Continuity of Care Document ---
Author Organization [facility] Address [address] [place] [address] Phone Care Team Providers Care Game Programer Name Role Phone Frankie Rouse Unavailable Unavailable Procedures Procedure Date Office/outpatient Visit, Est No Script Eye Exam & Treatment Refraction Eye Exam & Treatment Refraction Advance Directives Directive Yes / No Effective Date File Name No Information Encounters Encounter Description Practice Location Reason(s) For Visit Diagnoses Date Provider Providers Copied on Encounter Office/outpat ient Visit, Est [facility], [address] [place] [address] [address], [place], [place], [id number], tel:[phone] [facility] No Information 9 Nasim David. [address] , [address], [place], [place], [facility], . tel:[phone] [facility], [address] [place] [address] [address], [place], [place], [id number], tel:[phone] [facility] [place] No Information 8 Doiabigail David. [address], [place], [place], [facility], . tel:[phone] [facility], [address], [place], [place], [id number], tel:[phone] [facility] [place] No Information 7 Doiabigail David. [address] , [address], [place], [address], [place]. tel:[phone] Family History Family Member Type Diagnosis Age At Onset No Information Payers Payer name Insurance type Covered alliance party ID Authortobia steph(s) Abrahamtna Commercial CI [id number] [place] [id number] Social History Type Description Quantity Date Captured Comments Sex Female Smoking Status No Information Chief Complaint And Reason For Visit No Information Reason For Referral Reason For Referral No Information History Of Present Illness Encounter Date Complaint History Of Prese nt Illness No Information Functional Status Date Functional Assessmen t No Information Instructions Date Instruction Additional Infor mation No Information Assessments Type Assessment Date No Information Patient Care Teams Name Effective Dates (start - stop) Status Members No Information
--- OUTSIDE RECORDS SUMMARY | 2024-11-04 02:24 | XMS_ITS | Clinical Summary ---
Author Organization Unknown Care Team Providers Care Overnight Stocker Name Role Phone HEVER BOWMAN, SHEILA Unavailable Unavailable ANDREA PT, LOLLY Unavailable Unavailable LADI CORONARY CARE UNIT NURSE, ROCHELLE Unavailable Unavailable PITER OT, SHARON Unavailable Unavailable NAVNEET ST, BRNEDA Unavailable Unavailable BANDAR RN, JILLIAN Unavailable Unavailnoel PABON LPN, JOSE MARTIN Unavailable Unavailable Payers Payer Name Policy Type Policy Number Effective Date Expira tion Date [id number] AUTH [id number] Problems Condition Name Condition Details Condition Category [...] 5 mg tablet 2023-11 00:00: 00 Yes [id number] CONFUSION Per instruc tions DAILY Per instructio ns DAILY (route: oral) Med Classific ation: Cognitive Disorder Therapy diclofenac sodium 75 mg tablet,maria elena yed release 2023-11 00:00: 00 Yes [id number] ARTHRITIS 1 tablet DAILY 1 tablet DAILY (route: oral) Med Classific ation: Analgesic , Anti-infl ammatory or Antipyret ic escitalopra m 5 mg tablet 2023-11 00:00: 00 Yes [id number] ANXIETY 1 tablet DAILY 1 tablet DAILY (route: oral) Med Classific ation: Central Nervous System Agents nystatin 100,000 unit/gram topical cream 2023-11 00:00: 00 Yes [id number] NEEDED FOR RASHES 1 inch NEEDED 1 inch NEEDED (route: topical) Med Classific ation: Dermatolo gical ondansetron HCl 4 mg tablet 2023-11 00:00: 00 Yes [id number] NEEDED FOR NAUSEA 1 tablet DAILY 1 tablet DAILY (route: oral) Med Classific ation: Gastroint estinal Therapy Agents prednisone 5 mg tablet 2023-11 00:00: 00 Yes [id number] ARTHRITIS 1 tablet DAILY 1 tablet DAILY (route: oral) Med Classific ation: Endocrine triamcinolo ne acetonide 0.1 % lotion 2023-11 00:00: 00 Yes [id number] NEEDED FOR RASHES 1 mL DAILY 1 mL DAILY (route: topical) Med Classific ation: Dermatolo gical Vitamin D3 50 mcg (2,000 unit) capsule 2023-11 00:00: 00 Yes [id number] SUPPLEMENT 1 capsule DAILY 1 capsule DAILY [...] TO EVALUATE, OBSERVE / ASSESS, AND MONITOR, CORONARY CARE UNIT NURSE TO OBSERVE AND MONITOR, PROVIDE SKILLED THERAPEUTIC INTERVENTION, ACTIVITY, EDUCATION, AND TRAINING TO ADDRESS; [code = AGENCY MAY PERFORM A RESUMPTION OF CARE VISIT FOLLOWING ANY HOSPITAL ADMISSION. PT TO EVALUATE, OBSERVE / ASSESS, AND MONITOR, CORONARY CARE UNIT NURSE TO OBSERVE AND MONITOR, PROVIDE SKILLED THERAPEUTIC INTERVENTION, ACTIVITY, EDUCATION, AND TRAINING TO ADDRESS;] Future Scheduled Test PT / CORONARY CARE UNIT NURSE T O MONITOR AND EDUCATE ON OXYGEN SATURATION DURING ADLS/IADLS, NOTIFY PHYSICIAN AND/OR THE RN CLINICAL WEB UI SOFTWARE ENGINEER FOR PHYSICIAN NOTIFICATION AND IF O2 SATS BELOW PHYSICIAN ORDERED PARAMETERS AFTER 10 MIN OF REST [code = PT / CORONARY CARE UNIT NURSE TO MONITOR AND EDUCATE ON OXYGEN SATURATION DURING ADLS/IADLS, NOTIFY PHYSICIAN AND/OR THE RN CLINICAL WEB UI SOFTWARE ENGINEER FOR PHYSICIAN NOTIFICATION AND IF O2 SATS BELOW PHYSICIAN ORDERED PARAMETERS AFTER 10 MIN OF REST] Future Scheduled Test PT / CORONARY CARE UNIT NURSE T O INSTRUCT PATIENT/CAREGIVER ON RISK FOR HOSPITALIZATION/EMERGENCY ROOM VISITS, TEACH SIGNS AND SYMPTOMS THAT PUT PATIENT AT RISK, WHEN TO NOTIFY NURSE/PHYSICIAN OF COMPLICATIONS/DECLINE, AND WHEN TO CALL 911. [code = PT / CORONARY CARE UNIT NURSE TO INSTRUCT PATIENT/CAREGIVER ON RISK FOR HOSPITALIZATION/EMERGENCY ROOM VISITS, TEACH SIGNS AND SYMPTOMS THAT PUT PATIENT AT RISK, WHEN TO NOTIFY NURSE/PHYSICIAN OF COMPLICATIONS/DECLINE, AND WHEN TO CALL 911.] Future Scheduled Test OCCUPATION AL THERAPIST TO EVALUATE FOR ADL RETRAINING [code = OCCUPATIONAL THERAPIST TO EVALUATE FOR ADL RETRAINING ] Future Scheduled Test PT / CORONARY CARE UNIT NURSE M AY EDUCATE ON PAIN MANAGEMENT CLINICALLY INDICATED, INCLUDING NON-PHARMACOLOGICAL PAIN REDUCTION TECHNIQUES. [code = PT / CORONARY CARE UNIT NURSE MAY EDUCATE ON PAIN MANAGEMENT CLINICALLY INDICATED, INCLUDING NON-PHARMACOLOGICAL PAIN REDUCTION TECHNIQUES. ] Future Scheduled Test PT/CORONARY CARE UNIT NURSE TO IDENTIFY FALL RISK FACTORS; EDUCATE THE PATIENT/CAREGIVER ON WAYS TO REDUCE FALL RISK FACTORS AND ESTABLISH HOME EXERCISE PROGRAM TO MINIMIZE FALL RISK. MAY TEACH THE PATIENT FLOOR RECOVERY WHEN CLINICALLY APPROPRIATE [code = PT/CORONARY CARE UNIT NURSE TO IDENTIFY FALL RISK FACTORS; EDUCATE THE PATIENT/CAREGIVER ON WAYS TO REDUCE FALL RISK FACTORS AND ESTABLISH HOME EXERCISE PROGRAM TO MINIMIZE FALL RISK. MAY TEACH THE PATIENT FLOOR RECOVERY WHEN CLINICALLY APPROPRIATE] Future Scheduled Test SIT TO/FRO M STAND TRANSFERS (PT/CORONARY CARE UNIT NURSE) [code = SIT TO/FROM STAND TRANSFERS (PT/CORONARY CARE UNIT NURSE)] Future Scheduled Test PT/CORONARY CARE UNIT NURSE TO PROVIDE GAIT TRAINING FOR IMPROVED MOBILITY AND /OR TO NORMALIZE GAIT PATTERN [code = PT/CORONARY CARE UNIT NURSE TO PROVIDE GAIT TRAINING FOR IMPROVED MOBILITY AND /OR TO NORMALIZE GAIT PATTERN] Future Scheduled Test NEUROMUSCU LAR RE-EDUCATION / BALANCE / POSTURAL CONTROL (PT) [code = NEUROMUSCULAR RE-EDUCATION / BALANCE / POSTURAL CONTROL (PT)] Future Scheduled Test THERAPEUTI C EXERCISES AND ESTABLISHING A HOME EXERCISE PROGRAM (PT/CORONARY CARE UNIT NURSE) [code = THERAPEUTIC EXERCISES AND ESTABLISHING A HOME EXERCISE PROGRAM (PT/CORONARY CARE UNIT NURSE)] Goal 2024-10-13 Patient Goal - TO BE [...] End Date/Time Encounter Type Admission Type Attending [facility] Care Department Encounter ID Discharge Date Discharge Status Discharge Condition Discharge Reason Percent Goals Met 2024-09-29 00:00:00 2024-10-13 00:00:00 Outpatient NEW ADMISSION [facility] [id number] 2024-10-13 00:00:00 DISCHARGE TO HOME OR SELF CARE INDEPENDEN T WITH USE OF ASSISTIVE DEVICE HH OR PAL- GOALS MET 100.00
== END 2024-10-28 02:41 | disposition left against medical advice (07) ==
LOC: ANHED 10-28 02:49
PROVIDERS: PCP Internal Medicine
DX: R05.9 Cough, unspecified (principal)
CPT/HCPCS: 99199